=== PATIENT | female | born 1935 | race Caucasian/White ===

== ENCOUNTER 2018-12-09 14:19 | Inpatient (IN) ==
[2018-12-09] MEDS ORDERED: ONDANSETRON INJ 2 MG/ML 2 ML VIAL IV STA (14:33)
[2018-12-09] MEDS ORDERED: SODIUM CHLORIDE 0.9% 1000ML 1,000 ML IV ONE ×2 (14:33→15:59)
[2018-12-09] MEDS ORDERED: MoRPHine SULFATE 4 MG/ML 1 ML CARP\\VIAL IV STA (14:33)
[2018-12-09] MEDS ORDERED: MoRPHine SULFATE 2 MG/ML CARP ONE (14:48)
--- NOTE | 2018-12-09 14:49 | Emergency Department Note ---
Entered by Gogo Sosa acting as a scribe for Aniket Cruz MD History of Present Illness General Chief complaint: Illness Stated complaint: illness Time Seen by Provider: 12/09/18 14:21 Source: family (daughter; granddaughter) History of Present Illness Onset (ago): week(s) 1 Location: abdomen (left lower) Pain Consistency: + intermittent Quality: + sharp Relieved By: + medication (Tylenol) Exacerbated By: + eating and + other (going to the bathroom) Associated symptoms: + nausea/vomiting (positive nausea; negative vomiting ) and + other (positive bloody bowel movements; positive losing weight) Treatments prior to arrival: NSAID (ibuprofen ) The patient is a 83 year old white female w/ PMHx of ulcerative colitis who presents to the ED w/ CC of intermittent left lower abdominal pain beginning about one week prior to arrival, per the patient's granddaughter who is acting as the patient's outside rigger. The patient's daughter describes the patient's pain as sharp and states that this pain is exacerbated with eating and going to the bathroom. Per the patient's granddaughter, the patient states that this is not similar to her prior flare ups of ulcerative colitis. The patient's granddaughter states that the patient has been nauseous during this time, but denies vomiting. Per the patient's granddaughter, the patient has had blood bowel movements during this time. The patient's granddaughter states that the patient has been unable to eat or drink during this time, and states that the patient is losing weight. The patient's family denies any recent antibiotic use, recent travel, and recent surgeries. The patient's family states that the patient typically manages her ulcerative colitis through diet, and state that the patient tried to do a cleanse before her symptoms began. The patient's fami ly states that the patient has been taking Ibuprofen which has been relieving her pain. 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 and A total of 10 systems reviewed and were otherwise negative Physical Exam Vital Signs Vital Signs - 24 hr 12/09/18 14:34 12/09/18 15:33 12/09/18 17:45 Temperature 36.6 C Temperature Source Oral Sepsis Recent Fever Within 48 Hours No Sepsis Action Taken by Nursing No Action Required Pulse Rate 78 Pulse Rate [Apical] 172 H 73 Respiratory Rate 20 18 18 Respiratory Effort / Characteristics Non-Labored Respiratory Depth Normal Blood Pressure 142/81 H Blood Pressure [Right Arm] 110/85 137/73 Blood Pressure Mean 101 Blood Pressure Mean [Right Arm] 93 94 Pulse Oximetry 98 98 95 Oxygen Delivery Method Room Air Room Air 12/09/18 20:00 Temperature Temperature Source Sepsis Recent Fever Within 48 Hours Sepsis Action Taken by Nursing Pulse Rate Pulse Rate [Apical] 80 Respiratory Rate 24 Respiratory Effort / Characteristics Non-Labored Spontaneous Labored Respiratory Depth Normal Blood Pressure Blood Pressure [Right Arm] 120/80 Blood Pressure Mean Blood Pressure Mean [Right Arm] 93 Pulse Oximetry 96 Oxygen Delivery Method Room Air GENERAL: Short, thin, and cachectic in appearance. Non-toxic. EYE EXAM: Normal conjunctiva. PERRL, no anisocoria and EOM's grossly intact w/o pain. OROPHARYNX: Dry mucus membranes. Grossly normal dentition. NECK: Supple, no nuchal rigidity, no adenopathy, non-tender. no signs of meningismus. LUNGS: Clear to auscultation. Normal chest wall mechanics. HEART: NSR, no MRG. ABDOMEN: Mild diffuse abdominal discomfort. Not peritonitic. Abdomen soft, normo-active bowel sounds, no masses, no rebound or guarding. BACK: No CVA TTP. SKIN: No rashes and no bruising. UPPER EXTREMITIES: Upper extremities are grossly normal. LOWER EXTREMITIES: No pitting edema. No calf pain. NEURO EXAM: A&O x3, cranial nerves II-XII grossly intact, normal speech, moves all 4 extremities on command w/o issue. Course 1423: Past medical records reviewed. The patient was evaluated in room C11B. A complete history and physical exam was performed. 1517: The patient has heme positive stool with bright red blood. 1628: Upon viewing the color television console monitor, the patient now appears to be in sinus rhythm with her rate in the 60s. 1738: I updated the patient and her family. 1840: I discussed the case with Bambi SANDS who accepts the patient for further evaluation under Dr. Esposito Hospitalist service. Consultations Consultation #1: I discussed the case with Bambi SANDS who accepts the patient for further evaluation under Dr. Esposito Hospitalist service. Time: 18:40 Administered Medications Sodium Chloride (Nss) 500 mls @ 80 mls/hr IV .Q6H15M CHARI Stop: 01/08/19 18:44 Last Infusion: 12/09/18 22:52 Dose: 80 mls/hr Documented by: [id number] Infusion: 12/09/18 21:56 Dose: 0 mls/hr Documented by: [id number] Admin: 12/09/18 19:01 Dose: 80 mls/hr Documented by: [id number] Lorazepam (Ativan) 0.5 mg PO HS PRN PRN Reason: Insomnia Stop: 01/08/19 21:59 Last Admin: 12/09/18 22:56 Dose: 0.5 mg Documented by: [id number] Morphine Sulfate (Morphine Sulfate) 2 mg IV Q2H PRN PRN Reason: Severe Pain Stop: 12/23/18 21:57 Last Admin: 12/09/18 22:56 Dose: 2 mg Documented by: [id number] Discontinued Medications Calcium Carbonate (Tums) 1,500 mg PO NOW STA Stop: 12/09/18 16:00 Last Admin: 12/09/18 16:23 Dose: 1,500 mg Documented by: [id number] Sodium Chloride (Nss 1000ml) 1,000 mls @ 999 mls/hr IV .Q1H1M ONE Stop: 12/09/18 15:33 Last Infusion: 12/09/18 15:45 Dose: 0 mls/hr Documented by: [id number] Admin: 12/09/18 15:28 Dose: 999 mls/hr Documented by: [id number] Sodium Chloride (Nss 1000ml) 1,000 mls @ 999 mls/hr IV .Q1H1M ONE Stop: 12/09/18 16:59 Last Infusion: 12/09/18 18:59 Dose: 0 mls/hr Documented by: [id number] Admin: 12/09/18 16:17 Dose: 999 mls/hr Documented by: [id number] Piperacillin Sod/Tazobactam Sod (Zosyn) 4.5 gm in 120 mls @ 240 mls/hr IV NOW ONE Stop: 12/09/18 18:40 Last Infusion: 12/09/18 19:31 Dose: 0 mls/hr Documented by: [id number] Admin: 12/09/18 18:59 Dose: 240 mls/hr Documented by: [id number] Ioversol (Optiray 320 100ml) 62 ml IV ONCE PRN PRN Reason: Interaction Checking Stop: 12/13/18 17:11 Last Admin: 12/09/18 17:13 Dose: 62 ml Documented by: [id number] Morphine Sulfate (Morphine Sulfate) 2 mg IV NOW STA Stop: 12/09/18 14:34 Last Admin: 12/09/18 15:29 Dose: Not Given Documented by: [id number] Morphine Sulfate (Morphine Sulfate) Confirm Administered Dose 2 mg .ROUTE .STK- MED ONE Stop: 12/09/18 14:49 Last Admin: 12/09/18 15:29 Dose: 2 mg Documented by: [id number] Morphine Sulfate (Morphine Sulfate) 2 mg IV NOW STA Stop: 12/09/18 19:12 Last Admin: 12/09/18 19:27 Dose: 2 mg Documented by: [id number] Ondansetron HCl (Zofran) 4 mg IV NOW STA Stop: 12/09/18 14:34 Last Admin: 12/09/18 15:28 Dose: 4 mg Documented by: [id number] Potassium Chloride (Joyce Ciel Elix) 40 meq PO NOW STA Stop: 12/09/18 16:00 Last Admin: 12/09/18 19:16 Dose: Not Given Documented by: [id number] Potassium Chloride (Klor-Con M20) 40 meq PO NOW STA Stop: 12/09/18 16:10 Last Admin: 12/09/18 16:23 Dose: 40 meq Documented by: [id number] Medical Decision Making Medical Records Attestation: I reviewed the patient's medical records. Home Medications Current Medication List: was personally reviewed by me Laboratory Data Attestation: I reviewed the patient's lab results. Result diagrams: 12/09/18 15:26 12/09/18 15:26 Lab Results 12/09/18 12/09/18 12/09/18 Range/Units 14:51 14:51 15:26 WBC 18.90 H (4.8-10.8) K/uL RBC 5.13 (4.2-5.4) M/uL Hgb 15.8 (12.0-16.0) g/dL Hct 45.1 (37-47) % MCV 87.9 (80-100) fL MCH 30.8 (25-34) pg MCHC 35.0 (32-36) g/dL RDW Std Deviation 48.4 H (36.4-46.3) fL RDW Coeff of Yasmany 15.1 H (11.5-14.5) % Plt Count 451 H (130-400) K/uL MPV 10.4 (7.4-10.4) fL Immature Gran % (Auto) 0.5 % Neut % (Auto) 87.0 % Lymph % (Auto) 8.4 % Haakon % (Auto) 3.8 % Eos % (Auto) 0.1 % Baso % (Auto) 0.2 % Immature Gran # (Auto) 0.09 H (0.00-0.02) K/uL Neut # (Auto) 16.45 H (1.4-6.5) K/uL Lymph # (Auto) 1.59 (1.2-3.4) K/uL Haakon # (Auto) 0.71 H (0.11-0.59) K/uL Eos # (Auto) 0.02 (0-0.5) K/uL Baso # (Auto) 0.04 (0-0.2) K/uL PT (9.0-12.0) Seconds INR (0.9-1.1) APTT (21.0-31.0) Seconds PTT Ratio Sodium (136-145) mmol/L Potassium (3.5-5.1) mmol/L Chloride (98-107) mmol/L Carbon Dioxide (21-32) mmol/L Anion Gap (3-11) BUN (7-18) mg/dl Creatinine (0.6-1.2) mg/dl Est Cr Clr Drug Dosing ml/min Est GFR ( Amer) Est GFR (Non-Af Amer) BUN/Creatinine Ratio (10-20) Glucose (70-99) mg/dl Calcium (8.5-10.1) mg/dl Magnesium (1.8-2.4) mg/dl Total Bilirubin (0.2-1) mg/dl AST (15-37) U/L ALT (12-78) U/L Alkaline Phosphatase (45-117) U/L Total Protein (6.4-8.2) gm/dl Albumin (3.4-5.0) gm/dl Globulin (2.5-4.0) gm/dl Albumin/Globulin Ratio (0.9-2) Lipase (73-393) U/L Stl C. diff Tox B Gene Negative Cdiff Gene (Neg) Stl C. diff [id number] Cancelled C. difficile Tox B Gene Cancelled 12/09/18 12/09/18 Range/Units 15:26 15:26 WBC (4.8-10.8) K/uL RBC (4.2-5.4) M/uL Hgb (12.0-16.0) g/dL Hct (37-47) % MCV (80-100) fL MCH (25-34) pg MCHC (32-36) g/dL RDW Std Deviation (36.4-46.3) fL RDW Coeff of Yasmany (11.5-14.5) % Plt Count (130-400) K/uL MPV (7.4-10.4) fL Immature Gran % (Auto) % Neut % (Auto) % Lymph % (Auto) % Haakon % (Auto) % Eos % (Auto) % Baso % (Auto) % Immature Gran # (Auto) (0.00-0.02) K/uL Neut # (Auto) (1.4-6.5) K/uL Lymph # (Auto) (1.2-3.4) K/uL Haakon # (Auto) (0.11-0.59) K/uL Eos # (Auto) (0-0.5) K/uL Baso # (Auto) (0-0.2) K/uL PT 11.5 (9.0-12.0) Seconds INR 1.1 (0.9-1.1) APTT 25.3 (21.0-31.0) Seconds PTT Ratio 0.9 Sodium 143 (136-145) mmol/L Potassium 2.6 L (3.5-5.1) mmol/L Chloride 102 (98-107) mmol/L Carbon Dioxide 27 (21-32) mmol/L Anion Gap 13.0 H (3-11) BUN 51 H (7-18) mg/dl Creatinine 1.34 H (0.6-1.2) mg/dl Est Cr Clr Drug Dosing 17.6 ml/min Est GFR ( Amer) 42.4 Est GFR (Non-Af Amer) 36.5 BUN/Creatinine Ratio 38.0 H (10-20) Glucose 89 (70-99) mg/dl Calcium 8.3 L (8.5-10.1) mg/dl Magnesium 2.4 (1.8-2.4) mg/dl Total Bilirubin 0.4 (0.2-1) mg/dl AST 35 (15-37) U/L ALT 30 (12-78) U/L Alkaline Phosphatase 190 H (45-117) U/L Total Protein 5.9 L (6.4-8.2) gm/dl Albumin 1.8 L (3.4-5.0) gm/dl Globulin 4.1 H (2.5-4.0) gm/dl Albumin/Globulin Ratio 0.4 L (0.9-2) Lipase 155 (73-393) U/L Stl C. diff Tox B Gene (Neg) Stl C. diff [id number] C. difficile Tox B Gene Imaging Data Radiologist's Impression: Radiology results as stated below per my review and the radiologist's interpretation: CT OF THE ABDOMEN AND PELVIS WITH CONTRAST CLINICAL HISTORY: Diffuse abdominal pain. COMPARISON STUDY: None. TECHNIQUE: Following IV administration of 62 mL of Optiray-320, axial images of the abdomen and pelvis were obtained from the lung bases to the proximal femurs. Images were reviewed in the axial, sagittal, and coronal planes. IV contrast was administered without complication. Automated exposure control was utilized for the study. A dose lowering technique was utilized adhering to the principles of ALARA. CT DOSE: 215.65 mGy.cm FINDINGS: Lung bases are unremarkable. The liver, spleen, adrenal glands and pancreas are unremarkable. There is no pancreatic ductal dilatation. There is mild dilatation of the common bile duct. There are tiny densities within the distal common bile duct which favor tiny stones. There are gallstones within the gallbladder. The gallbladder is not distended. Note is made of a 2.2 cm focus of fat within the right upper quadrant, adjacent to the gallbladder fundus. This is intraperitoneal location. Moderate wall thickening of the colon and rectum is noted. There is no free air or abscess. No pneumatosis or portal venous gas is present. Sensitivity for detection mucosal lesions is diminished given CT technique. The appendix is not visualized. A few uterine fibroids are noted, one of which is partially calcified. Note is made of an 11 x 8.7 cm fat-containing right adnexal mass which contains a fat/fluid level and a 4.3 cm central density suggestive of a Rokitansky nodule. There is no lymphadenopathy. Mild diffuse mesenteric infiltration is noted. There is no abscess. No suspicious osseous le jesi is present. IMPRESSION: 1. 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 2.2 cm focus of fat within the right upper quadrant suggests minimal spontaneous rupture of the dermoid. Mild diffuse mesenteric infiltration is nonspecific and a chemical peritonitis cannot be excluded. Gynecologic consultation is recommended. Findings discussed with Dr. Cruz at time of dictation. 2. Moderate wall thickening of the colon and rectum which represents a nonspecific pancolitis. No abscess or free air. 3. Cholelithiasis. 4. Suspected small common bile duct calculi with mild dilatation of the common bile duct. Electronically signed by: Grant Berry M.D. 12/09/2018 5:34 PM ECG Data Attestation: I personally reviewed and interpreted this ECG as follows: Indication: abdominal pain Rate (beats per minute): 137 Rhythm: other (sinus tachycardia vs SVT vs atrial flutter) Findings: + other (monomorphic with narrow QRS; prolonged QTC) Blood Pressure Blood Pressure Findings: Normal blood pressure MDM Narrative The patient is a 83 year old white female w/ PMHx of ulcerative colitis who pre sents to the ED w/ CC of intermittent left lower abdominal pain beginning about one week prior to arrival, per the patient's granddaughter who is acting as the patient's outside rigger. Differential diagnosis: Etiologies such as appendicitis, diverticulitis, PUD, biliary pathology, UTI, pancreatitis, obstruction, mesenteric ischemia, aortic pathology, infections, inflammatory bowel disease, renal colic, as well as others were entertained. Patient was seen and evaluated the bedside. The patient was brought in by her family as the patient has had approximate 1 week of symptoms. The patient been having some worsening abdominal discomfort and associated bleeding with bowel movements as well as more frequent bowel movements. Patient is a prior history of ulcerative colitis but is only been treated with diet for the last 40 years and does not take any medications. Patient does not take any anticoagulant or antiplatelet medications. The patient has been taking ibuprofen 800 mg once daily which does help improve her discomfort. Patient is fairly thin and cachectic. The patient did a blood work completed along with CT of the pelvis and was given medications for symptom improvement and IV fluids given that she appears dry. The patient's blood work does show a white count of 18. Given the patient's abdominal discomfort and associated rectal bleeding was given Zosyn. 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 After discussion with the patient's family the patient had been told that she had had a benign tumor within the abdomen for some time. It does not show that there is any evidence of obstruction and no abscess. The patient does have an element of c olitis. There is no evidence of abscess or free air. The white count may simply be reactive from her history of ulcerative colitis but given the after mentioned treated empirically with antibiotics. The patient is afebrile. The patient did have runs of tachycardia that may been related to possible SVT versus AVNRT versus atrial but the patient was significant in the hypokalemic and associated hypercalcemia with dehydration from her diarrhea that she was treated symptomatically by repeating her electrolytes as well as IV fluids. This seem to resolve her tachycardia. I did review the patient's continuous ekg monitor tech after this been completed and the patient appeared to be in normal sinus rate and rhythm with a rate in the 60s. I did discuss the findings with the patient's family at the bedside. They are comfortable with staying at this hospital at this time. I did speak with the o n-call hospitalist agreed to further evaluate treat the patient. Patient was admitted to the medicine service. Of note the patient did have some associated cholelithiasis as well as may be mildly elevated CBD. The patient's T bili is normal. Patient does not localize to the right upper quadrant. Impression & Plan Ulcerative colitis, Abdominal pain, Dehydration, Hypokalemia, Hypocalcemia, Dermoid tumor Discharge Plan Visit Data *Final* Discharge Date/Time: 12/09/18 20:55 Chief Complaint: Illness Stated Complaint: illness ED Provider: Aniket Cruz Discharge Problem: Ulcerative colitis, Abdominal pain, Dehydration, Hypokalemia, Hypocalcemia, Dermoid tumor Patient Disposition: Admitted As Inpatient Discharge Instructions Interventions: ED Discharge Assessment Last Done: 12/09/18 20:55 Discharge Problem: Ulcerative colitis Qualifiers: Ulcerative colitis location: unspecified ulcerative colitis location Digestive disease complication type: with rectal bleeding Qualified Code(s): K51.911 - Ulcerative colitis, unspecified with rectal bleeding Abdominal pain Qualifiers: Abdominal location: lower abdomen, unspecified Qualified Code(s): R10.30 - Lower abdominal pain, unspecified The scribe's documentation has been prepared under my direction and personally reviewed by me in its entirety. I confirm that the note above accurately reflects all work, treatment, procedures, and medical decision making performed by me.
[2018-12-09 15:43] LABS: Basophils # (auto) 0.04 K/uL (0-0.2); Basophils % (auto) 0.2 %; Eosinophils # (auto) 0.02 K/uL (0-0.5); Eosinophils % (auto) 0.1 %; Hematocrit (blood only) 45.1 % (37-47); Hemoglobin 15.8 g/dL (12.0-16.0); Immature Granulocytes # (auto) 0.09 K/uL (0.00-0.02); Immature Granulocytes % (auto) 0.5 %; Lymphocytes # (auto) 1.59 K/uL (1.2-3.4); Lymphocytes % (auto) 8.4 %; Mean Corpuscular Volume 87.9 fL (80-100); Mean Platelet Volume 10.4 fL (7.4-10.4); Monocytes # (auto) 0.71 K/uL (0.11-0.59); Monocytes % (auto) 3.8 %; Neutrophils # (auto) 16.45 K/uL (1.4-6.5); Platelet Count 451 K/uL (130-400); RDW Coefficient of Variation 15.1 % (11.5-14.5); RDW Standard Deviation 48.4 fL (36.4-46.3); Red Blood Count 5.13 M/uL (4.2-5.4)
[2018-12-09 15:47] LABS: INR 1.1 (0.9-1.1); Partial Thromboplastin Ratio 0.9; Partial Thromboplastin Time 25.3 Seconds (21.0-31.0); Prothrombin Time 11.5 Seconds (9.0-12.0)
[2018-12-09 15:55] LABS: Albumin Level 1.8 gm/dl (3.4-5.0); Calcium 8.3 mg/dl (8.5-10.1); Creatinine Clr Calc Pharmacy 17.6 ml/min; Est GFR (African American) 42.4; Est GFR (Non-African American) 36.5; Magnesium 2.4 mg/dl (1.8-2.4); Potassium 2.6 mmol/L (3.5-5.1)
[2018-12-09 15:58] LABS: Albumin Globulin Ratio 0.4 (0.9-2); Bilirubin,Total 0.4 mg/dl (0.2-1); Globulin 4.1 gm/dl (2.5-4.0); Total Protein 5.9 gm/dl (6.4-8.2)
[2018-12-09] MEDS ORDERED: POTASSIUM CHLORIDE 20 MEQ/15 ML UDC PO STA (15:59)
[2018-12-09] MEDS ORDERED: CALCIUM CARBONATE 500 MG CHEWABLE TAB PO STA (15:59)
[2018-12-09] MEDS ORDERED: POTASSIUM CHLORIDE 20 MEQ TABCR PO STA (16:09)
[2018-12-09] MEDS ORDERED: IOVERSOL 100ml IV PRN (17:12)
--- NOTE | 2018-12-09 17:35 | CT Scan Report ---
CT OF THE ABDOMEN AND PELVIS WITH CONTRAST CLINICAL HISTORY: Diffuse abdominal pain. COMPARISON STUDY: None. TECHNIQUE: Following IV administration of 62 mL of Optiray-320, axial images of the abdomen and pelvi s were obtained from the lung bases to the proximal femurs. Images were reviewed in the axial, sagitt al, and coronal planes. IV contrast was administered without complication. Automated exposure contro l was utilized for the study. A dose lowering technique was utilized adhering to the principles of A RUPALI. CT DOSE: 215.65 mGy.cm FINDINGS: Lung bases are unremarkable. The liver, spleen, adrenal glands and pancreas are unremarkabl e. There is no pancreatic ductal dilatation. There is mild dilatation of the common bile duct. There are tiny densities within the distal common bile duct which favor tiny stones. There are gallstones w ithin the gallbladder. The gallbladder is not distended. Note is made of a 2.2 cm focus of fat within the right upper quadrant, adjacent to the gallbladder fundus. This is intraperitoneal location. Mode rate wall thickening of the colon and rectum is noted. There is no free air or abscess. No pneumatosi s or portal venous gas is present. Sensitivity for detection mucosal lesions is diminished given CT t echnique. The appendix is not visualized. A few uterine fibroids are noted, one of which is partially calcified. Note is made of an 11 x 8.7 cm fat-containing right adnexal mass which contains a fat/flu id level and a 4.3 cm central density suggestive of a Rokitansky nodule. There is no lymphadenopathy. Mild diffuse mesenteric infiltration is noted. There is no abscess. No suspicious osseous lesion is present. IMPRESSION: 1. 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 2.2 cm focus of fat w ithin the right upper quadrant suggests minimal spontaneous rupture of the dermoid. Mild diffuse mese nteric infiltration is nonspecific and a chemical peritonitis cannot be excluded. Gynecologic consult ation is recommended. Findings discussed with Dr. Cruz at time of dictation. 2. Moderate wall thickening of the colon and rectum which represents a nonspecific pancolitis. No abs cess or free air. 3. Cholelithiasis. 4. Suspected small common bile duct calculi with mild dilatation of the common bile duct. Electronically signed by: Grant Berry M.D. 12/09/2018 5:34 PM
[2018-12-09] MEDS ORDERED: PIPERACILLIN/TAZOBACTAM 4.5 GM/120 ML BAG IV ONE (18:11)
[2018-12-09] MEDS ORDERED: PIPERACILL/TAZOBAC CONSULT ACTIVE PRN (18:11)
[2018-12-09] MEDS: SODIUM CHLORIDE 0.9% 500 ML IV SCH (19:01)
[2018-12-09] MEDS ORDERED: MoRPHine SULFATE 2 MG/ML CARP IV STA (19:11)
--- NOTE | 2018-12-09 20:05 | History & Physical Report ---
Date of Service December 09, 2018 Assessment & Plan (1) Pancolitis: (2) Rectal bleeding: Patient with reported history of ulcerative colitis diagnosed in 1960s in [place] and reports was initially treated with medications has not been on any medication treatment for approximately 20 years and has not received any further follow-up. Reported intermittent episodes of bloody stools several times of year with reported symptoms controlled with diet modifications. Presented with complaint of lower abdominal pain for 5 days with associated bloody loose stools and nausea. Patient has not been eating or drinking the past several days. Denies known fever In ER patient afebrile, initial pulse 78 with episode of tachycardia into the 170s and then down to 70s, RR: 20, BP 142/81, 98% on room air. WBC: 18, H/H 15.8/45, PLT: 451 CT ABD/PELVIS: Moderate wall thickening of the colon and rectum which represents a nonspecific pancolitis. No abscess or free air. -In ER patient was given 2 L NSS, Zosyn, Zofran, morphine -Negative C. difficile -Pending stool cultures -Rule out sepsis. Blood cultures and lactic acid was not initially drawn in ER and patient had refused repeat lab draw -Continue Zosyn -IVF (3) Hypokalemia: Patient with poor oral intake past several days K: 2.6 -In ER patient was given 40 mEq oral potassium Calcium: 8.3, calcium corrected at 10.1 for albumin of 1.8 (4) Tachycardia: Pt with reported episode tachycardia in ER with rates up to 170's Current sinus rhythm (5) Adnexal mass: Reported that patient had known ovarian cysts diagnosed in the which she thought was told was benign and shows to have no further intervention Reported approximately 30 pound weight loss over the past [address] abdomen and pelvis: 11 x 8.7 cm right adnexal mass consistent with a right ovarian dermoid cyst. 2.2 cm focus of fat within the right upper quadrant suggests minimal spontaneous rupture of the dermoid. Mild diffuse mesenteric infiltration is nonspecific and a chemical peritonitis cannot be excluded. Gynecologic consultation is recommended. Findings discussed with Dr. Cruz at time of dictation. (6) Common bile duct dilatation: CT ABD/PELVIS: Cholelithiasis. Suspected small common bile duct calculi with mild dilatation of the common bile duct. Total bili: 0.4, AST: 35, ALT: 30, alk phos: 190 Pt was seen and care coordinated with Dr Briseno. See addendum for PE and further assessment and plan. History of Present Illness Chief Complaint: Abdominal pain Primary Care Provider: NO PCP Pt is 83 y/o F with PMH reported ulcerative colitis presented to ER with c/o abdominal pain x 5 days. Pt is Cymro speaking and reported that she is currently refusing manager sports. Granddaughter is currently acting as embedded firmware developer. History obtained from pt's granddaughter and pt's daughter gives history over the phone. Reports pt was diagnosed with ulcerative colitis in 1967 in [place]. States 5 days ago started with lower abdominal pain with associated loose red bloody stools and mucous in stools and "black flecks". Also c/o nausea. Reports past several days pt has not been eating or drinking and has had increased weakness. Denies known vomiting. Reports highest recorded temp was 37.2C. Tried Ibuprofen 400mg a couple of times without abdominal pain. Abdominal pain has continued to worsen prompting ER visit today. Denies CP, SOB, dizziness, urinary symptoms. States pt initially diagnosed with ulcerative colitis by colonoscopy and was treated with medications initially for colitis however hasn't been on treatment for approx 20 years and reports that symptoms are diet controlled. Reports that pt has "flares seasonally" which symptoms are bloody stools for days to weeks and denies abdominal pain with these. States that pt usually manages symptoms with diet and has not needed antibiotics or hospitalization for 15 years. Reports pt been living in [facility] for approx 15 years and does not follow with PCP. States over past 6 months pt with approx 30 pound weight loss. Unknown if any night sweats. Reports known ovarian mass which was dx in and was reported suspected benign and pt denied any further treatment. Further ROS unable to be obtained. Unable to obtain FH. Pt uncooperative and refuses further history. Pt is denying exam from this provider. See further exam from Dr Briseno. Allergies Allergy/AdvReac Type Severity Reaction Status Date / Time No Known Allergies Allergy Unverified 12/09/18 15:04 Home Medications Home Medications Medication Instructions Recorded Confirmed Type ibuprofen 800 mg PO TID PRN 12/09/18 12/09/18 History Past Med/Surg History Medical History Colitis (Chronic) Ulcerative colitis (Chronic) Surgical History H/O colonoscopy (Chronic) Reported in in [place] Social History Preferred Language: Cymro Communication Ability: Effective Director Enterprise Systems Required: No Beliefs That Will Affect Care: None Current Living Situation: Family Current Living Situation Comment: Lives with her daughter and her daughters - Madeline Other Information That Helps Us Care for You: No Feels Safe at Home: Yes Safety Concerns: Feels Safe At This Time Smoking Status: Never smoker Hx Alcohol Use: No Hx Substance Use: No Review of Systems Constitutional: no fever and no weight loss Eyes: no diplopia and no worsening vision Ear, Nose, Mouth, Throat: + ear pain (left); no nasal congestion, no sinus pain/pressure and no sore throat Respiratory: no cough and no dyspnea Cardiovascular: no chest pain, no palpitations and no edema Gastrointestinal: as per Subjective / HPI Genitourinary: no dysuria and no hematuria Musculoskeletal: no joint pain and no myalgia Integumentary: no rash and no new lesions Neurologic: no headache(s) Endocrine: no polydipsia and no polyuria Hematologic / Lymphatic: no easy bleeding, no easy bruising and no lymphadenopathy Results & Data Vital Signs (Past 12 Hours) Vital Signs Temp Pulse Pulse Resp BP BP Pulse Ox 12/09/18 17:45 73 18 137/73 95 12/09/18 15:33 172 H 18 110/85 98 12/09/18 14:34 36.6 C 78 20 142/81 H 98 Laboratory Results Short CBC 12/09/18 Range/Units 15:26 WBC 18.90 H (4.8-10.8) K/uL Hgb 15.8 (12.0-16.0) g/dL Hct 45.1 (37-47) % Plt Count 451 H (130-400) K/uL BMP 12/09/18 15:26 Sodium 143 Potassium 2.6 L Chloride 102 Carbon Dioxide 27 BUN 51 H Creatinine 1.34 H Glucose 89 Calcium 8.3 L Liver Function 12/09/18 Range/Units 15:26 Total Bilirubin 0.4 (0.2-1) mg/dl AST 35 (15-37) U/L ALT 30 (12-78) U/L Alkaline Phosphatase 190 H (45-117) U/L Albumin 1.8 L (3.4-5.0) gm/dl Diagnostic Findings CT ABD/PELVIS: IMPRESSION: 1. 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 2.2 cm focus of fat within the right upper quadrant suggests minimal spontaneous rupture of the dermoid. Mild diffuse mesenteric infiltration is nonspecific and a chemical peritonitis cannot be excluded. Gynecologic consultation is recommended. Findings discussed with Dr. Cruz at time of dictation. 2. Moderate wall thickening of the colon and rectum which represents a nonspecific pancolitis. No abscess or free air. 3. Cholelithiasis. 4. Suspected small common bile duct calculi with mild dilatation of the common bile duct. Supervising Physician Co-Signing Physician Notes HISTORY: Record reviewed. Patient interviewed and examined. Care coordinated with Nimo Garza PA-C. Please refer to her documentation for patient's history. Briefly, 83-year-old female with long history of ulcerative colitis with mild to moderate intermittent symptoms over recent years. She has not received regular treatment. Recently experiencing more severe symptoms with left lower quadrant abdominal pain, loose stools, elva blood, and weight loss. Came to the ED for further evaluation. Received morphine in the ED with improvement of her abdominal pain. Patient speaks Cymro and prefer not to use a professional manager sports. Her granddaughter assisted with translation at the patient's request. EXAM: General-cachectic, no acute distress Eyes- PERRLA, EOMI, anicteric Ears- hearing grossly intact, some cerumen, TMs clear Oropharynx- dentition poor Neck- supple; trachea midline; no masses; no thyromegaly Lungs- clear to auscultation and percussion; no respiratory distress Cardiovascular- RRR; no murmur; no gallop; no JVD; no pretibial edema Abdomen- + bowel sounds, soft, moderate LLQ tenderness without rebound or guarding (after receiving analgesics) Extremities- no cyanosis; no clubbing; no calf tenderness Neuro- alert, oriented Lymphatics- no cervical adenopathy Skin- warm & dry DATA: Hemoglobin 15.8, white count 18,900, platelet count 451,000. Potassium 2.6, BUN 51, creatinine 1.34. Serum calcium 8.3 with an albumin of 1.8. Total bilirubin 0.4, AST 35, ALT 30, alkaline phosphatase 190. Other lab studies as noted. CT abdomen and pelvis per Radiology interpretation demonstrated moderate wall thickening of the colon and rectum consistent with pancolitis, cholelithiasis with suspected small common duct calculi with mild dilatation of the common bile duct, 11 x 9 cm right adnexal mass consistent with right ovarian dermoid with concern about possible "minimal spontaneous rupture of the dermoid". EKG performed at 1549 reviewed and demonstrated atrial tachycardia at 140/minute. ASSESSMENT AND PLAN: History of ulcerative colitis, now with apparent flare with abdominal pain, diarrhea, rectal bleeding, and weight loss. Was also consider other etiologies of symptoms including malignancy, infection, etc. CT demonstrates pancolitis; also demonstrates pelvic mass, suspected dermoid. CT also demonstrated cholelithiasis with dilatation of common bile duct. However, patient's symptoms do not appear to be biliary in nature and LFTs are normal except for slightly elevated alkaline phosphatase. White count is elevated. Did not meet criteria for SIRS at time of p resentation. Subsequent atrial tachycardia probably secondary to hypokalemia. Does not appear to be septic. Blood cultures and lactic acid were recommended for completeness of diagnostic evaluation, but patient declined. Initial management will consist of NPO status, IV fluids, IV antibiotic therapy with piperacillin/tazobactam. Consult GI and gynecology. Severe hypokalemia probably secondary to GI losses. Replace, follow. Monitor for arrhythmias. BUN/creatinine elevated. Probable dehydration/acute kidney injury secondary to GI fluid losses. IV fluids. Follow. SCDs for DVT prophylaxis. Please refer to NESSA Garner's documentation for discussion of other issues.
[2018-12-09] MEDS ORDERED: LORazepam 0.5 MG TAB PO PRN (22:00)
[2018-12-09] MEDS: MoRPHine SULFATE 2 MG/ML CARP IV PRN (22:56)
[2018-12-10] MEDS: SODIUM CHLORIDE 0.9% 500 ML IV SCH (02:04)
[2018-12-10] MEDS ORDERED: PIPERACILLIN/TAZOBACTAM 3.375 GM in DEXTROSE 5% 100 ML IV SCH ×2 (04:00→12:00)
[2018-12-10] MEDS: D5W AND 1/2NSS + 40MEQ KCL 40 MEQ/1,000 ML BAG IV SCH ×2 (04:14→11:54)
[2018-12-10 07:01] LABS: Appearance Urine Clear (Clear); Bacteria Urine Automated Negative (Negative); Bilirubin Urine Negative (Negative); Blood Urine Negative (Negative); Color Urine Orange; Epithelial Cell Urine Auto >30 /lpf (0-5); Glucose Urine UA Negative (Negative); Ketones Urine 1+ (Negative); Leukocyte Esterase Urine Negative (Negative); Nitrite Urine Negative (Negative); Protein Urine Trace (Negative); Specific Gravity Urine 1.036 (1.000-1.030); Urobilinogen Urine Negative (Negative)
[2018-12-10 07:58] LABS: Hematocrit (blood only) 40.4 % (37-47); Hemoglobin 13.6 g/dL (12.0-16.0); Mean Corpuscular Hgb Conc 33.7 g/dL (32-36); Mean Corpuscular Volume 87.8 fL (80-100); Mean Platelet Volume 10.1 fL (7.4-10.4); Platelet Count 338 K/uL (130-400); RDW Coefficient of Variation 15.3 % (11.5-14.5); RDW Standard Deviation 48.7 fL (36.4-46.3); White Blood Count 17.99 K/uL (4.8-10.8)
[2018-12-10 08:29] LABS: Basophils # (auto) 0.02 K/uL (0-0.2); Basophils % (auto) 0.1 %; Echinocytes 1+; Eosinophils # (auto) 0.01 K/uL (0-0.5); Eosinophils % (auto) 0.1 %; Immature Granulocytes # (auto) 0.15 K/uL (0.00-0.02); Immature Granulocytes % (auto) 0.8 %; Lymphocytes # (auto) 1.12 K/uL (1.2-3.4); Lymphocytes % (auto) 6.2 %; Monocytes # (auto) 0.51 K/uL (0.11-0.59); Monocytes % (auto) 2.8 %; Neutrophils # (auto) 16.18 K/uL (1.4-6.5)
[2018-12-10 08:35] LABS: Alanine Aminotransferase 27 U/L (12-78); Albumin Globulin Ratio 0.4 (0.9-2); Albumin Level 1.5 gm/dl (3.4-5.0); Alkaline Phosphatase 144 U/L (45-117); Aspartate Aminotransferase 29 U/L (15-37); BUN Creatinine Ratio 39.3 (10-20); Bilirubin Direct < 0.1 mg/dl (0-0.2); Bilirubin,Total 0.3 mg/dl (0.2-1); Blood Urea Nitrogen 42 mg/dl (7-18); Calcium 8.1 mg/dl (8.5-10.1); Carbon Dioxide 28 mmol/L (21-32); Chloride 111 mmol/L (98-107); Creatinine Clr Calc Pharmacy 22.5 ml/min; Est GFR (African American) 55.6; Globulin 3.4 gm/dl (2.5-4.0); Glucose 144 mg/dl (70-99); Potassium 3.1 mmol/L (3.5-5.1); Sodium 146 mmol/L (136-145); Total Protein 4.9 gm/dl (6.4-8.2)
[2018-12-10] MEDS: POTASSIUM CHLORIDE 20 MEQ TABCR PO SCH ×2 (09:51→15:40)
[2018-12-10] MEDS: MoRPHine SULFATE 2 MG/ML CARP IV PRN ×2 (09:51→14:00)
--- NOTE | 2018-12-10 10:14 | Gastrointestinal Consultation ---
Date of Consultation December 10, 2018 Assessment & Plan (1) Pancolitis: 83 year old marshallese speaking female refusing translation services with history of UC diagnosed years ago, not on daily therapy who presented though the ED with abdominal pain, rectal bleeding and about a [address] suggestive of pancolitis, c.diff negative but culture pending. 11 x 8.7 cm right adnexal mass, gallstones w/ concern for biliary stone as well. She is afebrile but evidence of leukocytosis, H&H stable. Leukocytosis - Continue broad spectrum ABX - Blood cultures Gallstones/CBD stone - I did discuss this with family and pt - Family tells me "this is not her problem right now" - I would recommend LFT trending - MRCP for better evaluation Pancolitis, history of UC - C.diff negative - Await stool culture - Check CRP/ESR - Can consider steroid therapy pending evaluation of leukocytosis, results of stools - Antiemetic PRN - Analgesia PRN - Bowel rest Thank you for allowing us to participate in the care of this patient. Please call with any acute changes, questions or concerns. Please see addendum below with additional recommendation from my supervising physician. Present on Admission?: Yes (2) Rectal bleeding: (3) Ulcerative colitis: Present on Admission?: Yes (4) Common bile duct dilatation: Present on Admission?: Yes Supervising Physician Co-Signing Physician Notes I have personally seen and examined the patient with WICHO Baumann. Her note reflects my exam and findings. I agree with her impression and plan. Awaiting stool studies. DRAPERY COUNSELOR to comment on abnormal CT findings. Patient has refused colonoscopy but may need to readdress as more clinical data is resulted. Discussed with family at bedside as well. Unclear prior GI history. Agree with checking inflammatory markers. Maitas Avalos M.D. History of Present Illness Reason for Consultation: colitis, hisotry of UC Requesting Physician: Tj Attending Physician: Bina Spencer, DO History of Present Illness 83 year old female with history of ulcerative colitis who does not regularly follow with physicians in the [place] who presented through the ED w/ abdominal pain and diarrhea - GI was asked to evaluate for pancolitis. Pt was seen and evaluated, chart reviewed. Family at bedside. Refusing translation services. Translation provided through daughter as pt only speaks Senegalese. Notes she diagnosed w/ ulcerative colitis nearly 60 years ago. Has never been on therapy for this. Would often have flairs requiring admission about 1-2 times a year until she was able to modify her diet. Notes overall she has had fairly good control of her GI symptoms. Family notes about a 50 lb unintentional weight loss over the past 5/6 months. About one week ago started having lower abd pain, diarrhea w/ dark red blood. They are unable to verify how often or how frequent the stools are. Denies any UGI symptoms specifically no vomiting. No melena. No fever, chills, CP, SOB. c.diff negative culture pending CT: 11 x 8.7 cm right adnexal mass consistent with a right ovarian dermoid cyst. 2.2 cm focus of fat within the right upper quadrant suggests minimal spontaneous rupture of the dermoid. Mild diffuse mesenteric infiltration is nonspecific and a chemical peritonitis cannot be excluded. Gynecologic consultation is recommended. Findings discussed with Dr. Cruz at time of dictation.Moderate wall thickening of the colon and rectum which represents a nonspecific p ancolitis. No abscess or free air. Cholelithiasis.Suspected small common bile duct calculi with mild dilatation of the common bile duct. Allergies Allergy/AdvReac Type Severity Reaction Status Date / Time No Known Allergies Allergy Unverified 12/09/18 15:04 Home Medications Home Medications Medication Instructions Recorded Confirmed Type ibuprofen 800 mg PO TID PRN 12/09/18 12/09/18 History Patient History Medical History Colitis (Chronic) Ulcerative colitis (Chronic) Surgical History H/O colonoscopy (Chronic) Reported in s in [place] Social History Preferred Language: Senegalese Communication Ability: Speaks Petey Slot Machine Mechanic Required: No Beliefs That Will Affect Care: None Current Living Situation: Family Current Living Situation Comment: Lives with her daughter and her daughters - Madeline Other Information That Helps Us Care for You: No Feels Safe at Home: Yes Safety Concerns: Feels Safe At This Time Smoking Status: Never smoker Hx Alcohol Use: No Hx Substance Use: No Review of Systems Constitutional: no fever, no chills and no fatigue Respiratory: no cough, no dyspnea and no wheezing Cardiovascular: no chest pain, no radiating jaw, neck or arm pain, no dyspnea on exertion and no claudication Gastrointestinal: + change in stools; no abdominal pain, no cramping, no blood in stools and no melena Physical Exam Constitutional: + ill appearing (chronic) and + thin; no acute distress Neck: trachea midline Respiratory: normal respiratory effort, lungs clear to auscultation Cardiovascular: Rate/Rhythm: regular rate and regular rhythm Gastrointestinal (Abdomen): Percussion/Palpation: abdomen soft; abdomen nontender, no guarding, abdomen not rigid, no abdominal mass and no ascites Skin: no rashes, warm and dry Results & Data Vital Signs (Past 12 Hours) Vital Signs Temp Pulse Pulse Resp BP Pulse Ox 12/10/18 07:24 36.3 C L 16 145/80 H 99 12/10/18 03:08 36.4 C L 73 14 106/64 95 12/10/18 02:03 66 90/50 L 12/09/18 23:36 71 12/09/18 23:35 72 Laboratory Results 12/10/18 12/10/18 12/10/18 Range/Units 07:32 07:32 06:45 WBC 17.99 H (4.8-10.8) K/uL RBC 4.60 (4.2-5.4) M/uL Hgb 13.6 (12.0-16.0) g/dL Hct 40.4 (37-47) % MCV 87.8 (80-100) fL MCH 29.6 (25-34) pg MCHC 33.7 (32-36) g/dL RDW Std Deviation 48.7 H (36.4-46.3) fL RDW Coeff of Yasmany 15.3 H (11.5-14.5) % Plt Count 338 (130-400) K/uL MPV 10.1 (7.4-10.4) fL Immature Gran % (Auto) 0.8 % Neut % (Auto) 90.0 % Lymph % (Auto) 6.2 % Marshall % (Auto) 2.8 % Eos % (Auto) 0.1 % Baso % (Auto) 0.1 % Immature Gran # (Auto) 0.15 H (0.00-0.02) K/uL Neut # (Auto) 16.18 H (1.4-6.5) K/uL Lymph # (Auto) 1.12 L (1.2-3.4) K/uL Marshall # (Auto) 0.51 (0.11-0.59) K/uL Eos # (Auto) 0.01 (0-0.5) K/uL Baso # (Auto) 0.02 (0-0.2) K/uL Echinocytes 1+ PT (9.0-12.0) Seconds INR (0.9-1.1) APTT (21.0-31.0) Seconds PTT Ratio Sodium 146 H (136-145) mmol/L Potassium 3.1 L D (3.5-5.1) mmol/L Chloride 111 H (98-107) mmol/L Carbon Dioxide 28 (21-32) mmol/L Anion Gap 7.0 (3-11) BUN 42 H (7-18) mg/dl Creatinine 1.07 (0.6-1.2) mg/dl Est Cr Clr Drug Dosing 22.5 ml/min Est GFR ( Amer) 55.6 Est GFR (Non-Af Amer) 48.0 BUN/Creatinine Ratio 39.3 H (10-20) Glucose 144 H (70-99) mg/dl Calcium 8.1 L (8.5-10.1) mg/dl Magnesium (1.8-2.4) mg/dl Total Bilirubin 0.3 (0.2-1) mg/dl Direct Bilirubin < 0.1 (0-0.2) mg/dl AST 29 (15-37) U/L ALT 27 (12-78) U/L Alkaline Phosphatase 144 H (45-117) U/L Total Protein 4.9 L D (6.4-8.2) gm/dl Albumin 1.5 L (3.4-5.0) gm/dl Globulin 3.4 (2.5-4.0) gm/dl Albumin/Globulin Ratio 0.4 L (0.9-2) Lipase (73-393) U/L Urine Color [place] Urine Appearance Clear (Clear) Urine pH 5.0 (4.5-7.5) Ur Specific [place] 1.036 H (1.000-1.030) Urine Protein Trace H (Negative) Urine Glucose (UA) Negative (Negative) Urine Ketones 1+ H (Negative) Urine Blood Negative (Negative) Urine Nitrite Negative (Negative) Urine Bilirubin Negative (Negative) Urine Urobilinogen Negative (Negative) Ur Leukocyte Esterase Negative (Negative) Urine WBC (Auto) 10-30 H (0-5) /hpf Urine RBC (Auto) 5-10 H (0-4) /hpf U Hyaline Cast (Auto) 5-10 H (0-5) /lpf U Epithel Cells (Auto) >30 H (0-5) /lpf Urine Bacteria (Auto) Negative (Negative) Ur Renal Epithelial Cell Not Reportable Other Casts Mixed Cell Cast A (0) /lpf Stl C. diff Tox B Gene (Neg) Stl C. diff [id number]-NAP1-[id number] Stool Ova & Parasites Stool O & P Source Parasite Trichrome Stool Comments C. difficile Tox B Gene 12/09/18 12/09/18 12/09/18 Range/Units 15:26 15:26 15:26 WBC 18.90 H (4.8-10.8) K/uL RBC 5.13 (4.2-5.4) M/uL Hgb 15.8 (12.0-16.0) g/dL Hct 45.1 (37-47) % MCV 87.9 (80-100) fL MCH 30.8 (25-34) pg MCHC 35.0 (32-36) g/dL RDW Std Deviation 48.4 H (36.4-46.3) fL RDW Coeff of Yasmany 15.1 H (11.5-14.5) % Plt Count 451 H (130-400) K/uL MPV 10.4 (7.4-10.4) fL Immature Gran % (Auto) 0.5 % Neut % (Auto) 87.0 % Lymph % (Auto) 8.4 % Marshall % (Auto) 3.8 % Eos % (Auto) 0.1 % Baso % (Auto) 0.2 % Immature Gran # (Auto) 0.09 H (0.00-0.02) K/uL Neut # (Auto) 16.45 H (1.4-6.5) K/uL Lymph # (Auto) 1.59 (1.2-3.4) K/uL Marshall # (Auto) 0.71 H (0.11-0.59) K/uL Eos # (Auto) 0.02 (0-0.5) K/uL Baso # (Auto) 0.04 (0-0.2) K/uL Echinocytes PT 11.5 (9.0-12.0) Seconds INR 1.1 (0.9-1.1) APTT 25.3 (21.0-31.0) Seconds PTT Ratio 0.9 Sodium 143 (136-145) mmol/L Potassium 2.6 L (3.5-5.1) mmol/L Chloride 102 (98-107) mmol/L Carbon Dioxide 27 (21-32) mmol/L Anion Gap 13.0 H (3-11) BUN 51 H (7-18) mg/dl Creatinine 1.34 H (0.6-1.2) mg/dl Est Cr Clr Drug Dosing 17.6 ml/min Est GFR ( Amer) 42.4 Est GFR (Non-Af Amer) 36.5 BUN/Creatinine Ratio 38.0 H (10-20) Glucose 89 (70-99) mg/dl Calcium 8.3 L (8.5-10.1) mg/dl Magnesium 2.4 (1.8-2.4) mg/dl Total Bilirubin 0.4 (0.2-1) mg/dl Direct Bilirubin (0-0.2) mg/dl AST 35 (15-37) U/L ALT 30 (12-78) U/L Alkaline Phosphatase 190 H (45-117) U/L Total Protein 5.9 L (6.4-8.2) gm/dl Albumin 1.8 L (3.4-5.0) gm/dl Globulin 4.1 H (2.5-4.0) gm/dl Albumin/Globulin Ratio 0.4 L (0.9-2) Lipase 155 (73-393) U/L Urine Color Urine Appearance (Clear) Urine pH (4.5-7.5) Ur Specific [place] (1.000-1.030) Urine Protein (Negative) Urine Glucose (UA) (Negative) Urine Ketones (Negative) Urine Blood (Negative) Urine Nitrite (Negative) Urine Bilirubin (Negative) Urine Urobilinogen (Negative) Ur Leukocyte Esterase (Negative) Urine WBC (Auto) (0-5) /hpf Urine RBC (Auto) (0-4) /hpf U Hyaline Cast (Auto) (0-5) /lpf U Epithel Cells (Auto) (0-5) /lpf Urine Bacteria (Auto) (Negative) Ur Renal Epithelial Cell Other Casts (0) /lpf Stl C. diff Tox B Gene (Neg) Stl C. diff [id number]-[id number] Stool Ova & Parasites Stool O & P Source Parasite Trichrome Stool Comments C. difficile Tox B Gene 12/09/18 12/09/18 12/09/18 Range/Units 14:51 14:51 14:51 WBC (4.8-10.8) K/uL RBC (4.2-5.4) M/uL Hgb (12.0-16.0) g/dL Hct (37-47) % MCV (80-100) fL MCH (25-34) pg MCHC (32-36) g/dL RDW Std Deviation (36.4-46.3) fL RDW Coeff of Yasmany (11.5-14.5) % Plt Count (130-400) K/uL MPV (7.4-10.4) fL Immature Gran % (Auto) % Neut % (Auto) % Lymph % (Auto) % Marshall % (Auto) % Eos % (Auto) % Baso % (Auto) % Immature Gran # (Auto) (0.00-0.02) K/uL Neut # (Auto) (1.4-6.5) K/uL Lymph # (Auto) (1.2-3.4) K/uL Marshall # (Auto) (0.11-0.59) K/uL Eos # (Auto) (0-0.5) K/uL Baso # (Auto) (0-0.2) K/uL Echinocytes PT (9.0-12.0) Seconds INR (0.9-1.1) APTT (21.0-31.0) Seconds PTT Ratio Sodium (136-145) mmol/L Potassium (3.5-5.1) mmol/L Chloride (98-107) mmol/L Carbon Dioxide (21-32) mmol/L Anion Gap (3-11) BUN (7-18) mg/dl Creatinine (0.6-1.2) mg/dl Est Cr Clr Drug Dosing ml/min Est GFR ( Amer) Est GFR (Non-Af Amer) BUN/Creatinine Ratio (10-20) Glucose (70-99) mg/dl Calcium (8.5-10.1) mg/dl Magnesium (1.8-2.4) mg/dl Total Bilirubin (0.2-1) mg/dl Direct Bilirubin (0-0.2) mg/dl AST (15-37) U/L ALT (12-78) U/L Alkaline Phosphatase (45-117) U/L Total Protein (6.4-8.2) gm/dl Albumin (3.4-5.0) gm/dl Globulin (2.5-4.0) gm/dl Albumin/Globulin Ratio (0.9-2) Lipase (73-393) U/L Urine Color Urine Appearance (Clear) Urine pH (4.5-7.5) Ur Specific [place] (1.000-1.030) Urine Protein (Negative) Urine Glucose (UA) (Negative) Urine Ketones (Negative) Urine Blood (Negative) Urine Nitrite (Negative) Urine Bilirubin (Negative) Urine Urobilinogen (Negative) Ur Leukocyte Esterase (Negative) Urine WBC (Auto) (0-5) /hpf Urine RBC (Auto) (0-4) /hpf U Hyaline Cast (Auto) (0-5) /lpf U Epithel Cells (Auto) (0-5) /lpf Urine Bacteria (Auto) (Negative) Ur Renal Epithelial Cell Other Casts (0) /lpf Stl C. diff Tox B Gene Negative Cdiff Gene (Neg) Stl C. diff [id number] Cancelled Stool Ova & Parasites Pending Stool O & P Source Pending Parasite Trichrome Pending Stool Comments Pending C. difficile Tox B Gene Cancelled (1) Ulcerative colitis Digestive disease complication type: with rectal bleeding Ulcerative colitis location: unspecified ulcerative colitis location Qualified Code(s): K51.911 - Ulcerative colitis, unspecified with rectal bleeding
--- NOTE | 2018-12-10 14:41 | Consultation Report ---
DATE OF CONSULTATION: 12/10/2018 CHIEF COMPLAINT: Dehydration and acute weight loss. HISTORY OF PRESENT ILLNESS: The patient is an 83-year-old 3, para 1, general health is complicated by skilled nursing colitis which was usually manifested by frequent loose bowel movements associated with blood in her stool. She also has a history of having been diagnosed in the the right ovarian cyst. She elected not to have it removed. Her present admission stemmed for an ER visit which diagnosed severe dehydration. The patient speaks no Solomon Islander. All of the history was obtained from her daughter and granddaughter. ALLERGIES: No known drug allergies. PAST SURGICAL HISTORY: No previous surgery. PAST MEDICAL HISTORY: No history of rheumatic fever, heart disease. One child in good health. FAMILY HISTORY: Mom at age 73, congestive heart failure. Father at age 74, chronic obstructive pulmonary disease. She had 1 sister who at age 85 of old age. SOCIAL HISTORY: No smoking. No alcohol intake. 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 REVIEW OF SYSTEMS: No symptoms of frequent or severe headaches, ear infections, nosebleed, sore throats. PHYSICAL EXAMINATION: GENERAL: An 83-year-old female. Orientation is difficult to ascertain because of the language barrier. The patient appears somewhat dehydrated. HEART: Had regular rhythm. LUNGS: Clear to auscultation and percussion. ABDOMEN: Soft and nontender. No palpable masses. Bowel sounds were hypoactive. MUSCULOSKELETAL: Revealed no calf tenderness. DIAGNOSTIC DATA: I reviewed the CAT scan, which she obtained on admission that showed few small calcified fibroids and what appeared a dermoid cyst of the right ovary with the fluid fat level in it as large as 11 cm in several directions. IMPRESSIONS OF THIS CASE: Right-sided dermoid, fibroids, colitis, dehydration.
[2018-12-10] MEDS ORDERED: TRAMADOL HCL 50 MG TABLET PO PRN (15:45)
--- NOTE | 2018-12-10 15:45 | Hospitalist Progress Note ---
Date of Service December 10, 2018 Assessment & Plan (1) Pancolitis: History of ulcerative colitis, managed with homeopathic medications at home. Patient has a history of repeated flares and this is consistent with 1 of those. Significant diarrhea at home and worsening pain uncontrolled with ov [id number] ibuprofen. She is been improved with morphine, however is very lethargic. I explained to the family who are her main caretakers that dependence on this for pain control will lead to constipation and lethargy which will obscure the clinical improvement. We also discussed the high risk of delirium given the morphine use and her age. We discussed the fact that she should be awake as much as possible during the day and asleep at night to reduce the risk of delirium. We discussed we will transition to scheduled IV Tylenol with tramadol for pain and use morphine for severe pain if this is unsuccessful. Inflammatory markers are pending. Ideally we would like a diagnosis, however, at this time she is declining a colonoscopy. We will give a trial of clear liquids. Stool studies are ordered including a stool culture and ova and parasites. Stool white blood cells ordered. Will stop antibiotics as this appears more inflammatory. Blood cultures are pending. Appreciate GIs input. (2) Rectal bleeding: Hematochezia has not led to significant drop in H&H, and this appears to have resolved. Continue to monitor. (3) Hypokalemia: Secondary to profuse diarrhea in recent weeks. She is improving with supplemental replacement. Diarrhea appears to have resolved, especially in setting of morphine use. We will continue to check this daily. (4) Adnexal mass: She has lost approximately half her body weight over the last 6 months. She was seen to have a dermoid cyst that is 11 cm in diameter on CT imaging in the ER yesterday. Per gynecology we will not pursue any surgical intervention at this time given her age and comorbidities. This was explained to the family were understanding of this. (5) Choledocholithiasis: She has evidence of choledocholithiasis on CT imaging, however, she is exhibiting no Jiménez sign or other evidence of acute cholecystitis. Cont watchful waiting for now. LFTs are normal, will recheck if clincal picture changes or leukocytosis doesn't improve. (6) Tachycardia: Pt with reported episode tachycardia in ER with rates up to 170's Current sinus rhythm, monitored on telemetry and overnight review reveals sinus rhythm in the 50s and 60s. (7) DVT prophylaxis: SCDs/ambulation in setting of hematochezia. Full Code Dispo-cont hopsitalization, for now cont telemetry. Will likely move to med/surg in am. Bina Spencer DO [facility] Hospitalist Subjective 83-year-old female with a reported history of ulcerative colitis who spent majority of her life and [place] and has recently come to [facility] in the last 10 to 15 years. She reportedly gets UC flares which is she manages with homeopathic and natural medications. However, in recent weeks her diarrhea has become profuse and her pain to severe to manage with ibuprofen at home. She also reports hematochezia. Translation is occurring through granddaughter and her daughter who are at bedside. Review of systems is also positive for significant weight loss in the last 6 months of approximately 60 pounds. She has a known dermoid lesion that is tender 11 cm in diameter seen on CT imaging last night. She was evaluated by ENVIRONMENTAL MAINTENANCE WORKER today with recommendations for conservative management only. It is unlikely that a chemical peritonitis is present as she has a soft nontender abdomen today. I discussed current data with the family and the plan. For now she has used morphine as her pain crutch, and side effects were reviewed with her family. We agreed on scheduled Tylenol punctuated with tramadl as needed for pain. She is currently less responsive although is able to follow commands. She has been able to ambulate to the bathroom with assistance from family, but was straight cathed earlier today and hasn't urinated since that time (approx 8 hours). I discussed with the family the dangers of urinary retention and how we find it and treat it. I encouraged them to help her wean off the morphine to allow her to become more awake and in tune with her body. They agreed to try to take her to the bathroom again within the hour. They also understand the importance of tracking her urinary and stool outputs and all this information was relayed to the nurse. They are in agreement with the inflammatory markers to be drawn, which was ordered. After discussion with GI, will start her on a trial of clear liquids. To date, she is declining a colonoscopy but we will take this one day at a time. Will cont antibiotics for now, although history doesn't support infection with the length of time this has been going on. I was not able to ascertain travel history at this time. Ova & Parasites are pending. Diarrhea has stopped today. No other concerns from a patient or family standpoint at this time after everything was thoroughly reviewed with them. Review of Systems Review of Systems: Other Through translation with her daughter (refuses ophthalmic medical assistant) she has no pain and no other issues at this time. Physical Exam Physical Exam: CONSTITUTIONAL: frail, cachectic, vitals as above, generally well-appearing EYES: eyes closed RESPIRATORY: clear to auscultation bilaterally with minor crackles at the right base. CARDIOVASCULAR: regular rate and rhythm, S1 and 2 heard without murmurs, gallops or rubs, no JVD, no peripheral edema GASTROINTESTINAL: normal bowel sounds, soft, nontender, nondistended, no guarding MUSCULOSKELETAL: generalized weakness, can move her arms and legs equally, requires assistance to sit up in bed. SKIN: warm and dry NEUROLOGIC: difficult to assess as she is lethargic and fatigued PSYCHIATRIC: easily follows instruction as given, not speaking much only some mumbles. Appears to be responding appropriately and granting permission for exam. Results & Data Vital Signs (Past 12 Hours) Vital Signs Temp Pulse Resp BP Pulse Ox 12/10/18 11:17 36.3 C L 62 18 148/68 H 99 12/10/18 07:24 36.3 C L 16 145/80 H 99 Laboratory Results Short CBC 12/10/18 Range/Units 07:32 WBC 17.99 H (4.8-10.8) K/uL Hgb 13.6 (12.0-16.0) g/dL Hct 40.4 (37-47) % Plt Count 338 (130-400) K/uL BMP 12/09/18 12/10/18 15:26 07:32 Sodium 143 146 H Potassium 2.6 L 3.1 L D Chloride 102 111 H Carbon Dioxide 27 28 BUN 51 H 42 H Creatinine 1.34 H 1.07 Glucose 89 144 H Calcium 8.3 L 8.1 L Liver Function 12/09/18 12/10/18 Range/Units 15:26 07:32 Total Bilirubin 0.4 0.3 (0.2-1) mg/dl Direct Bilirubin < 0.1 (0-0.2) mg/dl AST 35 29 (15-37) U/L ALT 30 27 (12-78) U/L Alkaline Phosphatase 190 H 144 H (45-117) U/L Albumin 1.8 L 1.5 L (3.4-5.0) gm/dl Urine 12/10/18 Range/Units 06:45 Urine Color [place] Urine Appearance Clear (Clear) Urine pH 5.0 (4.5-7.5) Ur Specific [place] 1.036 H (1.000-1.030) Urine Protein Trace H (Negative) Urine Glucose (UA) Negative (Negative) Medications Administered Current Inpatient Medications Potassium Chloride/Dextrose/Sod Cl (D5w And 1/2nss + 40meq Kcl) 40 meq in 1,000 mls @ 125 mls/hr IV .Q8H CHARI Stop: 01/09/19 03:29 Last Admin: 12/10/18 11:54 Dose: 125 mls/hr Documented by: Piperacillin Sod/Tazobactam (Sod 3.375 gm/ Dextrose) 115 mls @ 28.75 mls/hr IV Q8H CHARI; Protocol Stop: 12/20/18 03:59 Last Admin: 12/10/18 13:14 Dose: 28.8 mls/hr Documented by: Lorazepam (Ativan) 0.5 mg PO HS PRN PRN Reason: Insomnia Stop: 01/08/19 21:59 Last Admin: 12/09/18 22:56 Dose: 0.5 mg Documented by: Miscellaneous Information (Consult) 1 ea N/A UD PRN PRN Reason: Consult Stop: 01/08/19 18:10 Morphine Sulfate (Morphine Sulfate) 2 mg IV Q2H PRN PRN Reason: Severe Pain Stop: 12/23/18 21:57 Last Admin: 12/10/18 14:00 Dose: 2 mg Documented by: Potassium Chloride (Klor-Con M20) 40 meq PO Q6H CHARI Stop: 12/10/18 15:46 Last Admin: 12/10/18 15:40 Dose: 40 meq Documented by:
[2018-12-10] MEDS ORDERED: MoRPHine SULFATE 2 MG/ML CARP IV PRN (15:46)
[2018-12-10] MEDS: ACETAMINOPHEN 1,000 MG/100 ML VIAL IV SCH ×2 (16:15→23:04)
[2018-12-11 06:21] LABS: Hematocrit (blood only) 41.1 % (37-47); Mean Corpuscular Hgb Conc 34.1 g/dL (32-36); Mean Corpuscular Volume 87.3 fL (80-100); Platelet Count 332 K/uL (130-400); RDW Coefficient of Variation 15.3 % (11.5-14.5); RDW Standard Deviation 49.2 fL (36.4-46.3); Red Blood Count 4.71 M/uL (4.2-5.4); White Blood Count 24.16 K/uL (4.8-10.8)
[2018-12-11 07:01] LABS: BUN Creatinine Ratio 35.3 (10-20); C Reactive Protein 10.5 mg/dl (0-0.29); Calcium 8.5 mg/dl (8.5-10.1); Creatinine Clr Calc Pharmacy 17.8 ml/min; Est GFR (Non-African American) 36.2; Magnesium 2.2 mg/dl (1.8-2.4); Phosphorus 2.1 mg/dl (2.5-4.9); Potassium 4.6 mmol/L (3.5-5.1)
[2018-12-11] MEDS: ACETAMINOPHEN 1,000 MG/100 ML VIAL IV SCH ×3 (08:11→23:30)
--- NOTE | 2018-12-11 08:37 | Gastroenterology Progress Note ---
Date of Service December 11, 2018 Assessment & Plan (1) Pancolitis: 83 year old american speaking female refusing translation services with history of UC diagnosed years ago, not on daily therapy who presented though the ED with abdominal pain, rectal bleeding and about a [address] torres ggestive of pancolitis, c.diff negative but culture pending. 11 x 8.7 cm right adnexal mass, gallstones w/ concern for biliary stone as well. She is afebrile but evidence of leukocytosis, H&H stable. Leukocytosis - Worsening - Would recommend to start Cipro/Flagyl - Blood cultures Gallstones/CBD stone - I did discuss this with family and pt - Family tells me "this is not her problem right now" - I would recommend LFT trending - MRCP for better evaluation Pancolitis, history of UC - C.diff negative - Await stool culture - Inflammatory markers elevated - Can consider steroid therapy, flex-sig pending evaluation of leukocytosis, results of stools - Antiemetic PRN - Analgesia PRN - Clear liquids Present on Admission?: Yes Subjective Pt was seen and evaluated, chart reviewed No family at bedside Refusing translation Was asleep but awoke easily to name There is documentation of a brown, loose stool this AM No fever, chills, CP, SOB Review of Systems Review of Systems: Unable to obtain as no family at [facility], refusing translation service Physical Exam Constitutional: + ill appearing and + thin; no acute distress Neck: trachea midline Respiratory: normal respiratory effort, lungs clear to auscultation Cardiovascular: Rate/Rhythm: regular rate and regular rhythm Gastrointestinal (Abdomen): Percussion/Palpation: + abdomen tender and abdomen soft; no guarding, abdomen not rigid and no abdominal mass Skin: no rashes, warm and dry Results & Data Vital Signs (Past 12 Hours) Vital Signs Temp Pulse Resp BP BP Pulse Ox 12/11/18 06:52 36.6 C 83 16 125/72 96 12/11/18 03:34 36.6 C 102 H 24 137/86 94 Laboratory Results 12/11/18 12/11/18 12/11/18 Range/Units 05:41 05:41 05:41 WBC 24.16 H (4.8-10.8) K/uL RBC 4.71 (4.2-5.4) M/uL Hgb 14.0 (12.0-16.0) g/dL Hct 41.1 (37-47) % MCV 87.3 (80-100) fL MCH 29.7 (25-34) pg MCHC 34.1 (32-36) g/dL RDW Std Deviation 49.2 H (36.4-46.3) fL RDW Coeff of Yasmany 15.3 H (11.5-14.5) % Plt Count 332 (130-400) K/uL MPV 10.0 (7.4-10.4) fL ESR 5 (0-21) mm/hr Sodium 147 H (136-145) mmol/L Potassium 4.6 D (3.5-5.1) mmol/L Chloride 117 H (98-107) mmol/L Carbon Dioxide 27 (21-32) mmol/L Anion Gap 3.0 (3-11) BUN 48 H (7-18) mg/dl Creatinine 1.35 H (0.6-1.2) mg/dl Est Cr Clr Drug Dosing 17.8 ml/min Est GFR ( Amer) 42.0 Est GFR (Non-Af Amer) 36.2 BUN/Creatinine Ratio 35.3 H (10-20) Glucose 100 H (70-99) mg/dl Calcium 8.5 (8.5-10.1) mg/dl Phosphorus 2.1 L (2.5-4.9) mg/dl Magnesium 2.2 (1.8-2.4) mg/dl C-Reactive Protein 10.50 H (0-0.29) mg/dl 12/10/18 12/10/18 Range/Units 07:32 07:32 WBC (4.8-10.8) K/uL RBC (4.2-5.4) M/uL Hgb (12.0-16.0) g/dL Hct (37-47) % MCV (80-100) fL MCH (25-34) pg MCHC (32-36) g/dL RDW Std Deviation (36.4-46.3) fL RDW Coeff of Yasmany (11.5-14.5) % Plt Count (130-400) K/uL MPV (7.4-10.4) fL ESR 4 (0-21) mm/hr Sodium (136-145) mmol/L Potassium (3.5-5.1) mmol/L Chloride (98-107) mmol/L Carbon Dioxide (21-32) mmol/L Anion Gap (3-11) BUN (7-18) mg/dl Creatinine (0.6-1.2) mg/dl Est Cr Clr Drug Dosing ml/min Est GFR ( Amer) Est GFR (Non-Af Amer) BUN/Creatinine Ratio (10-20) Glucose (70-99) mg/dl Calcium (8.5-10.1) mg/dl Phosphorus (2.5-4.9) mg/dl Magnesium (1.8-2.4) mg/dl C-Reactive Protein 7.17 H (0-0.29) mg/dl
[2018-12-11] MEDS: D5W AND 1/2NSS 1,000 ML IV SCH ×2 (09:49→19:48)
[2018-12-11] MEDS ORDERED: CIPROFLOXACIN CONSULT ACTIVE SCH (09:58)
[2018-12-11 10:32] LABS: Albumin Level 1.5 gm/dl (3.4-5.0); Bilirubin Direct 0.1 mg/dl (0-0.2); Bilirubin,Total 0.3 mg/dl (0.2-1)
[2018-12-11] MEDS: CIPROFLOXACIN 400 MG/200 ML BAG IV SCH (11:23)
[2018-12-11] MEDS: metroNIDAZOLE 500 MG/100 ML BAG IV SCH ×2 (11:23→18:05)
--- NOTE | 2018-12-11 12:39 | Nephrology Consultation ---
Date of Consultation December 11, 2018 Assessment & Plan (1) Renal insufficiency: unclear baseline > started at 1.3, then to 1.1 w/ ivf, today up to 1.4 likely d/t IV contrast exposure, dehydration. ua w/ mixed cell casts, ketones, very dry. unremarkable kidneys on imaging. some nsaid use prior to admission -cont d51/2 NS at 125 ml/hr -strict I/0 -recheck bmp in am Present on Admission?: Yes (2) Hypokalemia: improved w/ therapy -recheck in am Present on Admission?: Yes (3) Hypernatremia: getting D5 1/2 NS at 125 mL/hr > more hyperchloremia today and sNa a bit higher as well; some of this may be volume contraction after IV contrast exposure -current IVF are appropriate, give less Cl than normosol; continue same at current rate Present on Admission?: Yes History of Present Illness Reason for Consultation: poor renal function and UOP w/ unknown baseline Requesting Physician: Dr Spencer Attending Physician: Bina Spencer, DO History of Present Illness 83 y/o Niuean speaking F whom I'm asked to see for poor UOP and renal function after she was admitted here on 12/09 w/ rectal bleeding and pancolitis after she presented w/ 50 lb wt loss, rectal bleeding and abdominal pain. PMH includes reported ulcerative colitis w/ no medications or f/u x 20 years, adnexal mass. Found to have pancolitis on CT w/ R 11 cm adnexal mass, CBD stone. GI following; awaiting stool and inflammatory studies; MRCP, colonoscopy also recommended, though pt has repeatedly refused the latter in the past. her creatinine was 1.3 on presentation, dropped to 1.1 yesterday, back to 1.4 today. She had IV contrast on 12/09. her albumin is 1.5. some low K and higher Na. CRP is 11; WBC is 24 K. UA very concentrated w/ mixed cell casts, 1+ ketones, trace protein, mixed cell cast. Her daughter reports they had been using ibuprofen 1-2 pills daily for a week prior to admission to help manage pain. Daughter also reports pt told her she had green (sic) urine intermittently in the 2 mos before admission. Allergies Allergy/AdvReac Type Severity Reaction Status Date / Time No Known Allergies Allergy Unverified 12/09/18 15:04 Home Medications Home Medications Medication Instructions Recorded Confirmed Type ibuprofen 800 mg PO TID PRN 12/09/18 12/09/18 History Patient History Medical History Colitis (Chronic) Ulcerative colitis (Chronic) Surgical History H/O colonoscopy (Chronic) Reported in in [place] Social History Preferred Language: Niuean Communication Ability: Speaks Petey Line Director Required: No Beliefs That Will Affect Care: None Current Living Situation: Family Current Living Situation Comment: Lives with her daughter and her daughters - Madeline Other Information That Helps Us Care for You: No Feels Safe at Home: Yes Safety Concerns: Feels Safe At This Time Smoking Status: Never smoker Hx Alcohol Use: No Hx Substance Use: No Review of Systems Review of Systems: Unobtainable due to cognitive status Physical Exam Constitutional: well developed and + cachectic on RA Eyes: EOM intact bilaterally ENMT: Ears: no external ear abnormality Nose: no external nose abnormality Mouth: + dry oral mucous membranes Neck: no nuchal rigidity Respiratory: normal respiratory effort Auscultation: + diminished lung sounds Cardiovascular: Rate/Rhythm: regular rate and regular rhythm Extremities: no edema Gastrointestinal (Abdomen): Inspection/Auscultation: normal bowel sounds Percussion/Palpation: abdomen soft; abdomen nontender Musculoskeletal: Extremities: strength 5/5 throughout Skin: no rashes, warm and dry Neurologic: mi, almost no speech, no tremor Psychiatric: rests eyes closed w/o much interaction Results & Data Vital Signs (Past 12 Hours) Vital Signs Temp Pulse Resp BP BP Pulse Ox 12/11/18 10:59 36.1 C L 90 18 162/93 H 97 12/11/18 06:52 36.6 C 83 16 125/72 96 12/11/18 03:34 36.6 C 102 H 24 137/86 94 Laboratory Results Abnormal lab results 12/10/18 12/11/18 12/11/18 Range/Units 07:32 05:41 05:41 WBC 24.16 H (4.8-10.8) K/uL RDW Std Deviation 49.2 H (36.4-46.3) fL RDW Coeff of Yasmany 15.3 H (11.5-14.5) % Sodium 147 H (136-145) mmol/L Chloride 117 H (98-107) mmol/L BUN 48 H (7-18) mg/dl Creatinine 1.35 H (0.6-1.2) mg/dl BUN/Creatinine Ratio 35.3 H (10-20) Glucose 100 H (70-99) mg/dl Phosphorus 2.1 L (2.5-4.9) mg/dl Alkaline Phosphatase (45-117) U/L C-Reactive Protein 7.17 H 10.50 H (0-0.29) mg/dl Total Protein (6.4-8.2) gm/dl Albumin (3.4-5.0) gm/dl 12/11/18 Range/Units 05:41 WBC (4.8-10.8) K/uL RDW Std Deviation (36.4-46.3) fL RDW Coeff of Yasmany (11.5-14.5) % Sodium (136-145) mmol/L Chloride (98-107) mmol/L BUN (7-18) mg/dl Creatinine (0.6-1.2) mg/dl BUN/Creatinine Ratio (10-20) Glucose (70-99) mg/dl Phosphorus (2.5-4.9) mg/dl Alkaline Phosphatase 156 H (45-117) U/L C-Reactive Protein (0-0.29) mg/dl Total Protein 5.0 L (6.4-8.2) gm/dl Albumin 1.5 L (3.4-5.0) gm/dl Diagnostic Findings ct abd pelvis w/ conFINDINGS: Lung bases are unremarkable. The liver, spleen, adrenal glands and pancreas are unremarkable. There is no pancreatic ductal dilatation. There is mild dilatation of the common bile duct. There are tiny densities within the distal common bile duct which favor tiny stones. There are gallstones within the gallbladder. The gallbladder is not distended. Note is m jeffry of a 2.2 cm focus of fat within the right upper quadrant, adjacent to the gallbladder fundus. This is intraperitoneal location. Moderate wall thickening of the colon and rectum is noted. There is no free air or abscess. No pneumatosis or portal venous gas is present. Sensitivity for detection mucosal lesions is diminished given CT technique. The appendix is not visualized. A few uterine fibroids are noted, one of which is partially calcified. Note is made of an 11 x 8.7 cm fat-containing right adnexal mass which contains a fat/fluid level and a 4.3 cm central density suggestive of a [place] nodule. There is no lymphadenopathy. Mild diffuse mesenteric infiltration is noted. There is no abscess. No suspicious osseous lesion is present. IMPRESSION: 1. 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 2.2 cm focus of fat within the right upper quadrant suggests minimal spontaneous rupture of the dermoid. Mild diffuse mesenteric infiltration is nonspecific and a chemical peritonitis cannot be excluded. Gynecologic consultation is recommended. Findings discussed with Dr. Cruz at time of dictation. 2. Moderate wall thickening of the colon and rectum which represents a nonspecific pancolitis. No abscess or free air. 3. Cholelithiasis. 4. Suspected small common bile duct calculi with mild dilatation of the common bile duct.
--- NOTE | 2018-12-11 18:06 | Hospitalist Progress Note ---
Date of Service December 11, 2018 Assessment & Plan (1) Pancolitis: Worsened clinically with elevated white blood cell count to 24 from 18 yesterday. C. difficile is negative. Trend inflammatory markers which are increased today. Awaiting stool culture to rule out infection. Restart antibiotics including Cipro and Flagyl. 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 Consulting nephrology for low urine output overnight. Patient is very dry on examination. IV fluids were stopped yesterday secondary to crackles heard on exam of the base of the lungs. IV fluids were restarted with D5 half-normal today. Nephrology agrees with this plan. Continue to monitor with Joshi in place, strict I's and O's. (3) Renal insufficiency: Uncertain baseline as no prior records. Appreciate nephrology input. (4) Hypokalemia: Secondary to profuse diarrhea in recent weeks. Resolved after replacement. (5) Adnexal mass: She has lost approximately half her body weight over the last 6 months. She was seen to have a dermoid cyst that is 11 cm in diameter on CT imaging in the ER yesterday. Per gynecology we will not pursue any surgical intervention at this time given her age and comorbidities. This was explained to the family were understanding of this. (6) Choledocholithiasis: She has evidence of choledocholithiasis on CT imaging, however, she is exhibiting no Jiménez sign or other evidence of acute cholecystitis. Cont watchful waiting for now. LFTs are normal, will recheck if clinical picture changes or leukocytosis doesn't improve. (7) Tachycardia: Pt with reported episode tachycardia in ER with rates up to 170's Current sinus rhythm, monitored on telemetry and overnight review reveals sinus rhythm with a normal rate overnight. No further work-up needed. Continue to monitor on telemetry for now until she is clinically improving. (8) DVT prophylaxis: SCDs/ambulation in setting of hematochezia. Full Code Dispo-cont hospitalization, for now cont telemetry. Bina Spencer DO [facility] Hospitalist Subjective 83-year-old female admitted for increased abdominal pain and rectal bleeding with diarrhea at home. Reported history of ulcerative colitis off medication. She has worsened clinically today, moaning and acting confused. She has been delirious overnight with an episode of owning and has been on morphine overnight for pain. White count is elevated to 24,000 this morning and inflammatory markers are worsening. She had a bowel movement overnight that was described as explosive diarrhea and a stool sample could not be collected. She is currently moaning in pain and holding her abdomen with scant amounts of diarrhea and blood per rectum.\ Spent approximately 20 minutes again describing the clinical plan with daughter outside the room. She verbalized understanding. Review of Systems Review of Systems: Unobtainable due to cognitive status (Unobtainable secondary to confusion, patient speaks Mauritian and refuses medical records manager but is using daughter. Daughter states patient is confused.) Physical Exam Physical Exam: CONSTITUTIONAL: frail, cachectic, vitals as above, generally well-appearing EYES: eyes closed RESPIRATORY: Could not examine as patient was writhing in pain CARDIOVASCULAR: Could not easily examine as patient was in pain GASTROINTESTINAL: Soft, nondistended guarding present. MUSCULOSKELETAL: generalized weakness, can move her arms and legs equally, requires assistance to sit up in bed. SKIN: warm and dry NEUROLOGIC: difficult to assess as she is Confused and in pain PSYCHIATRIC: Confused Results & Data Vital Signs (Past 12 Hours) Vital Signs Temp Pulse Resp BP BP Pulse Ox 12/11/18 14:39 36.5 C 83 16 129/77 12/11/18 10:59 36.1 C L 90 18 162/93 H 97 12/11/18 06:52 36.6 C 83 16 125/72 96 Laboratory Results Short CBC 12/11/18 Range/Units 05:41 WBC 24.16 H (4.8-10.8) K/uL Hgb 14.0 (12.0-16.0) g/dL Hct 41.1 (37-47) % Plt Count 332 (130-400) K/uL BMP 12/11/18 05:41 Sodium 147 H Potassium 4.6 D Chloride 117 H Carbon Dioxide 27 BUN 48 H Creatinine 1.35 H Glucose 100 H Calcium 8.5 Liver Function 12/11/18 Range/Units 05:41 Total Bilirubin 0.3 (0.2-1) mg/dl Direct Bilirubin 0.1 (0-0.2) mg/dl AST 33 (15-37) U/L ALT 33 (12-78) U/L Alkaline Phosphatase 156 H (45-117) U/L Albumin 1.5 L (3.4-5.0) gm/dl Medications Administered Current Inpatient Medications Acetaminophen (Ofirmev) 1,000 mg in 100 mls @ 400 mls/hr IV Q8H CHARI Stop: 01/09/19 15:59 Last Infusion: 12/11/18 17:01 Dose: Infused Documented by: Dextrose/Sodium Chloride (D5w And 1/2nss) 1,000 mls @ 125 mls/hr IV .Q8H CHARI Stop: 12/12/18 01:14 Last Admin: 12/11/18 09:49 Dose: 125 mls/hr Documented by: Ciprofloxacin (Cipro) 400 mg in 200 mls @ 100 mls/hr IV DAILY CHARI; Protocol Stop: 12/21/18 09:59 Last Infusion: 12/11/18 13:29 Dose: Infused Documented by: Metronidazole (Flagyl) 500 mg in 100 mls @ 100 mls/hr IV Q8H CHARI; Protocol Stop: 12/21/18 09:59 Last Infusion: 12/11/18 12:27 Dose: Infused Documented by: Lorazepam (Ativan) 0.5 mg PO HS PRN PRN Reason: Insomnia Stop: 01/08/19 21:59 Last Admin: 12/09/18 22:56 Dose: 0.5 mg Documented by: Miscellaneous Information (Ciprofloxacin Consult Active) 1 ea N/A [facility] [place] Stop: 01/10/19 09:57 Tramadol HCl (Ultram) 50 mg PO Q4H PRN PRN Reason: Pain Stop: 01/09/19 15:44 Last Admin: 12/11/18 17:01 Dose: 50 mg Documented by:
[2018-12-12] MEDS: metroNIDAZOLE 500 MG/100 ML BAG IV SCH ×3 (01:16→18:20)
[2018-12-12] MEDS: ACETAMINOPHEN 1,000 MG/100 ML VIAL IV SCH (08:10)
--- NOTE | 2018-12-12 08:48 | Gastroenterology Progress Note ---
Date of Service December 12, 2018 Assessment & Plan (1) Pancolitis: 83 year old algerian speaking female refusing translation services with history of UC diagnosed years ago, not on daily therapy who presented though the ED with abdominal pain, rectal bleeding and about a [address] torres ggestive of pancolitis, c.diff negative but culture pending. 11 x 8.7 cm right adnexal mass, gallstones w/ concern for biliary stone as well. She is afebrile but evidence of leukocytosis, H&H stable. Will arrange, bedside KUB. Continue Cipro/Flagyl, blood cultures negative to date. Will discuss unprepped flex-sig Leukocytosis - Worsening - Would recommend to start Cipro/Flagyl - Blood cultures Gallstones/CBD stone - I did discuss this with family and pt - Family tells me "this is not her problem right now" - I would recommend LFT trending - MRCP for better evaluation Pancolitis, history of UC - C.diff negative - Await stool culture - Inflammatory markers elevated - Can consider steroid therapy, flex-sig pending evaluation of leukocytosis, results of stools - Antiemetic PRN - Analgesia PRN - Clear liquids Supervising Physician Co-Signing Physician Notes I have personally seen and examined the patient with WICHO Baumann. Her note reflects my exam and findings. I agree with her impression and plan. The family ( daughter) has been very resistant to further testing such as KUB and even endoscopy. Today I was able to discuss the need for Flexi sig to look for colitis and possible malignancy not seen on CT. Continue broad spectrum antibiotics. I still think she needs a KUB. Stool should be sent for repeat C. diff as well. Matias Avalos M.D. Subjective Pt was seen and evaluated, chart reviewed. Family at bedside, refusing translation services No AM labs back She notes she slept well Does have abd pain Lower, intermittent, cramping No BM since admission No nausea,vomiting Not hungry Review of Systems Constitutional: + fatigue and + weight loss; no fever and no chills Respiratory: + cough; no dyspnea and no pain on inspiration Cardiovascular: no chest pain, no radiating jaw, neck or arm pain and no dyspnea on exertion Gastrointestinal: as per Subjective / HPI Physical Exam Constitutional: + ill appearing, + thin and + language barrier; + not appropriately hydrated Neck: trachea midline Respiratory: normal respiratory effort; no respiratory distress Cardiovascular: Rate/Rhythm: regular rate and regular rhythm Gastrointestinal (Abdomen): Percussion/Palpation: + abdomen tender and abdomen soft; no guarding, abdomen not rigid and no abdominal mass Skin: no rashes, warm and dry Results & Data Vital Signs (Past 12 Hours) Vital Signs Temp Pulse Resp BP Pulse Ox 12/12/18 07:32 36.7 C 79 17 128/79 96 12/12/18 04:46 36.7 C 75 95 H 115/72 95 12/11/18 23:44 36.6 C 72 16 116/72 96
[2018-12-12] MEDS ORDERED: D5W AND 1/2NSS 1,000 ML IV SCH (09:00)
[2018-12-12 09:37] LABS: Hemoglobin 15.3 g/dL (12.0-16.0); Mean Corpuscular Hgb Conc 34.8 g/dL (32-36); Mean Corpuscular Volume 87.8 fL (80-100); Platelet Count 265 K/uL (130-400); RDW Coefficient of Variation 15.7 % (11.5-14.5); RDW Standard Deviation 49.9 fL (36.4-46.3); Red Blood Count 5.01 M/uL (4.2-5.4); White Blood Count 20.58 K/uL (4.8-10.8)
[2018-12-12 09:54] LABS: BUN Creatinine Ratio 29.8 (10-20); Est GFR (African American) 33.9; Est GFR (Non-African American) 29.3; Potassium 4.1 mmol/L (3.5-5.1)
[2018-12-12] MEDS: CIPROFLOXACIN 400 MG/200 ML BAG IV SCH (09:57)
[2018-12-12 10:05] LABS: Basophils # (auto) 0.03 K/uL (0-0.2); Basophils % (auto) 0.1 %; Dohle Bodies 1+; Echinocytes 2+; Eosinophils % (auto) 0.5 %; Immature Granulocytes # (auto) 0.19 K/uL (0.00-0.02); Immature Granulocytes % (auto) 0.9 %; Lymphocytes # (auto) 1.29 K/uL (1.2-3.4); Lymphocytes % (auto) 6.3 %; Monocytes # (auto) 0.73 K/uL (0.11-0.59); Monocytes % (auto) 3.5 %; Neutrophils # (auto) 18.24 K/uL (1.4-6.5); Neutrophils % (auto) 88.7 %; Toxic Granulation 2+; Toxic Vacuolation 1+
--- NOTE | 2018-12-12 11:09 | Anesthesiology Consultation ---
Date of Service December 12, 2018 Assessment & Plan (1) Encounter for pre-operative examination: History Surgery Operation Date: 12/12/18 08:30 Proposed Procedures p Flexible Sigmoidoscopy Dr Robbie Avalos Height/Weight Height: 4 ft 9 in Weight: 35.8 kg Allergies Allergy/AdvReac Type Severity Reaction Status Date / Time No Known Allergies Allergy Unverified 12/09/18 15:04 Medications Home Medications Medication Instructions Recorded Confirmed Last Taken ibuprofen 800 mg PO TID PRN 12/09/18 12/09/18 12/09/18 03:00 Active Medications Generic Name Dose Route Start Last Admin Trade Name Freq PRN Reason Stop Dose Admin Ciprofloxacin 400 mg in 200 mls @ 100 mls/hr 12/11/18 10:00 12/12/18 09:57 Cipro IV 12/21/18 09:59 100 mls/hr DAILY CHARI Administration Protocol Metronidazole 500 mg in 100 mls @ 100 mls/hr 12/11/18 10:00 12/12/18 11:06 Flagyl IV 12/21/18 09:59 Infused Q8H CHARI Infusion Protocol Dextrose/Sodium Chloride 1,000 mls @ 80 mls/hr 12/12/18 09:00 12/12/18 09:58 D5w And 1/2nss IV 01/11/19 08:59 80 mls/hr .[id number] CHARI Administration Lorazepam 0.5 mg 12/09/18 22:00 12/09/18 22:56 Ativan PO 01/08/19 21:59 0.5 mg HS PRN Administration Insomnia Tramadol HCl 50 mg 12/10/18 15:45 12/11/18 17:01 Ultram PO 01/09/19 15:44 50 mg Q4H PRN Administration Pain Past Medical History Medical History Colitis (Chronic) Ulcerative colitis (Chronic) Past Surgical History Surgical History H/O colonoscopy (Chronic) Reported in 1959's in [place] Social History Smoking Status: Never smoker Hx Alcohol Use: No Hx Substance Use: No Physical Exam Vital Signs Last Vital Signs Temp 36.7 C 12/12/18 07:32 Pulse 79 12/12/18 07:32 Resp 17 12/12/18 07:32 BP 128/79 12/12/18 07:32 Pulse Ox 96 12/12/18 07:32 Testing Laboratory Results 12/12/18 09:28 12/12/18 09:28 PT 11.5 Seconds (9.0-12.0) 12/09/18 15:26 INR 1.1 (0.9-1.1) 12/09/18 15:26 APTT 25.3 Seconds (21.0-31.0) 12/09/18 15:26 Urine Color [place] 12/10/18 06:45 Urine Appearance Clear (Clear) 12/10/18 06:45 Urine pH 5.0 (4.5-7.5) 12/10/18 06:45 Ur Specific [place] 1.036 (1.000-1.030) H 12/10/18 06:45 Urine Protein Trace (Negative) H 12/10/18 06:45 Urine Glucose (UA) Negative (Negative) 12/10/18 06:45 Urine Ketones 1+ (Negative) H 12/10/18 06:45 Urine Nitrite Negative (Negative) 12/10/18 06:45 Ur Leukocyte Esterase Negative (Negative) 12/10/18 06:45 Urine WBC (Auto) 10-30 /hpf (0-5) H 12/10/18 06:45 Urine RBC (Auto) 5-10 /hpf (0-4) H 12/10/18 06:45 U Hyaline Cast (Auto) 5-10 /lpf (0-5) H 12/10/18 06:45 U Epithel Cells (Auto) >30 /lpf (0-5) H 12/10/18 06:45 Urine Bacteria (Auto) Negative (Negative) 12/10/18 06:45 12/10/18 06:45 Urine Culture - Final Urine,Clean Catch No growth - less than 1,000 colonies/mL. 12/10/18 07:42 Aerobic Blood Culture - Preliminary Blood No growth in Aerobic bottle after 48 hours. Anaerobic Blood Culture - Final 12/10/18 07:32 Aerobic Blood Culture - Preliminary Blood No growth in Aerobic bottle after 48 hours. Anaerobic Blood Culture - Preliminary No growth in Anaerobic bottle after 48 hours. 12/09/18 14:51 WBC Smear - Final Stool
--- NOTE | 2018-12-12 12:41 | History & Physical Report ---
Date of Service December 12, 2018 Assessment & Plan (1) Abnormal CT scan, gastrointestinal tract: stable for flexible sigmoidoscopy History of Present Illness Chief Complaint: Reported hx of colitis and weight loss and abnormal imaging on CT scan Primary Care Provider: NO PCP pt with weight loss/ reported hx of colitis and abnormal CT imaging of colon for flexible sigmoidoscopy Allergies Allergy/AdvReac Type Severity Reaction Status Date / Time No Known Allergies Allergy Unverified 12/09/18 15:04 Home Medications Home Medications Medication Instructions Recorded Confirmed Type ibuprofen 800 mg PO TID PRN 12/09/18 12/09/18 History Past Med/Surg History Medical History Colitis (Chronic) Ulcerative colitis (Chronic) Surgical History H/O colonoscopy (Chronic) Reported in s in [place] Social History Preferred Language: [facility] Communication Ability: Speaks Petey Overhead Irrigator Required: No Beliefs That Will Affect Care: None Current Living Situation: Family Current Living Situation Comment: Lives with her daughter and her daughters - Madeline Other Information That Helps Us Care for You: No Feels Safe at Home: Yes Safety Concerns: Feels Safe At This Time Smoking Status: Never smoker Hx Alcohol Use: No Hx Substance Use: No Physical Exam Constitutional: WD/WN, vitals as above Respiratory: normal respiratory effort, lungs clear to auscultation Cardiovascular: RRR, no murmur, no edema Gastrointestinal (Abdomen): normal bowel sounds, soft, nontender, no hepatosplenomegaly Results & Data Vital Signs (Past 12 Hours) Vital Signs Temp Pulse Resp BP Pulse Ox 12/12/18 12:29 36.4 C L 100 H 18 123/81 98 12/12/18 11:13 36.5 C 91 H 17 117/71 91 12/12/18 07:32 36.7 C 79 17 128/79 96 12/12/18 04:46 36.7 C 75 95 H 115/72 95
--- NOTE | 2018-12-12 13:10 | GI REPORT ---
Patient Name: Edwina Cunningham Procedure Date: 12/12/2018 12:42 PM Date of : 1935 Admit Type: Inpatient Age: 83 Gender: Female Attending MD: Matias Avalos MD Procedure: Flexible Sigmoidoscopy Providers: Matias Avalos MD Referring MD: Bina Spencer Do Indications: Abnormal CT of the GI tract and reported hx of colitis Medicines: None Complications: No immediate complications. Estimated Blood Loss: Estimated blood loss was minimal. Procedure: Pre-Anesthesia Assessment: - Prior to the procedure, a History and Physical was performed, and patient medications, allergies and sensitivities were reviewed. The patient's tolerance of previous anesthesia was reviewed. - The risks and benefits of the procedure and the sedation options and risks were discussed with the patient and daughter who is POA. All questions were answered and informed consent was obtained from the daughter. - Patient identification and proposed procedure were verified prior to the procedure by the physician and the nurse. The procedure was verified in the pre-procedure area. - Pre-procedure physical examination revealed no contraindications to sedation. - After reviewing the risks and benefits, the patient was deemed in satisfactory condition to undergo the procedure. After obtaining informed consent, the endoscope was passed under direct vision. Throughout the procedure, the patient's blood pressure, pulse, and oxygen saturations were monitored continuously. The Scope was introduced through the anus and advanced to the descending colon. The flexible sigmoidoscopy was accomplished without difficulty. The patient tolerated the procedure well. The quality of the bowel preparation was fair. Findings: The perianal and digital rectal examinations were normal. A continuous area of severely ulcerated mucosa was present in the entire examined colon. Biopsies were taken with a cold forceps for histology. Verification of patient identification for the specimen was done by the physician and nurse using the patient's name and medical record number. Estimated blood loss was minimal. Impression: - Preparation of the colon was fair. - Severe colitis. Biopsied. Recommendation: - Return patient to [facility] for [facility] care. - I had long converstaion with daughter and son-in-law and I recommend a KUB to look for bea colon or possible bowel perforation from the severe colitis. I also recommend a surgical consult given continued high WBC and severe colitis. Though the family has refused these recommendations in the past, they seem to agree with these recommendations now. Recheck C. diff as well. Matias Avalos M.D. Matias Avalos MD 12/12/2018 1:09:59 PM This report has been signed electronically. Note Initiated On: 12/12/2018 12:42 PM Number of Addenda: 0 I attest to the content of the Intraoperative Record and orders documented therein, exceptions below {[id number]}
--- NOTE | 2018-12-12 13:32 | XRay Report ---
XR KUB/Abdomen 1 view CLINICAL HISTORY: 83 years-old Female presenting with pain, colitis, leukocytosis. TECHNIQUE: Single supine view of the abdomen was obtained. COMPARISON: CT from 12/09/2018. FINDINGS: Colonic bowel wall thickening of the transverse colon noted. No bowel obstruction. No gross pneumoper itoneum. Calcification in the left pelvis correlates with a degenerated fibroid. The recently seen left nephro lithiasis is not well demonstrated on the current exam. Degenerative changes of the spine. Lung bases clear. IMPRESSION: 1. Colonic wall thickening is evidence of colitis. Electronically signed by: Andrea Anderson M.D. 12/12/2018 1:30 PM
[2018-12-12] MEDS ORDERED: ACETAMINOPHEN SOLN 500 MG/15.62 ML UDP PO SCH (16:00)
--- NOTE | 2018-12-12 16:14 | Surgery Consultation ---
Date of Consultation December 12, 2018 Assessment & Plan (1) Abnormal CT scan, gastrointestinal tract: Seen with Dr. Pacheco. We are more concerned about the possibility of cholangitis than her colitis. Family seems to be focused on her colitis, will reorder MRCP. No surgical findings, will continue to follow. History of Present Illness Attending Physician: Bina Spencer DO History of Present Illness 83 y/o female admitted 3 days ago for abdominal pain, anorexia, weight loss approx 50 pounds over several months. Has history of ulcerative colitis diagnosed in [place] in 1967 she has managed herself with diet and herbal remedies. We were asked to see for colitis, elevated WBCs. She had flex sig today which showed inflammatory changes, biopsies pending. Also has suspected CBD stones on CT scan. Also has right ovarian dermoid cyst and has been seen by [facility] CLUB MANAGER. History taken from daughter, patient is Egyptian speaking. Allergies Allergy/AdvReac Type Severity Reaction Status Date / Time No Known Allergies Allergy Unverified 12/09/18 15:04 Home Medications Home Medications Medication Instructions Recorded Confirmed Type ibuprofen 800 mg PO TID PRN 12/09/18 12/09/18 History Patient History Medical History CKD (chronic kidney disease) Low urine output Hypernatremia Renal insufficiency DVT prophylaxis Choledocholithiasis Common bile duct dilatation Adnexal mass Tachycardia Rectal bleeding Pancolitis Colitis (Chronic) Ulcerative colitis (Acute) Abdominal pain (Acute) Dehydration (Acute) Hypokalemia (Acute) Hypocalcemia (Acute) Dermoid tumor (Acute) Ulcerative colitis (Chronic) Surgical History H/O colonoscopy (Chronic) Reported in s in [place] Social History Preferred Language: Egyptian Communication Ability: Speaks Petey 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: No Beliefs That Will Affect Care: None Current Living Situation: Family Current Living Situation Comment: Lives with her daughter and her daughters - Madeline Other Information That Helps Us Care for You: No Feels Safe at Home: Yes Safety Concerns: Feels Safe At This Time Smoking Status: Never smoker Hx Alcohol Use: No Hx Substance Use: No Physical Exam Gastrointestinal (Abdomen): Inspection/Auscultation: abdomen not distended Percussion/Palpation: + abdomen tender (mild right side to midline); no guarding Results & Data Vital Signs (Past 12 Hours) Vital Signs Temp Pulse Resp BP Pulse Ox 12/12/18 15:01 36.5 C 100 H 18 98/62 L 96 12/12/18 12:29 36.4 C L 100 H 18 123/81 98 12/12/18 11:13 36.5 C 91 H 17 117/71 91 12/12/18 07:32 36.7 C 79 17 128/79 96 12/12/18 04:46 36.7 C 75 95 H 115/72 95
--- NOTE | 2018-12-12 17:02 | Hospitalist Progress Note ---
Date of Service December 12, 2018 Assessment & Plan (1) HAP (hospital-acquired pneumonia): Changing Cipro/Flagyl to Zosyn. She has not had any fever since original blood cultures were drawn. These have not grown anything in 48 hours. White count has improved this morning after re-addition of antibiotics. No coughing but she is very weak and having difficulty swallowing per daughter. Will ask speech to see her once she is able to eat again, as she is a very high aspiration risk mainly secondary to fatigue. (2) Pancolitis: Worsened clinically, but with some improvement in white blood cell count to 21. C. difficile is negative. She was taken for flexible sigmoidoscopy and biopsies were performed. There was not enough stool to collect for culture. Initially steroids were considered the next step. However, with her visualize common bile duct stone and persistent abdominal pain, an MRCP is recommended to ensure the common bile duct stone is not obstructing the duct and contributing to pain. The patient and family have agreed to an MRCP in the morning. MRI and nursing were updated. After this is performed we will expect that if that is negative we will proceed with steroids for treatment of a UC flare. Biopsy is pending to confirm diagnosis of IBD. Continue supportive care with PRN Tylenol. Scheduled Tylenol was stopped as this was likely sedating her too much. Morphine has been stopped. She can have as needed tramadol or Tylenol as needed for pain. Of note general surgery was consulted after the flexible sigmoidoscopy with biopsy to ensure there was no microperforation. There is no current evidence of this. KUB was performed revealing pancolitis. 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 Consulting nephrology for low urine output and poor renal function. Although hypotonic fluids are ideal in the setting of hypovolemia and hypernatremia, she has an albumin of 1.5 in is not able to hold onto fluid intravascularly. After discussion with nephrology, will stop IV fluids at this time and start albumin 12.5 g 3 times daily and monitor for effect. Joshi is in place. Strict I's and O's. (4) Renal insufficiency: Uncertain baseline as no prior records. Nephrology following, continue to monitor lab work. (5) Hypokalemia: Secondary to profuse diarrhea in recent weeks. Resolved after replacement. (6) Adnexal mass: She has lost approximately half her body weight over the last 6 months. She was seen to have a dermoid cyst that is 11 cm in diameter on CT imaging in the ER yesterday. Per gynecology we will not pursue any surgical intervention at this time given her age and comorbidities. This was explained to the family were understanding of this. (7) Choledocholithiasis: She has evidence of choledocholithiasis on CT imaging. MRCP to confirm stone is not an issue prior to starting high-dose steroids. (8) Tachycardia: Episodes of tachycardia have occurred throughout the hospitalization. Aft er informal discussion with cardiology, there is no evidence of atrial fibrillation on personnel monitor. This is more consistent with a burst of atrial tachycardia in the setting of her illness is appropriate. At this time no need for beta-blockers. (9) Severe malnutrition: PPN ordered for tomorrow. Appreciate nutrition involvement and recommendations. This is a temporary measure to allow bowel rest while steroid treatment can improve things clinically. May have to consider longer term TPN if this persists. (10) DVT prophylaxis: SCDs/ambulation in setting of hematochezia. Full Code Dispo-cont hospitalization, for now cont telemetry. Bina Spencer DO [facility] Hospitalist Results & Data Vital Signs (Past 12 Hours) Vital Signs Temp Pulse Resp BP Pulse Ox 12/12/18 15:01 36.5 C 100 H 18 98/62 L 96 12/12/18 12:29 36.4 C L 100 H 18 123/81 98 12/12/18 11:13 36.5 C 91 H 17 117/71 91 12/12/18 07:32 36.7 C 79 17 128/79 96 Laboratory Results Short CBC 12/12/18 Range/Units 09:28 WBC 20.58 H (4.8-10.8) K/uL Hgb 15.3 (12.0-16.0) g/dL Hct 44.0 (37-47) % Plt Count 265 (130-400) K/uL BMP 12/12/18 09:28 Sodium 144 Potassium 4.1 Chloride 116 H Carbon Dioxide 23 BUN 48 H Creatinine 1.61 H Glucose 77 Calcium 9.0 Diagnostic Findings XR KUB/Abdomen 1 view CLINICAL HISTORY: 83 years-old Female presenting with pain, colitis, leukocytosis. TECHNIQUE: Single supine view of the abdomen was obtained. COMPARISON: CT from 12/09/2018. FINDINGS: Colonic bowel wall thickening of the transverse colon noted. No bowel obstruction. No gross pneumoperitoneum. Calcification in the left pelvis correlates with a degenerated fibroid. The recently seen left nephrolithiasis is not well demonstrated on the current exam. Degenerative changes of the spine. Lung bases clear. IMPRESSION: 1. Colonic wall thickening is evidence of colitis. Medications Administered Current Inpatient Medications Acetaminophen (Tylenol) 500 mg PO Q8H CHARI Stop: 01/11/19 15:59 Last Admin: 12/12/18 16:26 Dose: Not Given Documented by: Ciprofloxacin (Cipro) 400 mg in 200 mls @ 100 mls/hr IV DAILY CHARI; Protocol Stop: 12/21/18 09:59 Last Infusion: 12/12/18 12:30 Dose: Infused Documented by: Metronidazole (Flagyl) 500 mg in 100 mls @ 100 mls/hr IV Q8H CHARI; Protocol Stop: 12/21/18 09:59 Last Infusion: 12/12/18 11:06 Dose: Infused Documented by: Dextrose/Sodium Chloride (D5w And 1/2nss) 1,000 mls @ 80 mls/hr IV .[id number] CHARI Stop: 01/11/19 08:59 Last Admin: 12/12/18 09:58 Dose: 80 mls/hr Documented by: Thiamine HCl 100 mg/ Syringe 10 mls @ 2 mls/min IV QAM [facility] Stop: 01/12/19 08:59 Lorazepam (Ativan) 0.5 mg PO HS PRN PRN Reason: Insomnia Stop: 01/08/19 21:59 Last Admin: 12/09/18 22:56 Dose: 0.5 mg Documented by: Miscellaneous Information (Ciprofloxacin Consult Active) 1 ea N/A UD [facility] Stop: 01/10/19 09:57 Tramadol HCl (Ultram) 50 mg PO Q4H PRN PRN Reason: Pain Stop: 01/09/19 15:44 Last Admin: 12/11/18 17:01 Dose: 50 mg Documented by:
--- NOTE | 2018-12-12 18:35 | XRay Report ---
XR chest 1V portable CLINICAL HISTORY: ensure no fluid overload, +IVF, swelling pain. Edema. COMPARISON STUDY: No previous studies for comparison. FINDINGS: Poorly defined parenchymal infiltrate left base. Lungs otherwise appear clear. Heart is top limits of normal terms of size. Diaphragms are smooth. IMPRESSION: Poorly defined infiltrate left base. The above report was generated using voice recognition software. It may contain grammatical, syntax or spelling errors. Electronically signed by: Remi Ewing M.D. 12/12/2018 6:34 PM
[2018-12-12] MEDS ORDERED: methylPREDNISolone 20 MG in SYRINGE 0 ML IV SCH (19:00)
[2018-12-12] MEDS ORDERED: Nursing to Pharmacy Communication ONE (19:22)
[2018-12-12] MEDS ORDERED: ACETAMINOPHEN IV PRN (19:45)
--- NOTE | 2018-12-12 20:39 | Nephrology Progress Note ---
Date of Service December 12, 2018 Assessment & Plan (1) Renal insufficiency: unclear baseline creatinine > started at 1.3, then to 1.1 w/ ivf, then to 1.4 likely d/t IV contrast exposure, dehydration >> now at 1.6. ua w/ mixed cell casts, ketones, very dry. unremarkable kidneys on imaging. some nsaid use prior to admission 1--2 ibuprofen daily x at least a week. also hx of homeopathic med use prior to admission. oliguric. getting some edema now; albumin1.5 -change ivf to 25% albumin 12.5 gm q8h; cxr to eval pulm status -strict I/0 -recheck bmp in am -if electrolyte issues recur, may need to go back to D51/2 NS (2) Hypokalemia: improved w/ therapy -recheck in am and address as needed (3) Hypernatremia: improved on ivf; monitor off of ivf Subjective seen on rounds this afternoon 1430; care d/w family >10 min and w/ dr wolff. pt doing poorly; had sigmoidoscopy today w/ bx; very weak, tired, lots of abd pain. not getting out of bed. daughter concerned about fecal incontinence today. IVF stopped 0100; then resumed again today w/ slight bump in creatinine Review of Systems Review of Systems: Other (FOR limited by clincal condition > moaning, eyes closed, will not participate in ros though arouseable) Physical Exam Constitutional: well developed and + cachectic lying flat on ra moaning eyes closed Eyes: EOM intact bilaterally ENMT: Ears: no external ear abnormality Nose: no external nose abnormality Mouth: + dry oral mucous membranes Neck: no nuchal rigidity Respiratory: normal respiratory effort Auscultation: + diminished lung sounds Cardiovascular: Rate/Rhythm: regular rate and + tachycardic Extremities: + edema (1+ BL ankles) Gastrointestinal (Abdomen): Inspection/Auscultation: normal bowel sounds Percussion/Palpation: + abdomen tender, + guarding and abdomen soft Musculoskeletal: Extremities: strength 5/5 throughout Skin: no rashes, warm and dry Neurologic: mi Genitourinary: fagan in place w/ scant urine Results & Data Vital Signs (Past 12 Hours) Vital Signs Temp Pulse Resp BP Pulse Ox 12/12/18 15:01 36.5 C 100 H 18 98/62 L 96 12/12/18 12:29 36.4 C L 100 H 18 123/81 98 12/12/18 11:13 36.5 C 91 H 17 117/71 91 Laboratory Results Abnormal lab results 12/12/18 12/12/18 Range/Units 09:28 09:28 WBC 20.58 H (4.8-10.8) K/uL RDW Std Deviation 49.9 H (36.4-46.3) fL RDW Coeff of Yasmany 15.7 H (11.5-14.5) % Immature Gran # (Auto) 0.19 H (0.00-0.02) K/uL Neut # (Auto) 18.24 H (1.4-6.5) K/uL [place] # (Auto) 0.73 H (0.11-0.59) K/uL Chloride 116 H (98-107) mmol/L BUN 48 H (7-18) mg/dl Creatinine 1.61 H (0.6-1.2) mg/dl BUN/Creatinine Ratio 29.8 H (10-20)
[2018-12-12] MEDS ORDERED: TPN/PPN CONSULT PHARMACY PRN (20:42)
[2018-12-12] MEDS: ALBUMIN 25% 50 ML IV SCH (20:52)
[2018-12-13] MEDS ORDERED: PIPERACILL/TAZOBAC CONSULT ACTIVE PRN (00:23)
[2018-12-13] MEDS: PIPERACILLIN/TAZOBACTAM 3.375 GM in DEXTROSE 5% 100 ML IV SCH ×2 (00:58→15:23)
[2018-12-13 07:19] LABS: BUN Creatinine Ratio 27.9 (10-20); Calcium 9.2 mg/dl (8.5-10.1); Creatinine Clr Calc Pharmacy 13.1 ml/min; Est GFR (African American) 26.4; Est GFR (Non-African American) 22.8; Potassium 4.3 mmol/L (3.5-5.1)
[2018-12-13 07:20] LABS: Phosphorus 2.6 mg/dl (2.5-4.9)
[2018-12-13 07:39] LABS: Hematocrit (blood only) 42.1 % (37-47); Hemoglobin 14.4 g/dL (12.0-16.0); Mean Corpuscular Hgb Conc 34.2 g/dL (32-36); Mean Corpuscular Volume 85.9 fL (80-100); Mean Platelet Volume 10.4 fL (7.4-10.4); Platelet Count 304 K/uL (130-400); RDW Coefficient of Variation 15.8 % (11.5-14.5); RDW Standard Deviation 49.2 fL (36.4-46.3); White Blood Count 19.28 K/uL (4.8-10.8)
[2018-12-13 07:40] LABS: Basophils # (auto) 0.04 K/uL (0-0.2); Basophils % (auto) 0.2 %; Echinocytes 2+; Eosinophils # (auto) 0.01 K/uL (0-0.5); Eosinophils % (auto) 0.1 %; Immature Granulocytes # (auto) 0.22 K/uL (0.00-0.02); Immature Granulocytes % (auto) 1.1 %; Lymphocytes # (auto) 0.96 K/uL (1.2-3.4); Monocytes # (auto) 0.49 K/uL (0.11-0.59); Monocytes % (auto) 2.5 %; Neutrophils # (auto) 17.56 K/uL (1.4-6.5); Neutrophils % (auto) 91.1 %; Platelet Estimate Normal (Normal); Toxic Granulation 2+; Toxic Vacuolation 1+
--- NOTE | 2018-12-13 08:53 | Gastroenterology Progress Note ---
Date of Service December 13, 2018 Assessment & Plan (1) Ulcerative colitis: (2) Abdominal pain: Patient with a history of ulcerative colitis underwent sigmoidoscopy with Dr. Avalos yesterday. We are awaiting MRCP results to determine if the patient may be in need of ERCP. This had been suggested by the GI service a number of times during the admission but declined by the patient and her family. Recommendations MRCP pending Repeat liver enzymes ordered for this morning If MRCP is positive we will make arrangements for ERCP If MRCP is negative would suggest resuming steroids for the ulcerative colitis Subjective I saw and evaluated the patient, her daughter was at bedside and provided translation service (normal translation services declined by the patient and her daughter). The patient did have an episode of emesis this morning which appears to be bilious in nature. She notes that her pain is localizing to her left hand side. Review of Systems Eyes: no diplopia Respiratory: no change in sputum and no hemoptysis Cardiovascular: no chest pain with activity and no dyspnea at rest Physical Exam Eyes: No scleral icterus noted Respiratory: normal respiratory effort; no respiratory distress and does not use accessory muscles Cardiovascular: Rate/Rhythm: regular rate; not tachycardic Heart Sounds: no murmur Gastrointestinal (Abdomen): Inspection/Auscultation: abdomen not distended Percussion/Palpation: + abdomen tender Mild tenderness to palpation in the left lower quadrant and left upper quadrant Results & Data Vital Signs (Past 12 Hours) Vital Signs Temp Pulse Pulse Resp BP BP Pulse Ox 12/13/18 07:49 36.8 C 102 H 16 126/62 95 12/13/18 03:24 36.9 C 102 H 20 131/89 94 12/12/18 23:58 96 H 12/12/18 23:55 36.5 C 88 20 128/75 98 Laboratory Results Laboratory Results - last 24 hr 12/12/18 12/12/18 12/13/18 09:28 09:28 05:58 WBC 20.58 H 19.28 H RBC 5.01 4.90 Hgb 15.3 14.4 Hct 44.0 42.1 MCV 87.8 85.9 MCH 30.5 29.4 MCHC 34.8 34.2 RDW Std Deviation 49.9 H 49.2 H RDW Coeff of Yasmany 15.7 H 15.8 H Plt Count 265 304 MPV 10.0 10.4 Immature Gran % (Auto) 0.9 1.1 Neut % (Auto) 88.7 91.1 Lymph % (Auto) 6.3 5.0 [place] % (Auto) 3.5 2.5 Eos % (Auto) 0.5 0.1 Baso % (Auto) 0.1 0.2 Immature Gran # (Auto) 0.19 H 0.22 H Neut # (Auto) 18.24 H 17.56 H Lymph # (Auto) 1.29 0.96 L [place] # (Auto) 0.73 H 0.49 Eos # (Auto) 0.10 0.01 Baso # (Auto) 0.03 0.04 Toxic Granulation 2+ 2+ Toxic Vacuolation 1+ 1+ Dohle Bodies 1+ Platelet Estimate Normal Echinocytes 2+ 2+ Sodium 144 Potassium 4.1 Chloride 116 H Carbon Dioxide 23 Anion Gap 5.0 BUN 48 H Creatinine 1.61 H Est Cr Clr Drug Dosing 15.0 Est GFR ( Amer) 33.9 Est GFR (Non-Af Amer) 29.3 BUN/Creatinine Ratio 29.8 H Glucose 77 Calcium 9.0 Phosphorus Magnesium Total Bilirubin Direct Bilirubin AST ALT Alkaline Phosphatase Total Protein Albumin Triglycerides 12/13/18 12/13/18 05:58 05:58 WBC RBC Hgb Hct MCV MCH MCHC RDW Std Deviation RDW Coeff of Yasmany Plt Count MPV Immature Gran % (Auto) Neut % (Auto) Lymph % (Auto) [place] % (Auto) Eos % (Auto) Baso % (Auto) Immature Gran # (Auto) Neut # (Auto) Lymph # (Auto) [place] # (Auto) Eos # (Auto) Baso # (Auto) Toxic Granulation Toxic Vacuolation Dohle Bodies Platelet Estimate Echinocytes Sodium 142 Potassium 4.3 Chloride 112 H Carbon Dioxide 23 Anion Gap 7.0 BUN 55 H Creatinine 1.98 H D Est Cr Clr Drug Dosing 13.1 Est GFR ( Amer) 26.4 Est GFR (Non-Af Amer) 22.8 BUN/Creatinine Ratio 27.9 H Glucose 70 Calcium 9.2 Phosphorus 2.6 Magnesium 2.0 Total Bilirubin Pending Direct Bilirubin Pending AST Pending ALT Pending Alkaline Phosphatase Pending Total Protein Pending Albumin Pending Triglycerides 46 (1) Ulcerative colitis Digestive disease complication type: with rectal bleeding Ulcerative colitis location: unspecified ulcerative colitis location Qualified Code(s): K51.911 - Ulcerative colitis, unspecified with rectal bleeding (2) Abdominal pain Abdominal location: lower abdomen, unspecified Qualified Code(s): R10.30 - Lower abdominal pain, unspecified
[2018-12-13 09:05] LABS: Albumin Level 1.6 gm/dl (3.4-5.0); Bilirubin Direct 0.6 mg/dl (0-0.2); Total Protein 4.7 gm/dl (6.4-8.2)
[2018-12-13] MEDS ORDERED: DEXTROSE 10% 1,000 ML IV SCH ×2 (09:15→16:00)
[2018-12-13] MEDS: THIAMINE HCL 100 MG in SYRINGE 9 ML IV SCH (09:20)
[2018-12-13] MEDS: ALBUMIN 25% 50 ML IV SCH ×2 (09:20→15:23)
--- NOTE | 2018-12-13 09:41 | Pharmacy Report ---
Pharmacy PN Initial Consult - Date of Service December 13, 2018 - Scope Pharmacy has been consulted to manage parenteral nutrition orders and order appropriate labs. As part of the Nutrition Support Team guidelines, pharmacy will work in conjunction with dietary when determining the patients caloric needs. - Subjective The patient is a 83 year old F admitted on 12/09/18 20:04 for PANCOLITIS. Patient is to receive parenteral nutrition for Pancolitis, NPO > 3 days, 30 lb wt loss in past 6 months. Pertinent PMH: Ulcerative Colitis, pt underwent sigmoidoscopy yesterday, awaiting MRCP results to determine if pt needs ERCP, this has been suggested by GI service, but declined by pt and family a number of times during this admission. - Objective Height: 4 ft 9 in Weight: 42.5 kg Diet: NPO Intake & Output (Last 24Hrs): Intake & Output 12/11/18 12/12/18 12/13/18 12/14/18 06:59 06:59 06:59 06:59 Intake Total 2124.573 / 2124.573 2950 / 2950 1333 / 1333 Output Total 295 / 295 225 / 225 250 / 250 Balance 1829.573 / 6135.739 5874 / 2725 1083 / 1083 Weight 35.8 kg 42.5 kg Laboratory Data (Last 24 Hrs):: 12/12/18 12/13/18 12/13/18 09:28 05:58 05:58 Sodium 144 142 Potassium 4.1 4.3 Chloride 116 H 112 H Carbon Dioxide 23 23 BUN 48 H 55 H Creatinine 1.61 H 1.98 H D Glucose 77 70 Calcium 9.0 9.2 Phosphorus 2.6 Magnesium 2.0 Total Bilirubin 1.0 AST 1374 H ALT 782 H Alkaline Phosphatase 364 H Albumin 1.6 L Triglycerides 46 Nutrition Assessment:: Please refer to the Notes section of the EMR for the most recent architectural design professor note. - Plan For day 1 of PN administration, the following will be ordered: Macronutrients Amino acids 50 grams/day Dextrose 80 grams/day (goal 110g/day - starting with lower dose on Day 1 to prevent refeeding syndrome, pt at risk) Lipids 35 grams/day Micronutrients Combined electrolytes 20 mL - contains 35 mEq Na, 20 meq K, 4.5 mEq Ca, 5 mEq Mg, 35 mEq Cl, 29.5 mEq acetate per 20 mL Potassium phosphate 21 mMol Multivitamins 10 mL Trace Elements 10 mL Pt receiving Thiamine 100mg IV daily outside of PPN Total volume 1800 mL to be infused over 24 hrs will provide 822 kcal/day Final osmolarity 589 mOsm/L (maximum for PPN is 600 mOsm/L) Labs to be ordered per PN order protocol Pharmacy will follow and adjust parenteral nutrition orders on a daily basis. Thank you.
--- NOTE | 2018-12-13 11:15 | Magnetic Resonance Report ---
MR MRCP CLINICAL HISTORY: Cholelithiasis. Abdominal pain. Possible common bile duct calculus on CT scanning. COMPARISON STUDY: CT scan dated 12/09/2018 FINDINGS: There are small bilateral pleural effusions. There is cholelithiasis. There are 2 common bile duct filling defects largest of which measures 5 mm. The findings are indicat derek of common bile duct calculi. The common bile duct measures 7 mm. There is no pancreatic ductal dilatation. There is mild diffuse colonic wall thickening. IMPRESSION: 1. Cholelithiasis 2. 2 common bile duct calculi are visualized, the largest of which measures 5 mm 3. No evidence of pancreatic ductal dilatation 4. 7 mm common bile duct 5. Mild diffuse colonic wall thickening. Electronically signed by: Carlos Fairbanks M.D. 12/13/2018 11:14 AM
--- NOTE | 2018-12-13 12:44 | Surgery Progress Note ---
Date of Service December 13, 2018 Assessment & Plan (1) Abnormal CT scan, gastrointestinal tract: 12/13/2018 MRCP shows 2 common bile duct calculi- the largest of which measures 5 mm. GI is currently following patient and will plan for ERCP. General Surgery will continue to follow. 12/12/[address] Pacheco. We are more concerned about the possibility of cholangitis than her colitis. Family seems to be focused on her colitis, will reorder MRCP. No surgical findings, will continue to follow. Subjective Dr. Pacheco spoke with daughter at bedside- discussed MRCP for this AM, explained that our current concern is that patient may have stone(s) in common bile duct. MRCP planned for today. Results & Data Vital Signs (Past 12 Hours) Vital Signs Temp Pulse Resp BP Pulse Ox 12/13/18 12:04 36.7 C 109 H 16 108/71 96 12/13/18 07:49 36.8 C 102 H 16 126/62 95 12/13/18 03:24 36.9 C 102 H 20 131/89 94
[2018-12-13 13:09] LABS: Appearance Urine Turbid (Clear); Blood Urine Trace (Negative); Color Urine Orange; Epithelial Cell Urine Auto >30 /lpf (0-5); Glucose Urine UA Negative (Negative); Ketones Urine Trace (Negative); Leukocyte Esterase Urine 1+ (Negative); Nitrite Urine Positive (Negative); Protein Urine Trace (Negative); Specific Gravity Urine 1.037 (1.000-1.030); Urobilinogen Urine Negative (Negative); WBC Urine Automated >30 /hpf (0-5)
[2018-12-13 13:19] LABS: Bilirubin Urine Negative (Negative); Ictotest Urine Negative (Negative)
[2018-12-13 13:26] LABS: Bacteria Urine Automated 1+ (Negative)
[2018-12-13 13:27] LABS: Cast Urine Automated 0 /lpf (0-5)
--- NOTE | 2018-12-13 14:49 | Hospitalist Progress Note ---
Date of Service December 13, 2018 Assessment & Plan (1) Choledocholithiasis: She has evidence of choledocholithiasis on CT imaging. MRCP confirmed presence of stones. ERCP today. (2) Transaminitis: New, acute change in LFTs, worsening abdominal pain and now with bilious vomiting. ERCP today. (3) Pancolitis: MRCP this morning reveals stones in the CBD, therefore ERCP is being set up. S/p flex sig yesterday with biopsies pending. Stool culture pending. ++fecal WBCs consistent with inflammatory process. After this is performed we will expect that if that is negative we will proceed with steroids for treatment of a UC flare. Tylenol held in setting of elevated LFTs. Morphine has been stopped. She can have as needed tramadol. Cont Zosyn (4) HAP (hospital-acquired pneumonia): Cont Zosyn, continues to oxygenate well on room air. WBC slightly improved but patient is very ill-appearing. Will ask speech to see her once she is able to eat again, as she is a very high aspiration risk mainly secondary to fatigue. (5) Low urine output: Stopping albumin with multiple ongoing processes, and patient will be s tarting peripheral nutrition. today. Appreciate Neprho input. Approx 250 out q24 hrs into Joshi x 3 days. (6) Renal insufficiency: Uncertain baseline as no prior records. Nephrology following, continue to monitor lab work. (7) Tachycardia: Episodes of tachycardia have occurred throughout the hospitalization. After informal discussion with cardiology, there is no evidence of atrial fibrillation on traffic monitor specialist. This is more consistent with a burst of atrial tachycardia in the setting of her illness is appropriate. At this time no need for beta-blockers. (8) Severe malnutrition: PPN ordered for today, and iwll be a temporary fix. Appreciate nutrition involvement and recommendations. This is a temporary measure to allow bowel rest while steroid treatment can improve things clinically. May have to consider longer term TPN if this persists. (9) Adnexal mass: She has lost approximately half her body weight over the last 6 months. She was seen to have a dermoid cyst that is 11 cm in diameter on CT imaging in the ER yesterday. Per gynecology we will not pursue any surgical intervention at this time given her age and comorbidities. This was explained to the family were understanding of this. (10) DVT prophylaxis: Heparin started as H/H has been stable despite intermittent hematochezia, and risk for DVT is high. Will have pharmacy dose as she is so light in weight. Full Code Dispo-cont hospitalization, for now cont telemetry. Bina Spencer DO [facility] Hospitalist Subjective 83 yo F with pancolitis, thought 2/2 IBD flare. ++WBC in stool. She continues to decline. She speaks only Mal[place]ian and daughter is translating. She is not confused per daughter. She is now having bouts of nausea with a bilious colored vomitus that is new. She vomited approximately 5 times this morning per family. Discussed with GI that MRCP was positive and the change in her status. ERCP planned for today. Review of Systems Review of Systems: Other (unobtainable as patient doesn't speak Wolof and wants translation through daughter. ) diarrhea still present, +abd pain, no fevers Physical Exam Physical Exam: CONSTITUTIONAL: frail, cachectic, vitals as above, generally ill-appearing. Holding her abdomen, moaning and appears to be in pain EYES: eyes closed RESPIRATORY: clear to auscultation bilaterally. CARDIOVASCULAR: regular rate and rhythm, S1 and 2 heard without murmurs, gallops or rubs, no JVD, no peripheral edema GASTROINTESTINAL: normal bowel sounds, soft, nontender, nondistended, no guarding MUSCULOSKELETAL: generalized weakness, can move her arms and legs equally, requires assistance to sit up in bed. SKIN: warm and dry NEUROLOGIC: difficult to assess as she is lethargic and fatigued, daughter translating and states that she is not confused. PSYCHIATRIC: easily follows instruction as given. Results & Data Vital Signs (Past 12 Hours) Vital Signs Temp Pulse Resp BP Pulse Ox 12/13/18 12:04 36.7 C 109 H 16 108/71 96 12/13/18 07:49 36.8 C 102 H 16 126/62 95 12/13/18 03:24 36.9 C 102 H 20 131/89 94 Laboratory Results Short CBC 12/13/18 Range/Units 05:58 WBC 19.28 H (4.8-10.8) K/uL Hgb 14.4 (12.0-16.0) g/dL Hct 42.1 (37-47) % Plt Count 304 (130-400) K/uL [facility] 12/13/18 05:58 Sodium 142 Potassium 4.3 Chloride 112 H Carbon Dioxide 23 BUN 55 H Creatinine 1.98 H D Glucose 70 Calcium 9.2 Liver Function 12/13/18 Range/Units 05:58 Total Bilirubin 1.0 (0.2-1) mg/dl Direct Bilirubin 0.6 H (0-0.2) mg/dl AST 1374 H (15-37) U/L ALT 782 H (12-78) U/L Alkaline Phosphatase 364 H (45-117) U/L Albumin 1.6 L (3.4-5.0) gm/dl Urine 12/13/18 Range/Units 11:30 Urine Color [place] Urine Appearance Turbid A (Clear) Urine pH 5.0 (4.5-7.5) Ur Specific [place] 1.037 H (1.000-1.030) Urine Protein Trace H (Negative) Urine Glucose (UA) Negative (Negative) Medications Administered Current Inpatient Medications Thiamine HCl 100 mg/ Syringe 10 mls @ 2 mls/min IV QAM CHARI Stop: 01/12/19 08:59 Last Admin: 12/13/18 09:20 Dose: 2 mls/min Documented by: Acetaminophen 500 mg/ EMPTY (BAG) 50 mls @ 200 mls/hr IV Q4H PRN PRN Reason: Pain Stop: 01/11/19 19:44 Piperacillin Sod/Tazobactam (Sod 3.375 gm/ Dextrose) 115 mls @ 28.75 mls/hr IV Q12H [facility]; Protocol Stop: 12/20/18 01:59 Last Admin: 12/14/18 02:11 Dose: 28.8 mls/hr Documented by: Dextrose (D10w) 1,000 mls @ 0 mls/hr IV .Q0M CHARI Stop: 01/12/19 15:59 Lorazepam (Ativan) 0.5 mg PO HS PRN PRN Reason: Insomnia Stop: 01/08/19 21:59 Last Admin: 12/09/18 22:56 Dose: 0.5 mg Documented by: Miscellaneous Information (Pharmacy Tpn/Ppn Consult Active) 1 ea N/A UD PRN PRN Reason: Consult Stop: 01/11/19 20:41 Miscellaneous Information (Consult) 1 ea N/A UD PRN PRN Reason: Consult Stop: 01/12/19 00:22 Nutrition (Parenteral) (Custom Peripheral Pn) 1 bag IV TODAY@1600 [facility]; Protocol Stop: 12/14/18 15:59 Last Admin: 12/13/18 19:30 Dose: 1 bag Documented by: Pantoprazole Sodium (Protonix) 40 mg PO BID [facility] Stop: 01/12/19 20:59 Last Admin: 12/13/18 21:36 Dose: Not Given Documented by: Sucralfate (Carafate) 1 gm PO ACHS [facility] Stop: 01/12/19 20:59 Last Admin: 12/13/18 21:35 Dose: Not Given Documented by: Tramadol HCl (Ultram) 50 mg PO Q4H PRN PRN Reason: Pain Stop: 01/09/19 15:44 Last Admin: 12/11/18 17:01 Dose: 50 mg Documented by:
--- NOTE | 2018-12-13 15:47 | Nephrology Progress Note ---
Date of Service December 13, 2018 Assessment & Plan (1) Renal insufficiency: unclear baseline creatinine > started at 1.3, then to 1.1 w/ ivf, then to 1.9 today. Etiology of RYLEE likely ATN in setting of sepsis. She also got IV contrast exposure. some nsaid use prior to admission 1--2 ibuprofen daily x at least a week. also hx of homeopathic med use prior to admission. oliguric. getting some edema now; albumin1.6 -Will five 1 litre of LR -strict I/0 -recheck bmp in am (2) Hypokalemia: improved w/ therapy. K 4.3 today -recheck in am and address as needed (3) Hypernatremia: improved on ivf; monitor off of ivf Subjective Patient seen in follow up with daughter translating to Somali. Seen during morning rounds. She feels sick and weak. No SOB. Complain of abdominal pain. Does not want to eat. She is oliguric. Review of Systems Review of Systems: All systems reviewed & are unremarkable except as noted in HPI & below Physical Exam Physical Exam: General exam: Ill appearing, no acute distress HEENT: Pupils are equal and reactive to light Neck: No JVD, neck is supple trachea is midline Respiratory system: Clear breath sounds bilaterally. Gastrointestinal: Abdomen is soft, non distended, non tender, bowel sounds are present CVS: Regular rate and rhythm. No murmurs, rubs or gallops Musculoskeletal: No joint or muscle tenderness Extremities: Non tender, 1+ edema, peripheral pulses are present Neuro: Oriented, no tremors, no focal neurological deficits Skin: No rashes Results & Data Vital Signs (Past 12 Hours) Vital Signs Temp Pulse Resp BP Pulse Ox 12/13/18 12:04 36.7 C 109 H 16 108/71 96 12/13/18 07:49 36.8 C 102 H 16 126/62 95 Laboratory Results Laboratory Results - last 24 hr 12/13/18 12/13/18 12/13/18 05:58 05:58 05:58 WBC 19.28 H RBC 4.90 Hgb 14.4 Hct 42.1 MCV 85.9 MCH 29.4 MCHC 34.2 RDW Std Deviation 49.2 H RDW Coeff of Yasmany 15.8 H Plt Count 304 MPV 10.4 Immature Gran % (Auto) 1.1 Neut % (Auto) 91.1 Lymph % (Auto) 5.0 [place] % (Auto) 2.5 Eos % (Auto) 0.1 Baso % (Auto) 0.2 Immature Gran # (Auto) 0.22 H Neut # (Auto) 17.56 H Lymph # (Auto) 0.96 L [place] # (Auto) 0.49 Eos # (Auto) 0.01 Baso # (Auto) 0.04 Toxic Granulation 2+ Toxic Vacuolation 1+ Platelet Estimate Normal Echinocytes 2+ Sodium 142 Potassium 4.3 Chloride 112 H Carbon Dioxide 23 Anion Gap 7.0 BUN 55 H Creatinine 1.98 H D Est Cr Clr Drug Dosing 13.1 Est GFR ( Amer) 26.4 Est GFR (Non-Af Amer) 22.8 BUN/Creatinine Ratio 27.9 H Glucose 70 Calcium 9.2 Phosphorus 2.6 Magnesium 2.0 Total Bilirubin 1.0 Direct Bilirubin 0.6 H AST 1374 H ALT 782 H Alkaline Phosphatase 364 H Total Protein 4.7 L Albumin 1.6 L Triglycerides 46 Urine Color Urine Appearance Urine pH Ur Specific [place] Urine Protein Urine Glucose (UA) Urine Ketones Urine Blood Urine Nitrite Urine Bilirubin Urine Urobilinogen Ur Leukocyte Esterase Urine WBC (Auto) Urine RBC (Auto) U Hyaline Cast (Auto) U Epithel Cells (Auto) Urine Bacteria (Auto) Ur Renal Epithelial Cell Urine Yeast Stl C. diff Tox B Gene 12/13/18 12/13/18 09:05 11:30 WBC RBC Hgb Hct MCV MCH MCHC RDW Std Deviation RDW Coeff of Yasmany Plt Count MPV Immature Gran % (Auto) Neut % (Auto) Lymph % (Auto) [place] % (Auto) Eos % (Auto) Baso % (Auto) Immature Gran # (Auto) Neut # (Auto) Lymph # (Auto) [place] # (Auto) Eos # (Auto) Baso # (Auto) Toxic Granulation Toxic Vacuolation Platelet Estimate Echinocytes Sodium Potassium Chloride Carbon Dioxide Anion Gap BUN Creatinine Est Cr Clr Drug Dosing Est GFR ( Amer) Est GFR (Non-Af Amer) BUN/Creatinine Ratio Glucose Calcium Phosphorus Magnesium Total Bilirubin Direct Bilirubin AST ALT Alkaline Phosphatase Total Protein Albumin Triglycerides Urine Color [place] Urine Appearance Turbid A Urine pH 5.0 Ur Specific [place] 1.037 H Urine Protein Trace H Urine Glucose (UA) Negative Urine Ketones Trace H Urine Blood Trace H Urine Nitrite Positive A Urine Bilirubin Negative Urine Urobilinogen Negative Ur Leukocyte Esterase 1+ H Urine WBC (Auto) >30 H Urine RBC (Auto) 5-10 H U Hyaline Cast (Auto) 0 U Epithel Cells (Auto) >30 H Urine Bacteria (Auto) 1+ H Ur Renal Epithelial Cell Not Reportable Urine Yeast Not Reportable Stl C. diff Tox B Gene Negative Cdiff Gene
[2018-12-13] MEDS ORDERED: LACTATED RINGER'S 1,000 ML IV SCH (16:00)
[2018-12-13] MEDS ORDERED: CUSTOM PERIPHERAL PN IV SCH (16:00)
--- NOTE | 2018-12-13 16:28 | Anesthesiology Consultation ---
Date of Service December 13, 2018 Assessment & Plan Chart Review Chart Review: Acceptable Risk for Surgery Consults Requested none History Surgery Operation Date: 12/12/18 08:30 Proposed Procedures p Flexible Sigmoidoscopy Dr Robbie Avalos Operation Date: 12/13/18 15:55 Proposed Procedures p Endoscopic Retrograde Cholangiopancreato Graciela Barney Operation Date: 12/14/18 09:00 Proposed Procedures p Endoscopic Retrograde Cholangiopancreato Graciela Barney Height/Weight Height: 4 ft 9 in Weight: 42.5 kg Allergies Allergy/AdvReac Type Severity Reaction Status Date / Time No Known Allergies Allergy Unverified 12/09/18 15:04 Medications Home Medications Medication Instructions Recorded Confirmed Last Taken ibuprofen 800 mg PO TID PRN 12/09/18 12/09/18 12/09/18 03:00 Active Medications Generic Name Dose Route Start Last Admin Trade Name Freq PRN Reason Stop Dose Admin Thiamine HCl 100 mg/ Syringe 10 mls @ 2 mls/min 12/13/18 09:00 12/13/18 09:20 IV 01/12/19 08:59 2 mls/min QAM CHARI Administration Piperacillin Sod/Tazobactam 115 mls @ 28.75 mls/hr 12/13/18 02:00 12/13/18 15:23 Sod 3.375 gm/ Dextrose IV 12/20/18 01:59 28.8 mls/hr Q12H CHARI Administration Protocol Lorazepam 0.5 mg 12/09/18 22:00 12/09/18 22:56 Ativan PO 01/08/19 21:59 0.5 mg HS PRN Administration Insomnia Tramadol HCl 50 mg 12/10/18 15:45 12/11/18 17:01 Ultram PO 01/09/19 15:44 50 mg Q4H PRN Administration Pain NPO Date Last Intake of Fluids: 12/10/18 Time Last Intake of Fluids: 20:00 Date Last Intake of Solids: 12/05/18 Time Last Intake of Solids: 18:00 Past Medical History Medical History CKD (chronic kidney disease) Low urine output Hypernatremia Renal insufficiency DVT prophylaxis Choledocholithiasis Common bile duct dilatation Adnexal mass Tachycardia Rectal bleeding Pancolitis Colitis (Chronic) Ulcerative colitis (Acute) Abdominal pain (Acute) Dehydration (Acute) Hypokalemia (Acute) Hypocalcemia (Acute) Dermoid tumor (Acute) Ulcerative colitis (Chronic) Past Surgical History Surgical History H/O colonoscopy (Chronic) Reported in s in [place] Social History Smoking Status: Never smoker Hx Alcohol Use: No Hx Substance Use: No Physical Exam Vital Signs Last Vital Signs Temp 36.6 C 12/13/18 15:52 Pulse 87 12/13/18 15:52 Resp 18 12/13/18 15:52 BP 136/92 12/13/18 15:52 Pulse Ox 97 12/13/18 15:52 Testing Laboratory Results 12/13/18 05:58 12/13/18 05:58 PT 11.5 Seconds (9.0-12.0) 12/09/18 15:26 INR 1.1 (0.9-1.1) 12/09/18 15:26 APTT 25.3 Seconds (21.0-31.0) 12/09/18 15:26 Urine Color [place] 12/13/18 11:30 Urine Appearance Turbid (Clear) A 12/13/18 11:30 Urine pH 5.0 (4.5-7.5) 12/13/18 11:30 Ur Specific [place] 1.037 (1.000-1.030) H 12/13/18 11:30 Urine Protein Trace (Negative) H 12/13/18 11:30 Urine Glucose (UA) Negative (Negative) 12/13/18 11:30 Urine Ketones Trace (Negative) H 12/13/18 11:30 Urine Nitrite Positive (Negative) A 12/13/18 11:30 Ur Leukocyte Esterase 1+ (Negative) H 12/13/18 11:30 Urine WBC (Auto) >30 /hpf (0-5) H 12/13/18 11:30 Urine RBC (Auto) 5-10 /hpf (0-4) H 12/13/18 11:30 U Hyaline Cast (Auto) 0 /lpf (0-5) 12/13/18 11:30 U Epithel Cells (Auto) >30 /lpf (0-5) H 12/13/18 11:30 Urine Bacteria (Auto) 1+ (Negative) H 12/13/18 11:30 12/13/18 09:05 WBC Smear - Final Stool 12/10/18 06:45 Urine Culture - Final Urine,Clean Catch No growth - less than 1,000 colonies/mL. 12/10/18 07:42 Aerobic Blood Culture - Preliminary Blood No growth in Aerobic bottle after 48 hours. Anaerobic Blood Culture - Final 12/10/18 07:32 Aerobic Blood Culture - Preliminary Blood No growth in Aerobic bottle after 48 hours. Anaerobic Blood Culture - Preliminary No growth in Anaerobic bottle after 48 hours. 12/09/18 14:51 WBC Smear - Final Stool
[2018-12-13] MEDS ORDERED: PROMETHAZINE HCL 12.5 MG in SODIUM CHLORIDE 0.9% 50 ML IV PRN (16:30)
[2018-12-13] MEDS ORDERED: DEXAMETHASONE SOD INJ 4 MG/ML VIAL IV PRN (16:30)
[2018-12-13] MEDS ORDERED: HYDROmorphone INJ 1 MG/ML SYRINGE IV PRN (16:30)
[2018-12-13] MEDS ORDERED: fentaNYL citrate 100 MCG/2 ML VIAL IV PRN (16:30)
[2018-12-13] MEDS ORDERED: ONDANSETRON INJ 2 MG/ML 2 ML VIAL IV PRN (16:30)
[2018-12-13] MEDS ORDERED: ATROPINE SULFATE 0.1 MG/ML 10ML SYR IV PRN (16:30)
[2018-12-13] MEDS ORDERED: ePHEDrine sulfate 50 MG/ML AMP IV PRN (16:30)
[2018-12-13] MEDS ORDERED: METOCLOPRAMIDE HCL INJ 5 MG/ML 2 ML VIAL IV PRN (16:30)
--- NOTE | 2018-12-13 16:32 | History & Physical Bridge Note ---
Date of Service December 13, 2018 History & Physical Bridge Note I have examined the patient, reviewed the History & Physical and in the interval since the performance of the History & Physical I have noted the following changes of clinical significance: Given the MRCP results and elevation of her liver associated enzymes we are concerned about underlying cholangitis and a proceeding with urgent ERCP today. I have also taken the liberty of consenting the patient for upper endoscopy if needed. Given that the patient appears to have had smoldering cholangitis over the previous few days I did discuss with the family about the potential increased risk the procedure and periprocedural complications. We discussed the risks of ERCP to include bleeding, infection, perforation, pancreatitis and failed biliary cannulation.
[2018-12-13] MEDS ORDERED: fentaNYL citrate 100 MCG/2 ML VIAL ONE (16:47)
[2018-12-13] MEDS ORDERED: INDOMETHACIN 50 MG SUPP PR STA (16:50)
[2018-12-13] MEDS ORDERED: SUCCINYLCHOLINE CHLORIDE 20 MG/ML 10 ML VIAL ONE (17:08)
[2018-12-13] MEDS ORDERED: PROPOFOL IV EMULSION 10 MG/ML 20 ML VIAL IV ONE (17:08)
[2018-12-13] MEDS ORDERED: ONDANSETRON INJ 2 MG/ML 2 ML VIAL ONE (17:10)
--- NOTE | 2018-12-13 17:30 | GI REPORT ---
Patient Name: Edwina Cunningham Procedure Date: 12/13/2018 5:19 PM Date of : 1935 Admit Type: Inpatient Age: 83 Gender: Female Attending MD: Stefani Barney DO Procedure: Upper GI endoscopy Providers: Stefani Barney DO Referring MD: Bina Spencer Do Indications: Epigastric abdominal pain Medicines: General Anesthesia Complications: No immediate complications. Estimated blood loss: Minimal. Estimated Blood Loss: Estimated blood loss was minimal. Procedure: Pre-Anesthesia Assessment: - Prior to the procedure, a History and Physical was performed, and patient medications, allergies and sensitivities were reviewed. The patient's tolerance of previous anesthesia was reviewed. - The alternatives, risks and benefits of the procedure were discussed at length with the patient's daughter. The patient's proxy verbalized understanding of the risks as well as the alternatives and wished to proceed with the procedure. - Pre-procedure physical examination revealed no contraindications to sedation. - ASA Grade Assessment: III - A patient with severe systemic disease. - After reviewing the risks and benefits, the patient was deemed in satisfactory condition to undergo the procedure. - The anesthesia plan was to use general anesthesia. - Immediately prior to administration of medications, the patient was re-assessed for adequacy to receive sedatives. - The heart rate, respiratory rate, oxygen saturations, blood pressure, adequacy of pulmonary ventilation, and response to care were monitored throughout the procedure. - The physical status of the patient was re-assessed after the procedure. After obtaining informed consent, the endoscope was passed under direct vision. Throughout the procedure, the patient's blood pressure, pulse, and oxygen saturations were monitored continuously. The Endoscope was introduced through the mouth, and advanced to the third part of duodenum. The upper GI endoscopy was accomplished without difficulty. The patient tolerated the procedure well. Findings: Moderately severe esophagitis with no bleeding was found in the lower third of the esophagus. A single 15 mm pedunculated polyp with no bleeding and no stigmata of recent bleeding was found in the cardia. Diffuse severe inflammation characterized by adherent blood, congestion (edema), friability and shallow ulcerations was found in the entire examined stomach. Many non-obstructing non-bleeding superficial duodenal ulcers with no stigmata of bleeding were found in the entire duodenum. The largest lesion was 5 mm in largest dimension. Impression: - Moderately severe reflux and erosive esophagitis. - A single gastric polyp. - Gastritis. - Multiple non-obstructing non-bleeding duodenal ulcers with no stigmata of bleeding. - No specimens collected. Recommendation: - [facility] for [facility] care. - Use Protonix (pantoprazole) 40 mg PO BID. - Use sucralfate suspension 1 gram PO QID for 1 week. Stefani Barney D.O. Stefani Barney, 12/13/2018 5:29:48 PM This report has been signed electronically. Note Initiated On: 12/13/2018 5:19 PM Number of Addenda: 0 I attest to the content of the Intraoperative Record and orders documented therein, exceptions below {[id number]}
--- NOTE | 2018-12-13 17:34 | GI REPORT ---
Patient Name: Edwina Cunningham Procedure Date: 12/13/2018 4:40 PM Date of : 1935 Admit Type: Inpatient Age: 83 Gender: Female Attending MD: Stefani Barney DO Procedure: ERCP Providers: Stefani Barney DO Referring MD: Bina Spencer Do Indications: Abdominal pain of suspected biliary origin, Suspected ascending cholangitis Medicines: General Anesthesia Complications: No immediate complications. Estimated blood loss: Minimal. Estimated Blood Loss: Estimated blood loss was minimal. Procedure: Pre-Anesthesia Assessment: - Prior to the procedure, a History and Physical was performed, and patient medications, allergies and sensitivities were reviewed. The patient's tolerance of previous anesthesia was reviewed. - The risks and benefits of the procedure and the sedation options and risks were discussed with the patient. All questions were answered and informed consent was obtained. - Patient identification and proposed procedure were verified prior to the procedure by the physician, the nurse and the mailroom assistant. The procedure was verified in the procedure room. - Pre-procedure physical examination revealed no contraindications to sedation. - ASA Grade Assessment: III - A patient with severe systemic disease. - After reviewing the risks and benefits, the patient was deemed in satisfactory condition to undergo the procedure. - The anesthesia plan was to use general anesthesia. - Immediately prior to administration of medications, the patient was re-assessed for adequacy to receive sedatives. - Sedation was administered by an anesthesia professional. General anesthesia was attained. - The heart rate, respiratory rate, oxygen saturations, blood pressure, adequacy of pulmonary ventilation, and response to care were monitored throughout the procedure. - The physical status of the patient was re-assessed after the procedure. After obtaining informed consent, the scope was passed under direct vision. Throughout the procedure, the patient's blood pressure, pulse, and oxygen saturations were monitored continuously. The Scope was introduced through the mouth, and advanced to the duodenum and used to inject contrast into the bile duct. The ERCP was accomplished without difficulty. The patient tolerated the procedure well. Findings: The wooden tank erector film was normal. The esophagus was successfully intubated under direct vision without detailed examination of the pharynx, larynx, and associated structures, and upper GI tract. The upper GI tract was grossly normal. The major papilla was congested. The bile duct was deeply cannulated with the short-nosed traction sphincterotome and guidewire. Contrast was injected. I personally interpreted the bile duct images. Contrast extended to the entire biliary tree. The entire biliary tree was moderately dilated. The largest diameter was 10 mm. The biliary orifice was stenotic. This appeared benign. The lower third of the main bile duct contained multiple stones. Biliary sphincterotomy was made with a monofilament Fusion OMNI sphincterotome using ERBE electrocautery. There was no post-sphincterotomy bleeding. To discover objects, the biliary tree was swept with a 15 mm balloon starting at the bifurcation. Three stones were removed. No stones remained. Pus was swept from the duct. One 10 Fr by 8 cm biliary stent with a single external flap and a single internal flap was placed 8 cm into the common bile duct. Bile and pus flowed through the stent. The stent was in good position. The endoscope was withdrawn from the patient. Indomethacin 100 mg was given via suppository to decrease the risk of post-ERCP pancreatitis (PEP). Impression: - The major papilla appeared congested. - Biliary papillary stenosis, benign. - The entire biliary tree was moderately dilated. - Choledocholithiasis was found. Complete removal was accomplished by biliary sphincterotomy and balloon extraction. - A biliary sphincterotomy was performed. - The biliary tree was swept and pus was found. - One biliary stent was placed into the common bile duct. - Indomethacin given to decrease risk of post-ERCP pancreatitis. Recommendation: - Avoid aspirin and nonsteroidal anti-inflammatory medicines for 5 days. - Use broad spectrum antibiotics for 2 weeks. - Repeat ERCP in 6 weeks to remove stent. - Cholecystectomy per general surgery Marilyn Jaurez DO 12/13/2018 5:33:29 PM This report has been signed electronically. Note Initiated On: 12/13/2018 4:40 PM Number of Addenda: 0 I attest to the content of the Intraoperative Record and orders documented therein, exceptions below {[id number]}
--- NOTE | 2018-12-13 17:35 | Post Operative Brief Note ---
Immediate Post Op Note v1 Date of Surgery December 13, 2018 Pre & Post Diagnosis Indication: cholangitis Post-op: cholangitis, gallstones, gastritis, esophagitis and duodenal ulcers Procedure Operation Date: 12/13/18 15:55 Actual Procedures p Endoscopic Retrograde Cholangiopancreato with Stent Insertion, EGD, Sphincterotomy(Not Applicable) z ;upper endosopy- Stefani Barney Operation Date: 12/14/18 09:00 <No data on this case meets the specified criteria> Surgeon Stefani Barney Track Service Person none Estimated Blood Loss 0 Findings Consistent with Post-Op Diagnosis
--- NOTE | 2018-12-13 17:36 | Fluoroscopy Report ---
[place] ERCP biliary ductal CLINICAL HISTORY: Choledocholithiasis COMPARISON STUDY: MRCP dated 12/13/2018 FLUOROSCOPY TIME: 32 seconds. NUMBER OF FLUOROSCOPIC IMAGES: 7 FINDINGS: Intraoperative fluoroscopic spot images from the [employer] are provided for interpretation. The c ommon bile duct was cannulated and contrast was instilled. There were distal common bile duct filling defects consistent with calculi. A sphincterotomy appears to have been performed. A balloon catheter was swept through the duct. A biliary enteric stent was placed. There are multiple gallbladder filli ng defects consistent with gallbladder calculi IMPRESSION: 1. Cholelithiasis 2. Choledocholithiasis 3. The common bile duct was swept with a balloon catheter. A biliary enteric stent was placed Electronically signed by: Carlos Fairbanks M.D. 12/13/2018 5:34 PM
--- NOTE | 2018-12-13 19:07 | Anesthesiology Progress Note ---
Date of Service December 13, 2018 Anesthesia Post Procedure Vital Signs Vital Signs: Temp Pulse Pulse Pulse Resp BP BP 12/13/18 18:46 36.4 C L 77 16 12/13/18 18:26 80 18 12/13/18 18:25 83 15 137/76 12/13/18 18:22 36.4 C L 12/13/18 18:21 81 13 12/13/18 18:20 82 11 L 139/76 12/13/18 18:16 85 16 127/99 12/13/18 18:15 82 19 12/13/18 18:11 84 18 12/13/18 18:10 85 16 133/82 12/13/18 18:06 86 17 12/13/18 18:05 88 21 135/76 12/13/18 18:01 87 17 12/13/18 18:00 88 14 133/80 12/13/18 17:56 91 H 17 12/13/18 17:55 92 H 13 137/80 12/13/18 17:51 94 H 13 12/13/18 17:50 95 H 21 127/81 12/13/18 17:46 98 H 18 12/13/18 17:45 100 H 20 120/77 12/13/18 17:41 102 H 24 12/13/18 17:40 36.1 C L 102 H 103 H 19 127/78 127/78 12/13/18 15:52 36.6 C 87 18 12/13/18 12:04 36.7 C 109 H 16 108/71 12/13/18 07:49 36.8 C 102 H 16 126/62 12/13/18 03:24 36.9 C 102 H 20 131/89 12/12/18 23:58 96 H 12/12/18 23:55 36.5 C 88 20 BP Pulse Ox 12/13/18 18:46 132/73 96 12/13/18 18:26 95 12/13/18 18:25 97 12/13/18 18:22 99 12/13/18 18:21 97 12/13/18 18:20 98 12/13/18 18:16 98 12/13/18 18:15 99 12/13/18 18:11 97 12/13/18 18:10 98 12/13/18 18:06 97 12/13/18 18:05 99 12/13/18 18:01 100 12/13/18 18:00 100 12/13/18 17:56 100 12/13/18 17:55 100 12/13/18 17:51 100 12/13/18 17:50 100 12/13/18 17:46 100 12/13/18 17:45 100 12/13/18 17:41 12/13/18 17:40 99 12/13/18 15:52 136/92 97 12/13/18 12:04 96 12/13/18 07:49 95 12/13/18 03:24 94 12/12/18 23:58 12/12/18 23:55 128/75 98 Pain Intensity Left Abdomen: Pain Intensity: 3 Transfer of Care Handoff Completed per policy Notes Mental Status: alert / awake / arousable and participated in evaluation Patient Amnestic to Procedure: Yes Nausea / Vomiting: adequately controlled Pain: adequately controlled Airway Patency, RR, SpO2: stable & adequate BP & HR: stable & adequate Hydration State: stable & adequate Anesthetic Complications: no major complications apparent
[2018-12-13] MEDS: SUCRALFATE 1 GM/10 ML UDC PO SCH (21:35)
[2018-12-13] MEDS: PANTOprazole 40 MG TAB PO SCH (21:36)
[2018-12-14] MEDS: PIPERACILLIN/TAZOBACTAM 3.375 GM in DEXTROSE 5% 100 ML IV SCH ×2 (02:11→14:27)
[2018-12-14] MEDS ORDERED: ONDANSETRON INJ 2 MG/ML 2 ML VIAL IV PRN (04:59)
[2018-12-14] MEDS: PANTOprazole 40 MG in SYRINGE 0 ML IV SCH ×2 (06:29→21:09)
[2018-12-14] MEDS: SUCRALFATE 1 GM/10 ML UDC PO SCH ×4 (07:31→21:09)
[2018-12-14 07:32] LABS: Hematocrit (blood only) 37.3 % (37-47); Hemoglobin 12.8 g/dL (12.0-16.0); Mean Corpuscular Hgb Conc 34.3 g/dL (32-36); Mean Corpuscular Volume 86.7 fL (80-100); Mean Platelet Volume 10.1 fL (7.4-10.4); Platelet Count 244 K/uL (130-400); RDW Coefficient of Variation 15.6 % (11.5-14.5); White Blood Count 14.83 K/uL (4.8-10.8)
[2018-12-14 08:05] LABS: Albumin Level 1.6 gm/dl (3.4-5.0); BUN Creatinine Ratio 28.1 (10-20); Bilirubin Direct 0.4 mg/dl (0-0.2); Calcium 8.1 mg/dl (8.5-10.1); Creatinine Clr Calc Pharmacy 11.2 ml/min; Est GFR (African American) 21.9; Est GFR (Non-African American) 18.9; Potassium 4.3 mmol/L (3.5-5.1)
[2018-12-14 08:06] LABS: Basophils # (auto) 0.02 K/uL (0-0.2); Basophils % (auto) 0.1 %; Dohle Bodies 2+; Echinocytes 2+; Eosinophils # (auto) 0.08 K/uL (0-0.5); Eosinophils % (auto) 0.5 %; Immature Granulocytes # (auto) 0.08 K/uL (0.00-0.02); Immature Granulocytes % (auto) 0.5 %; Lymphocytes % (auto) 8.8 %; Monocytes # (auto) 0.56 K/uL (0.11-0.59); Monocytes % (auto) 3.8 %; Neutrophils # (auto) 12.79 K/uL (1.4-6.5); Neutrophils % (auto) 86.3 %; Toxic Granulation 2+
[2018-12-14 08:17] LABS: Bilirubin,Total 0.7 mg/dl (0.2-1); Total Protein 4.2 gm/dl (6.4-8.2)
[2018-12-14] MEDS: THIAMINE HCL 100 MG in SYRINGE 9 ML IV SCH (08:29)
--- NOTE | 2018-12-14 08:39 | Surgery Progress Note ---
Date of Service December 14, 2018 Assessment & Plan (1) Choledocholithiasis: POD1 ERCP, stone removal/stenting WBC improved, afebrile seen with Dr. Pacheco plan for cholecystectomy in a few weeks once her overall condition improves she may be reluctant to have surgery, but recommend cholecystectomy before stent is removed Subjective getting back to baseline per daughter Results & Data Vital Signs (Past 12 Hours) Vital Signs Temp Pulse Pulse Resp BP BP Pulse Ox 12/14/18 07:48 36.5 C 86 18 120/67 98 12/14/18 03:59 36.4 C L 75 18 135/77 97 12/13/18 23:42 37 C 84 18 149/58 H 97 12/13/18 23:34 77 12/13/18 22:32 36.6 C 86 16 145/79 H 98 12/13/18 21:00 36.6 C 87 16 133/76 97
--- NOTE | 2018-12-14 09:16 | Gastroenterology Progress Note ---
Date of Service December 14, 2018 Assessment & Plan (1) Choledocholithiasis: (2) Cholangitis: The patient was treated for suspected cholangitis yesterday with ERCP and biliary decompression. The labs appear to be improved this morning. I would suggest that we continue the patient on broad-spectrum antibiotic coverage and await surgical input with regard to timing of cholecystectomy. She will ultimately need a repeat ERCP in 6 to 8 weeks. During the exam we did note severe gastritis and I have started the patient on Protonix twice daily in addition to a Carafate slurry 4 times daily. (3) Ulcerative colitis: The patient continues to have problems from her ulcerative colitis and has numerous liquid bowel movements per day. As we have now decompressed her biliary tree and are treating the cholangitis more appropriately I think it would be time to add a steroid to help with the ulcerative colitis flare. Plan Methylprednisolone every 8 hours Subjective The patient underwent urgent ERCP yesterday evening for suspected cholangitis. The procedure was successful as we removed several stones and placed a biliary stent. This morning she does appear improved and is able to converse more with her mother who is acting as healthcare interpreter today. She notes that she is still having a large amount of liquid stool numerous times per day. Review of Systems Constitutional: no sweats Eyes: no diplopia Respiratory: no change in sputum and no hemoptysis Cardiovascular: no chest pain with activity Gastrointestinal: + abdominal pain Results & Data Vital Signs (Past 12 Hours) Vital Signs Temp Pulse Pulse Resp BP BP Pulse Ox 12/14/18 07:48 36.5 C 86 18 120/67 98 12/14/18 03:59 36.4 C L 75 18 135/77 97 12/13/18 23:42 37 C 84 18 149/58 H 97 12/13/18 23:34 77 12/13/18 22:32 36.6 C 86 16 145/79 H 98 Laboratory Results Laboratory Results - last 24 hr 12/13/18 12/13/18 12/13/18 09:05 11:30 19:47 WBC RBC Hgb Hct MCV MCH MCHC RDW Std Deviation RDW Coeff of Yasmany Plt Count MPV Immature Gran % (Auto) Neut % (Auto) Lymph % (Auto) [place] % (Auto) Eos % (Auto) Baso % (Auto) Immature Gran # (Auto) Neut # (Auto) Lymph # (Auto) [place] # (Auto) Eos # (Auto) Baso # (Auto) Toxic Granulation Dohle Bodies Echinocytes Sodium Potassium Chloride Carbon Dioxide Anion Gap BUN Creatinine Est Cr Clr Drug Dosing Est GFR ( Amer) Est GFR (Non-Af Amer) BUN/Creatinine Ratio Glucose POC Glucose 76 Calcium Phosphorus Total Bilirubin Direct Bilirubin AST ALT Alkaline Phosphatase Total Protein Albumin Lipase Urine Color [place] Urine Appearance Turbid A Urine pH 5.0 Ur Specific [place] 1.037 H Urine Protein Trace H Urine Glucose (UA) Negative Urine Ketones Trace H Urine Blood Trace H Urine Nitrite Positive A Urine Bilirubin Negative Urine Urobilinogen Negative Ur Leukocyte Esterase 1+ H Urine WBC (Auto) >30 H Urine RBC (Auto) 5-10 H U Hyaline Cast (Auto) 0 U Epithel Cells (Auto) >30 H Urine Bacteria (Auto) 1+ H Ur Renal Epithelial Cell Not Reportable Urine Yeast Not Reportable Stl C. diff Tox B Gene Negative Cdiff Gene 12/14/18 12/14/18 12/14/18 00:04 06:33 07:08 WBC RBC Hgb Hct MCV MCH MCHC RDW Std Deviation RDW Coeff of Yasmany Plt Count MPV Immature Gran % (Auto) Neut % (Auto) Lymph % (Auto) [place] % (Auto) Eos % (Auto) Baso % (Auto) Immature Gran # (Auto) Neut # (Auto) Lymph # (Auto) [place] # (Auto) Eos # (Auto) Baso # (Auto) Toxic Granulation Dohle Bodies Echinocytes Sodium 139 Potassium 4.3 Chloride 109 H Carbon Dioxide 24 Anion Gap 6.0 BUN 65 H Creatinine 2.31 H D Est Cr Clr Drug Dosing 11.2 Est GFR ( Amer) 21.9 Est GFR (Non-Af Amer) 18.9 BUN/Creatinine Ratio 28.1 H Glucose 130 H POC Glucose 103 H 114 H Calcium 8.1 L Phosphorus 3.0 Total Bilirubin 0.7 Direct Bilirubin 0.4 H AST 1395 H ALT 1303 H Alkaline Phosphatase 541 H Total Protein 4.2 L Albumin 1.6 L Lipase Urine Color Urine Appearance Urine pH Ur Specific [place] Urine Protein Urine Glucose (UA) Urine Ketones Urine Blood Urine Nitrite Urine Bilirubin Urine Urobilinogen Ur Leukocyte Esterase Urine WBC (Auto) Urine RBC (Auto) U Hyaline Cast (Auto) U Epithel Cells (Auto) Urine Bacteria (Auto) Ur Renal Epithelial Cell Urine Yeast Stl C. diff Tox B Gene 12/14/18 12/14/18 07:08 07:08 WBC 14.83 H RBC 4.30 Hgb 12.8 Hct 37.3 MCV 86.7 MCH 29.8 MCHC 34.3 RDW Std Deviation 49.0 H RDW Coeff of Yasmany 15.6 H Plt Count 244 MPV 10.1 Immature Gran % (Auto) 0.5 Neut % (Auto) 86.3 Lymph % (Auto) 8.8 [place] % (Auto) 3.8 Eos % (Auto) 0.5 Baso % (Auto) 0.1 Immature Gran # (Auto) 0.08 H Neut # (Auto) 12.79 H Lymph # (Auto) 1.30 [place] # (Auto) 0.56 Eos # (Auto) 0.08 Baso # (Auto) 0.02 Toxic Granulation 2+ Dohle Bodies 2+ Echinocytes 2+ Sodium Cancelled Potassium Cancelled Chloride Cancelled Carbon Dioxide Cancelled Anion Gap Cancelled BUN Cancelled Creatinine Cancelled Est Cr Clr Drug Dosing Cancelled Est GFR ( Amer) Cancelled Est GFR (Non-Af Amer) Cancelled BUN/Creatinine Ratio Cancelled Glucose Cancelled POC Glucose Calcium Cancelled Phosphorus Total Bilirubin Cancelled Direct Bilirubin Cancelled AST Cancelled ALT Cancelled Alkaline Phosphatase Cancelled Total Protein Cancelled Albumin Cancelled Lipase 218 Urine Color Urine Appearance Urine pH Ur Specific [place] Urine Protein Urine Glucose (UA) Urine Ketones Urine Blood Urine Nitrite Urine Bilirubin Urine Urobilinogen Ur Leukocyte Esterase Urine WBC (Auto) Urine RBC (Auto) U Hyaline Cast (Auto) U Epithel Cells (Auto) Urine Bacteria (Auto) Ur Renal Epithelial Cell Urine Yeast Stl C. diff Tox B Gene (1) Ulcerative colitis Digestive disease complication type: with rectal bleeding Ulcerative colitis location: unspecified ulcerative colitis location Qualified Code(s): K51.911 - Ulcerative colitis, unspecified with rectal bleeding
--- NOTE | 2018-12-14 10:26 | Hospitalist Progress Note ---
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 She is improved after stent placement and removal of stones yesterday and is on Zosyn. Clinically she is more awake and having less pain today. Stent exchange in 6 weeks. General surgery to advise on removal of gallbladder for visualized cholelithiasis. (4) Choledocholithiasis: Plan as above (5) Transaminitis: Likely secondary to acute cholangitis. Still elevated. Continue to trend. Overall clinically improved. Continue Zosyn. (6) Pancolitis: Pancolitis thought secondary to IBD flare with presumed ulcerative colitis. Recent flexible sigmoidoscopy status post biopsy with pathology still pending. Started on Solu-Medrol this morning. Continue to monitor over the next 48 hours for response. (7) HAP (hospital-acquired pneumonia): Cont Zosyn, continues to oxygenate well on room air. She has had 1 week of significant fatigue posing an aspiration risk. She is more awake and alert today but not having much of an appetite. Will ask speech pathology to see her to rule out aspiration as she is still significantly weak generally. (8) Low urine output: UOP still low overnight but recently started PPN 12 hours ago, and she is clinically improved. 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 May need to add additional IVF. Will see where she stands on lab work in the morning. (9) Renal insufficiency: Uncertain baseline as no prior records. Nephrology following, continue to monitor lab work. (10) Tachycardia: Episodes of tachycardia have occurred throughout the hospitalization. After informal discussion with cardiology, there is no evidence of atrial fibrillation on equipment monitor phototypesetting. This is more consistent with a burst of atrial tachycardia in the setting of her illness is appropriate. At this time no need for beta-blockers. (11) Severe malnutrition: PPN started yesterday as a temporizing measure until she is able to tolerate PO again. Appreciate nutrition involvement and recommendations. (12) Adnexal mass: She has lost approximately half her body weight over the last 6 months. She was seen to have a dermoid cyst that is 11 cm in diameter on CT imaging in the ER yesterday. Per gynecology we will not pursue any surgical intervention at this time given her age and comorbidities. This was explained to the family were understanding of this. (13) DVT prophylaxis: Heparin Full Code Dispo-cont hospitalization, for now cont telemetry. [facility] Results & Data Vital Signs (Past 12 Hours) Vital Signs Temp Pulse Pulse Resp BP BP Pulse Ox 12/14/18 07:48 36.5 C 86 18 120/67 98 12/14/18 03:59 36.4 C L 75 18 135/77 97 12/13/18 23:42 37 C 84 18 149/58 H 97 12/13/18 23:34 77 12/13/18 22:32 36.6 C 86 16 145/79 H 98 Laboratory Results Short CBC 12/14/18 Range/Units 07:08 WBC 14.83 H (4.8-10.8) K/uL Hgb 12.8 (12.0-16.0) g/dL Hct 37.3 (37-47) % Plt Count 244 (130-400) K/uL BMP 12/14/18 12/14/18 07:08 07:08 Sodium 139 Cancelled Potassium 4.3 Cancelled Chloride 109 H Cancelled Carbon Dioxide 24 Cancelled BUN 65 H Cancelled Creatinine 2.31 H D Cancelled Glucose 130 H Cancelled Calcium 8.1 L Cancelled Liver Function 12/14/18 12/14/18 Range/Units 07:08 07:08 Total Bilirubin 0.7 Cancelled (0.2-1) mg/dl Direct Bilirubin 0.4 H Cancelled (0-0.2) mg/dl AST 1395 H Cancelled (15-37) U/L ALT 1303 H Cancelled (12-78) U/L Alkaline Phosphatase 541 H Cancelled (45-117) U/L Albumin 1.6 L Cancelled (3.4-5.0) gm/dl Urine 12/13/18 Range/Units 11:30 Urine Color [place] Urine Appearance Turbid A (Clear) Urine pH 5.0 (4.5-7.5) Ur Specific [place] 1.037 H (1.000-1.030) Urine Protein Trace H (Negative) Urine Glucose (UA) Negative (Negative) Medications Administered Current Inpatient Medications Heparin Sodium (Porcine) (Heparin Sodium (Porcine)) 5,000 units SQ Q12 CHARI Stop: 01/13/19 08:59 Thiamine HCl 100 mg/ Syringe 10 mls @ 2 mls/min IV QAM CHARI Stop: 01/12/19 08:59 Last Admin: 12/14/18 08:29 Dose: 2 mls/min Documented by: Acetaminophen 500 mg/ EMPTY (BAG) 50 mls @ 200 mls/hr IV Q4H PRN PRN Reason: Pain Stop: 01/11/19 19:44 Piperacillin Sod/Tazobactam (Sod 3.375 gm/ Dextrose) 115 mls @ 28.75 mls/hr IV Q12H [facility]; Protocol Stop: 12/20/18 01:59 Last Infusion: 12/14/18 06:11 Dose: Infused Documented by: Dextrose (D10w) 1,000 mls @ 0 mls/hr IV .Q0M [facility] Stop: 01/12/19 15:59 Pantoprazole Sodium 40 mg/ (Syringe) 10 mls @ 5 mls/min IV BID@0900,2100 [facility] Stop: 01/13/19 04:59 Last Admin: 12/14/18 06:29 Dose: 5 mls/min Documented by: Methylprednisolone 10 mg/ (Syringe) 0.25 mls @ 1.5 mls/min IV TID [facility] Stop: 01/13/19 13:59 Lorazepam (Ativan) 0.5 mg PO HS PRN PRN Reason: Insomnia Stop: 01/08/19 21:59 Last Admin: 12/09/18 22:56 Dose: 0.5 mg Documented by: Miscellaneous Information (Pharmacy Tpn/Ppn Consult Active) 1 ea N/A UD PRN PRN Reason: Consult Stop: 01/11/19 20:41 Miscellaneous Information (Consult) 1 ea N/A UD PRN PRN Reason: Consult Stop: 01/12/19 00:22 Nutrition (Parenteral) (Custom Peripheral Pn) 1 bag IV TODAY@1600 [facility]; Protocol Stop: 12/14/18 15:59 Last Admin: 12/13/18 19:30 Dose: 1 bag Documented by: Ondansetron HCl (Zofran) 4 mg IV Q8H PRN PRN Reason: n/v Stop: 01/13/19 04:59 Pantoprazole Sodium (Protonix) 40 mg PO BID [facility] Stop: 01/12/19 20:59 Last Admin: 12/13/18 21:36 Dose: Not Given Documented by: Sucralfate (Carafate) 1 gm PO ACHS CHARI Stop: 01/12/19 20:59 Last Admin: 12/14/18 07:31 Dose: Not Given Documented by: Tramadol HCl (Ultram) 50 mg PO Q4H PRN PRN Reason: Pain Stop: 01/09/19 15:44 Last Admin: 12/11/18 17:01 Dose: 50 mg Documented by:
[2018-12-14] MEDS: HEPARIN SOD 5,000 UNIT/0.5 ML VIAL SQ SCH ×3 (10:31→21:10)
--- NOTE | 2018-12-14 14:05 | Anesthesiology Progress Note ---
Date of Service December 14, 2018 Anesthesia Post Procedure Vital Signs Vital Signs: Temp Pulse Pulse Pulse Resp BP BP 12/14/18 11:58 36.5 C 75 16 12/14/18 07:48 36.5 C 86 18 12/14/18 03:59 36.4 C L 75 18 135/77 12/13/18 23:42 37 C 84 18 149/58 H 12/13/18 23:34 77 12/13/18 22:32 36.6 C 86 16 145/79 H 12/13/18 21:00 36.6 C 87 16 133/76 12/13/18 19:48 36.4 C L 79 16 151/87 H 12/13/18 19:17 36.2 C L 78 16 130/76 12/13/18 18:46 36.4 C L 77 16 12/13/18 18:26 80 18 12/13/18 18:25 83 15 137/76 12/13/18 18:22 36.4 C L 12/13/18 18:21 81 13 12/13/18 18:20 82 11 L 139/76 12/13/18 18:16 85 16 127/99 12/13/18 18:15 82 19 12/13/18 18:11 84 18 12/13/18 18:10 85 16 133/82 12/13/18 18:06 86 17 12/13/18 18:05 88 21 135/76 12/13/18 18:01 87 17 12/13/18 18:00 88 14 133/80 12/13/18 17:56 91 H 17 12/13/18 17:55 92 H 13 137/80 12/13/18 17:51 94 H 13 12/13/18 17:50 95 H 21 127/81 12/13/18 17:46 98 H 18 12/13/18 17:45 100 H 20 120/77 12/13/18 17:41 102 H 24 12/13/18 17:40 36.1 C L 102 H 103 H 19 127/78 127/78 12/13/18 15:52 36.6 C 87 18 BP Pulse Ox 12/14/18 11:58 131/76 97 12/14/18 07:48 120/67 98 12/14/18 03:59 97 12/13/18 23:42 97 12/13/18 23:34 12/13/18 22:32 98 12/13/18 21:00 97 12/13/18 19:48 95 12/13/18 19:17 96 12/13/18 18:46 132/73 96 12/13/18 18:26 95 12/13/18 18:25 97 12/13/18 18:22 99 12/13/18 18:21 97 12/13/18 18:20 98 12/13/18 18:16 98 12/13/18 18:15 99 12/13/18 18:11 97 12/13/18 18:10 98 12/13/18 18:06 97 12/13/18 18:05 99 12/13/18 18:01 100 12/13/18 18:00 100 12/13/18 17:56 100 12/13/18 17:55 100 12/13/18 17:51 100 12/13/18 17:50 100 12/13/18 17:46 100 12/13/18 17:45 100 12/13/18 17:41 12/13/18 17:40 99 12/13/18 15:52 136/92 97 Pain Intensity Left Abdomen: Pain Intensity: 3 Transfer of Care Handoff Completed per policy Notes Mental Status: alert / awake / arousable and participated in evaluation Patient Amnestic to Procedure: Yes Nausea / Vomiting: adequately controlled Pain: adequately controlled Airway Patency, RR, SpO2: stable & adequate BP & HR: stable & adequate Hydration State: stable & adequate Anesthetic Complications: no major complications apparent
[2018-12-14] MEDS: methylPREDNISolone 10 MG in SYRINGE 0 ML IV SCH ×2 (14:27→21:09)
[2018-12-14] MEDS ORDERED: CUSTOM PERIPHERAL PN IV SCH (16:00)
[2018-12-14] MEDS ORDERED: SODIUM CHLORIDE 0.9% 1000ML 1,000 ML IV SCH (17:30)
[2018-12-15] MEDS: PIPERACILLIN/TAZOBACTAM 3.375 GM in DEXTROSE 5% 100 ML IV SCH ×2 (01:46→15:11)
[2018-12-15] MEDS: SUCRALFATE 1 GM/10 ML UDC PO SCH ×4 (09:05→20:56)
[2018-12-15] MEDS: HEPARIN SOD 5,000 UNIT/0.5 ML VIAL SQ SCH ×2 (09:06→20:57)
[2018-12-15] MEDS: PANTOprazole 40 MG in SYRINGE 0 ML IV SCH ×2 (09:06→20:56)
[2018-12-15] MEDS: methylPREDNISolone 10 MG in SYRINGE 0 ML IV SCH ×3 (09:06→20:56)
[2018-12-15] MEDS: THIAMINE HCL 100 MG in SYRINGE 9 ML IV SCH (09:09)
[2018-12-15 09:16] LABS: Hematocrit (blood only) 36.1 % (37-47); Hemoglobin 12.5 g/dL (12.0-16.0); Mean Corpuscular Hgb Conc 34.6 g/dL (32-36); Mean Platelet Volume 10.4 fL (7.4-10.4); Platelet Count 212 K/uL (130-400); RDW Coefficient of Variation 15.5 % (11.5-14.5); RDW Standard Deviation 47.1 fL (36.4-46.3); White Blood Count 8.44 K/uL (4.8-10.8)
[2018-12-15 09:34] LABS: BUN Creatinine Ratio 40.5 (10-20); Calcium 8.1 mg/dl (8.5-10.1); Creatinine Clr Calc Pharmacy 17.2 ml/min; Est GFR (African American) 31.8; Est GFR (Non-African American) 27.4; Phosphorus 2.9 mg/dl (2.5-4.9); Potassium 4.6 mmol/L (3.5-5.1)
[2018-12-15 09:37] LABS: Albumin Level 1.5 gm/dl (3.4-5.0); BUN Creatinine Ratio 40.4 (10-20); C Reactive Protein 3.06 mg/dl (0-0.29); Calcium 8.1 mg/dl (8.5-10.1); Creatinine Clr Calc Pharmacy 17.6 ml/min; Est GFR (African American) 32.7; Est GFR (Non-African American) 28.2; Potassium 4.5 mmol/L (3.5-5.1)
[2018-12-15 09:47] LABS: Albumin Globulin Ratio 0.5 (0.9-2); Bilirubin Direct 0.4 mg/dl (0-0.2); Bilirubin,Total 0.8 mg/dl (0.2-1); Globulin 2.9 gm/dl (2.5-4.0); Total Protein 4.4 gm/dl (6.4-8.2)
--- NOTE | 2018-12-15 11:48 | Gastroenterology Progress Note ---
Date of Service December 15, 2018 Assessment & Plan (1) Cholangitis: Continue Zosyn. Advance to full liquids po. Present on Admission?: Yes (2) Pancolitis: Encouraged family to consider a TNF. Explained the indication (severe colitis), the risks (increased risks of infection as it causes immune suppression). Explained that this would be prescribed as an OP after discharge, after insurance prior-authorization. Continue methylprednisolone 10mg TID. Present on Admission?: Yes Supervising Physician Co-Signing Physician Notes I saw and evaluated the patient. Her labs continue to slowly improve and her white blood cell count is now within normal limits. I would suggest continuing the IV steroids for the present time. We will likely transition this to oral steroids in a few days. Please advance her diet as tolerated. Subjective Mr. Cunningham is an 83 yr old female with previously untreated UC, now on steroids (methylprednisone 10mg IV TID) for UC who had CT and MRCP with CBD stone, underwent ERCP on 12/13 with sphincterotomy and sweeping of the bile duct for removal of stones. Today: 5 loose brown (no blood BMs today). No leukocytosis or fevers. Very restful. During exam denied abdominal pain. Daughter and Granddaughter at the bedside. Review of Systems Constitutional: + fatigue, + weakness and + weight loss Respiratory: no cough, no dyspnea and no wheezing Cardiovascular: no chest pain, no syncope and no edema Gastrointestinal: + diarrhea/loose stools; no abdominal pain, no nausea and no vomiting Neurologic: + confusion; no tremor(s) and no dizziness Hematologic / Lymphatic: + unexplained weight loss Allergy / Immunological: no lip swelling, no throat swelling, no cough and no dyspnea Physical Exam Constitutional: WD/WN, vitals as above + thin and + language barrier (Translation by family members) Eyes: PERRL, conjunctivae normal, anicteric sclerae ENMT: external ear and nose normal, oropharynx normal Neck: trachea midline, no thyromegaly Respiratory: normal respiratory effort, lungs clear to auscultation Cardiovascular: RRR, no murmur, no edema Gastrointestinal (Abdomen): Inspection/Auscultation: + hypoactive bowel sounds; abdomen not distended Percussion/Palpation: abdomen soft; abdomen nontender Skin: no rashes, warm and dry Neurologic: PERRL, EOMI, accommodation nl, no face palsy, no dysarthria Psychiatric: Orientation: alert (wakens easily, then alert) Speech: normal rate/rhythm/volume of speech Results & Data Vital Signs (Past 12 Hours) Vital Signs Temp Pulse Pulse Resp BP BP Pulse Ox 12/15/18 10:56 36.4 C L 62 18 130/77 97 12/15/18 08:00 75 12/15/18 07:35 36.4 C L 60 17 154/79 H 95 12/15/18 04:13 36.4 C L 73 19 144/80 H [address] 12/09: 1. 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 2.2 cm focus of fat within the right upper quadrant suggests minimal spontaneous rupture of the dermoid. Mild diffuse mesenteric infiltration is nonspecific and a chemical peritonitis cannot be excluded. Gynecologic consultation is recommended. Findings discussed with Dr. Cruz at time of dictation. 2. Moderate wall thickening of the colon and rectum which represents a nonspecific pancolitis. No abscess or free air. 3. Cholelithiasis. 4. Suspected small common bile duct calculi with mild dilatation of the common bile duct. MRCP 12/13/18: 1. Cholelithiasis 2. 2 common bile duct calculi are visualized, the largest of which measures 5 mm 3. No evidence of pancreatic ductal dilatation Flex Sig to 20cm by Dr. Avalos 12/12: severe, continuous colitis 4. 7 mm common bile duct 5. Mild diffuse colonic wall thickening. ERCP 12/13/18: 1. Cholelithiasis 2. Choledocholithiasis 3. The common bile duct was swept with a balloon catheter. A biliary enteric stent was placed Flex Sig
--- NOTE | 2018-12-15 14:12 | Progress Note ---
Date of Service December 14, 2018 Supervising Physician Co-Signing Physician Notes I saw and evaluated the patient. I had a long discussion with the patient's family who was at her bedside. She does appear to be better today but did have some confusion with the high-dose steroids this morning. Her bowel habits seem to be solidifying a little today. She is no longer passing hematochezia and her white blood cell count is much improved. Recommendations Continue with IV hydration and steroids Continue with antibiotics given history of cholangitis for 2 weeks Advance diet to full liquid diet today Pending bowel habits will likely transition to oral steroids in the next few days per Results & Data Vital Signs (Past 12 Hours) Vital Signs Temp Pulse Pulse Resp BP BP Pulse Ox 12/14/18 07:48 36.5 C 86 18 120/67 98 12/14/18 03:59 36.4 C L 75 18 135/77 97 12/13/18 23:42 37 C 84 18 149/58 H 97 12/13/18 23:34 77 12/13/18 22:32 36.6 C 86 16 145/79 H 98
[2018-12-15] MEDS ORDERED: CUSTOM PERIPHERAL PN IV SCH (16:00)
--- NOTE | 2018-12-15 16:23 | Hospitalist Progress Note ---
Date of Service December 15, 2018 Assessment & Plan (1) Ulcerative colitis: Cont steroids for flare. IV methylprednisolone changed to PO prednisone tomorrow. Appreciate continued GI recommendations. (2) Cholangitis: Choledocholithiasis on ERCP with pus behind it. She is improved after stent placement and removal of stones and is on Zosyn. LFTs are improved. Stent exchange in 6 weeks. General surgery to advise on removal of gallbladder for visualized cholelithiasis. 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 Occurring in the setting of UC flare. Cont steroids. (4) Esophagitis: (5) Duodenal ulcer disease: Carafate and PPI BID per GI (6) Choledocholithiasis: Plan as above (7) Transaminitis: Likely secondary to acute cholangitis. Still elevated. Continue to trend. Overall clinically improved. Continue Zosyn. (8) Pancolitis: Pancolitis thought secondary to IBD flare with presumed ulcerative colitis. Recent flexible sigmoidoscopy status post biopsy with pathology revealing UC and CMV. Cont IV steroids, discuss CMV finding with GI in the morning. Continue to monitor over the next 48 hours for response. (9) HAP (hospital-acquired pneumonia): Cont Zosyyuan, continues to oxygenate well on room air. She has had one week of significant fatigue posing an aspiration risk. Speech path has continued to try and see her but steroids have caused drowsiness. Uncertain recommendations at this time. Cont aspiration precautions. (10) Low urine output: improved (11) Renal insufficiency: resolved to normal (12) Tachycardia: Episodes of tachycardia have occurred throughout the hospitalization. After informal discussion with cardiology, there is no evidence of atrial fibrillation on book publisher. This is more consistent with a burst of atrial tachycardia in the setting of her illness is appropriate. At this time no need for beta-blockers. (13) Severe malnutrition: PPN running, continue to advance diet as tolerated. Appreciate Nutrition involvement in the case. (14) Adnexal mass: She has lost approximately half her body weight over the last 6 months. She was seen to have a dermoid cyst that is 11 cm in diameter on CT imaging in the ER yesterday. Per gynecology we will not pursue any surgical intervention at this time given her age and comorbidities. This was explained to the family were understanding of this. (15) DVT prophylaxis: Heparin Full Code Dispo-cont hospitalization, for now cont telemetry. [facility] Subjective Feeling well today-improvement in abdominal pain. Daughter is asking about the IV solumedrol which seems to make her very drowsy, and als requesting a baked potato instead of the liquid diet. Still having diarrhea but without blood now. Review of Systems Review of Systems: All systems reviewed & are unremarkable except as noted in HPI & below Physical Exam Physical Exam: CONSTITUTIONAL: elderly frail, vitals stable, somnolent RESPIRATORY: clear to auscultation bilaterally, no crackles, rales or wheezes, normal respiratory effort CARDIOVASCULAR: regular rate and rhythm, S1 and 2 heard without murmurs, gallops or rubs, no JVD, no peripheral edema GASTROINTESTINAL: soft, nontender, nondistended SKIN: warm and dry NEUROLOGIC: CN 2-12 grossly intact, somnolent but able to wake up and is oriented per daughter who is translating. Results & Data Vital Signs (Past 12 Hours) Vital Signs Temp Pulse Pulse Resp BP Pulse Ox 12/15/18 16:00 36.6 C 65 18 144/80 H 97 12/15/18 15:55 66 12/15/18 10:56 36.4 C L 62 18 130/77 97 12/15/18 08:00 75 12/15/18 07:35 36.4 C L 60 17 154/79 H 95 Laboratory Results Short CBC 12/15/18 Range/Units 08:45 WBC 8.44 (4.8-10.8) K/uL Hgb 12.5 (12.0-16.0) g/dL Hct 36.1 L (37-47) % Plt Count 212 (130-400) K/uL BMP 12/15/18 12/15/18 08:45 08:45 Sodium 139 139 Potassium 4.6 4.5 Chloride 108 H 109 H Carbon Dioxide 23 24 BUN 69 H 67 H Creatinine 1.70 H D 1.66 H Glucose 160 H 158 H Calcium 8.1 L 8.1 L Liver Function 12/15/18 Range/Units 08:45 Total Bilirubin 0.8 (0.2-1) mg/dl Direct Bilirubin 0.4 H (0-0.2) mg/dl AST 341 H (15-37) U/L ALT 896 H (12-78) U/L Alkaline Phosphatase 499 H (45-117) U/L Albumin 1.5 L (3.4-5.0) gm/dl Medications Administered Current Inpatient Medications Heparin Sodium (Porcine) (Heparin Sodium (Porcine)) 5,000 units SQ Q12 CHARI Stop: 01/13/19 08:59 Last Admin: 12/15/18 09:06 Dose: 5,000 units Documented by: Thiamine HCl 100 mg/ Syringe 10 mls @ 2 mls/min IV QAM CHARI Stop: 01/12/19 08:59 Last Admin: 12/15/18 09:09 Dose: 2 mls/min Documented by: Acetaminophen 500 mg/ EMPTY (BAG) 50 mls @ 200 mls/hr IV Q4H PRN PRN Reason: Pain Stop: 01/11/19 19:44 Piperacillin Sod/Tazobactam (Sod 3.375 gm/ Dextrose) 115 mls @ 28.75 mls/hr IV Q12H CHARI; Protocol Stop: 12/20/18 01:59 Last Admin: 12/15/18 15:11 Dose: 28.8 mls/hr Documented by: Dextrose (D10w) 1,000 mls @ 0 mls/hr IV .Q0M CHARI Stop: 01/12/19 15:59 Pantoprazole Sodium 40 mg/ (Syringe) 10 mls @ 5 mls/min IV BID@0900,2100 [facility] Stop: 01/13/19 04:59 Last Admin: 12/15/18 09:06 Dose: 5 mls/min Documented by: Methylprednisolone 10 mg/ (Syringe) 0.25 mls @ 1.5 mls/min IV TID CHARI Stop: 01/13/19 13:59 Last Admin: 12/15/18 15:07 Dose: 1.5 mls/min Documented by: Lorazepam (Ativan) 0.5 mg PO HS PRN PRN Reason: Insomnia Stop: 01/08/19 21:59 Last Admin: 12/09/18 22:56 Dose: 0.5 mg Documented by: Miscellaneous Information (Pharmacy Tpn/Ppn Consult Active) 1 ea N/A UD PRN PRN Reason: Consult Stop: 01/11/19 20:41 Miscellaneous Information (Consult) 1 ea N/A UD PRN PRN Reason: Consult Stop: 01/12/19 00:22 Nutrition (Parenteral) (Custom Peripheral Pn) 1 bag IV TODAY@1600 [facility]; Protocol Stop: 12/16/18 15:59 Last Admin: 12/15/18 16:10 Dose: 1 bag Documented by: Ondansetron HCl (Zofran) 4 mg IV Q8H PRN PRN Reason: n/v Stop: 01/13/19 04:59 Pantoprazole Sodium (Protonix) 40 mg PO BID [facility] Stop: 01/12/19 20:59 Last Admin: 12/13/18 21:36 Dose: Not Given Documented by: Sucralfate (Carafate) 1 gm PO ACHS [facility] Stop: 01/12/19 20:59 Last Admin: 12/15/18 12:35 Dose: Not Given Documented by: Tramadol HCl (Ultram) 50 mg PO Q4H PRN PRN Reason: Pain Stop: 01/09/19 15:44 Last Admin: 12/11/18 17:01 Dose: 50 mg Documented by:
--- NOTE | 2018-12-15 21:38 | Nephrology Progress Note ---
Date of Service December 15, 2018 Assessment & Plan (1) Renal insufficiency: unclear baseline creatinine > started at 1.3, then to 1.1 w/ ivf, then to 1.66 today. Etiology of RYLEE likely ATN in setting of sepsis. She also got IV contrast exposure. some nsaid use prior to admission 1--2 ibuprofen daily x at least a week. also hx of homeopathic med use prior to admission. oliguric. albumin1.6. Anticipate improvement with treatment of sepsis -Avoid nephrotoxins. -strict I/0 -recheck bmp daily (2) Hypokalemia: improved w/ therapy. -recheck in am and address as needed (3) Hypernatremia: improved on ivf; monitor off of ivf Subjective Patient seen in the morning during rounds. She feels better. Seen with granddaughter at bedside translating. No SOB. BP is better Review of Systems Review of Systems: All systems reviewed & are unremarkable except as noted in HPI & below Physical Exam Physical Exam: General exam: Appears comfortable, no acute distress HEENT: Pupils are equal and reactive to light Neck: No JVD, neck is supple trachea is midline Respiratory system: Clear breath sounds bilaterally. Gastrointestinal: Abdomen is soft, non distended, non tender, bowel sounds are present CVS: Regular rate and rhythm. No murmurs, rubs or gallops Musculoskeletal: No joint or muscle tenderness Extremities: Non tender, no edema, peripheral pulses are present Neuro: Oriented, no tremors, no focal neurological deficits Skin: No rashes Results & Data Vital Signs (Past 12 Hours) Vital Signs Temp Pulse Pulse Resp BP BP Pulse Ox 12/15/18 19:01 36.5 C 76 18 130/71 95 12/15/18 16:00 36.6 C 65 18 144/80 H 97 12/15/18 15:55 66 12/15/18 10:56 36.4 C L 62 18 130/77 97 Laboratory Results Laboratory Results - last 24 hr 12/15/18 12/15/18 12/15/18 08:45 08:45 08:45 WBC 8.44 RBC 4.30 Hgb 12.5 Hct 36.1 L MCV 84.0 MCH 29.1 MCHC 34.6 RDW Std Deviation 47.1 H RDW Coeff of Yasmany 15.5 H Plt Count 212 MPV 10.4 ESR Sodium 139 139 Potassium 4.6 4.5 Chloride 108 H 109 H Carbon Dioxide 23 24 Anion Gap 8.0 6.0 BUN 69 H 67 H Creatinine 1.70 H D 1.66 H Est Cr Clr Drug Dosing 17.2 17.6 Est GFR ( Amer) 31.8 32.7 Est GFR (Non-Af Amer) 27.4 28.2 BUN/Creatinine Ratio 40.5 H 40.4 H Glucose 160 H 158 H POC Glucose Calcium 8.1 L 8.1 L Phosphorus 2.9 Magnesium 2.0 Total Bilirubin 0.8 Direct Bilirubin 0.4 H AST 341 H ALT 896 H Alkaline Phosphatase 499 H C-Reactive Protein 3.06 H Total Protein 4.4 L Albumin 1.5 L Globulin 2.9 Albumin/Globulin Ratio 0.5 L 12/15/18 12/15/18 08:45 18:04 WBC RBC Hgb Hct MCV MCH MCHC RDW Std Deviation RDW Coeff of Yasmany Plt Count MPV ESR 6 Sodium Potassium Chloride Carbon Dioxide Anion Gap BUN Creatinine Est Cr Clr Drug Dosing Est GFR ( Amer) Est GFR (Non-Af Amer) BUN/Creatinine Ratio Glucose POC Glucose 147 H Calcium Phosphorus Magnesium Total Bilirubin Direct Bilirubin AST ALT Alkaline Phosphatase C-Reactive Protein Total Protein Albumin Globulin Albumin/Globulin Ratio
[2018-12-16] MEDS: PIPERACILLIN/TAZOBACTAM 3.375 GM in DEXTROSE 5% 100 ML IV SCH ×3 (01:36→20:59)
[2018-12-16] MEDS: SUCRALFATE 1 GM/10 ML UDC PO SCH ×3 (07:57→19:38)
[2018-12-16 08:54] LABS: BUN Creatinine Ratio 57.9 (10-20); Calcium 7.9 mg/dl (8.5-10.1); Creatinine Clr Calc Pharmacy 31.5 ml/min; Est GFR (African American) 65.9; Est GFR (Non-African American) 56.8; Phosphorus 2.1 mg/dl (2.5-4.9); Potassium 4.3 mmol/L (3.5-5.1)
[2018-12-16] MEDS: THIAMINE HCL 100 MG in SYRINGE 9 ML IV SCH (09:44)
[2018-12-16] MEDS: methylPREDNISolone 10 MG in SYRINGE 0 ML IV SCH ×2 (09:44→14:18)
[2018-12-16] MEDS: PANTOprazole 40 MG in SYRINGE 0 ML IV SCH ×2 (09:44→21:00)
[2018-12-16] MEDS: HEPARIN SOD 5,000 UNIT/0.5 ML VIAL SQ SCH ×2 (10:02→19:38)
--- NOTE | 2018-12-16 10:30 | Nephrology Progress Note ---
Date of Service December 16, 2018 Assessment & Plan (1) Renal insufficiency: Etiology of RYLEE likely ATN in setting of sepsis. She also got IV contrast exposure. some nsaid use prior to admission 1--2 ibuprofen daily x at least a week. also hx of homeopathic med use prior to admission. Renal function is improved with treatment of cholangitis. Creatinine now back to baseline. -Avoid nephrotoxins. -strict I/0 -recheck bmp daily -Remove Joshi catheter (2) Hypophosphatemia: Patient with a phosphorus of 2.1 today. Recommend Neutra-Phos 40 mEq today. Subjective Patient seen in follow-up. Granddaughter Lucinda was at the bedside who translated Lebanese. Patient feels better today she has been able to ambulate to the bathroom. No shortness of breath or pain. She is starting to eat. She is also on PPN. Review of Systems Review of Systems: All systems reviewed & are unremarkable except as noted in HPI & below Physical Exam Physical Exam: General exam: Appears comfortable, no acute distress HEENT: Pupils are equal and reactive to light Neck: No JVD, neck is supple trachea is midline Respiratory system: Clear breath sounds bilaterally. Gastrointestinal: Abdomen is soft, non distended, non tender, bowel sounds are present CVS: Regular rate and rhythm. No murmurs, rubs or gallops Musculoskeletal: No joint or muscle tenderness Extremities: Non tender, no edema, peripheral pulses are present Neuro: Oriented, no tremors, no focal neurological deficits Skin: No rashes Results & Data Vital Signs (Past 12 Hours) Vital Signs Temp Pulse Pulse Resp BP BP Pulse Ox 12/16/18 07:47 62 12/16/18 07:12 36.5 C 65 16 109/68 93 12/16/18 03:38 36.4 C L 64 18 148/82 H 96 12/15/18 23:45 36.5 C 68 18 135/81 93 12/15/18 23:40 71 Laboratory Results Laboratory Results - last 24 hr 12/15/18 12/15/18 12/15/18 08:45 18:04 23:50 ESR 6 Sodium Potassium Chloride Carbon Dioxide Anion Gap BUN Creatinine Est Cr Clr Drug Dosing Est GFR ( Amer) Est GFR (Non-Af Amer) BUN/Creatinine Ratio Glucose POC Glucose 147 H 173 H Calcium Phosphorus Magnesium 12/16/18 12/16/18 06:08 07:53 ESR Sodium 136 Potassium 4.3 Chloride 105 Carbon Dioxide 25 Anion Gap 6.0 BUN 54 H Creatinine 0.93 D Est Cr Clr Drug Dosing 31.5 Est GFR ( Amer) 65.9 Est GFR (Non-Af Amer) 56.8 BUN/Creatinine Ratio 57.9 H Glucose 141 H POC Glucose 141 H Calcium 7.9 L Phosphorus 2.1 L Magnesium 2.0
[2018-12-16 11:54] LABS: Albumin Level 1.6 gm/dl (3.4-5.0); Bilirubin Direct 0.3 mg/dl (0-0.2); Bilirubin,Total 0.7 mg/dl (0.2-1); Total Protein 4.6 gm/dl (6.4-8.2)
--- NOTE | 2018-12-16 13:20 | Hospitalist Progress Note ---
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 Occurring in the setting of UC flare. Cont steroids. (2) Ulcerative colitis: Cont steroids for flare. IV methylprednisolone changed to PO prednisone tomorrow. Appreciate continued GI recommendations. (3) Cholangitis: Choledocholithiasis on ERCP with pus behind it. She is improved after stent placement and removal of stones and is on Zosyn. Clinically she is more awake and having less pain today. LFTs are improved. Stent exchange in 6 weeks. General surgery to advise on removal of gallbladder for visualized cholelithiasis. (4) Choledocholithiasis: Plan as above (5) Esophagitis: (6) Duodenal ulcer disease: Carafate and PPI BID per GI (7) HAP (hospital-acquired pneumonia): Cont Zosyn, continues to oxygenate well on room air. She has had one week of significant fatigue posing an aspiration risk. Speech path has continued to try and see her but steroids have caused drowsiness. Uncertain recommendations at this time. Cont aspiration precautions. (8) Renal insufficiency: resolved to normal (9) Tachycardia: Episodes of tachycardia have occurred throughout the hospitalization. After informal discussion with cardiology, there is no evidence of atrial fibrillation on chief revenue officer. This is more consistent with a burst of atrial tachycardia in the setting of her illness is appropriate. At this time no need for beta-blockers. (10) Severe malnutrition: PPN will be stopped as patient is eating now. (11) Adnexal mass: She has lost approximately half her body weight over the last 6 months. She was seen to have a dermoid cyst that is 11 cm in diameter on CT imaging in the ER yesterday. Per gynecology we will not pursue any surgical intervention at this time given her age and comorbidities. This was explained to the family were understanding of this. (12) DVT prophylaxis: Heparin Full Code Dispo-cont hospitalization, for now cont telemetry. Bina Spencer DO [facility] Hospitalist Subjective Feeling well today, was able to ambulate to the bathroom with minimal assistance. Tolerating PO, asking for more options for diet. Denies abdominal pain Review of Systems Review of Systems: All systems reviewed & are unremarkable except as noted in HPI & below Physical Exam Physical Exam: CONSTITUTIONAL: elderly frail, vitals as above, generally well-appearing EYES: normal conjunctivae, no scleral icterus ENT: MMM RESPIRATORY: clear to auscultation bilaterally, no crackles, rales or wheezes, normal respiratory effort CARDIOVASCULAR: regular rate and rhythm, S1 and 2 heard without murmurs, gallops or rubs, no JVD, no peripheral edema GASTROINTESTINAL: normal bowel sounds, soft, nontender, nondistended MUSCULOSKELETAL: moves all extremities equally, appears to be 5/5 strength throughout, head is normocephalic and atraumatic SKIN: warm and dry NEUROLOGIC: CN 2-12 grossly intact, normal cognition per daughter who is translating PSYCHIATRIC: alert cooperative and oriented to person, place and time. Results & Data Vital Signs (Past 12 Hours) Vital Signs Temp Pulse Pulse Resp BP Pulse Ox 12/16/18 12:10 36.5 C 57 L 18 103/69 96 12/16/18 07:47 62 12/16/18 07:12 36.5 C 65 16 109/68 93 12/16/18 03:38 36.4 C L 64 18 148/82 H 96
[2018-12-16] MEDS ORDERED: CUSTOM PERIPHERAL PN IV SCH (16:00)
--- NOTE | 2018-12-16 16:49 | Gastroenterology Progress Note ---
Date of Service December 16, 2018 Assessment & Plan (1) Cholangitis: Continue Zosyn. Advance to full liquids po. 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 Decrease steroids to allow healing from viral infection - but will not completely stop due to improvement in diarrhea on the steroids. DC IV, replace with prednisone 20mg po daily. Recommend ID consult for management of CMV infection. Supervising Physician Co-Signing Physician Notes I saw and evaluated the patient. Of note her diarrhea has improved significantly after starting the intravenous steroids however, her pathology did return as evidence of CMV in addition to ulcerative colitis. Recommendations Infectious disease consultation for assistance with CMV colitis Discontinue intravenous steroids Begin prednisone 20 mg daily for 5 days then 15 mg for 5 days then 10 mg for 5 days then 5 mg for 5 days Continue broad-spectrum antibiotics for coverage of cholangitis Biliary stent removal in 6 to 8 weeks Cholecystectomy per general surgery Subjective Mr. Cunningham is an 83 yr old female with previously untreated UC, now on steroids (methylprednisone 10mg IV TID) for UC who had CT and MRCP with CBD stone, underwent ERCP on 12/13 with sphincterotomy and sweeping of the bile duct for removal of stones. Today: Path +for CVM on colon biopsies. 2 BMs on microsoft dynamics ax consultant, 3 on day shift, each loose and brown (no blood BMs today). No leukocytosis or fevers. Very restful. No c/o abdominal pain. Daughter at the bedside. Review of Systems Review of Systems: Unable to obtain as no family at bedisde, refusing translation service Constitutional: + fatigue, + weakness and + weight loss Gastrointestinal: + diarrhea/loose stools; no abdominal pain, no nausea and no vomiting Neurologic: no tremor(s) and no dizziness Hematologic / Lymphatic: + unexplained weight loss Physical Exam Constitutional: WD/WN, vitals as above + thin and + language barrier (Translation by family members) Eyes: PERRL, conjunctivae normal, anicteric sclerae ENMT: external ear and nose normal, oropharynx normal Neck: trachea midline, no thyromegaly Respiratory: normal respiratory effort, lungs clear to auscultation Cardiovascular: RRR, no murmur, no edema Gastrointestinal (Abdomen): Inspection/Auscultation: + hypoactive bowel sounds; abdomen not distended Percussion/Palpation: abdomen soft; abdomen nontender Skin: no rashes, warm and dry Neurologic: PERRL, EOMI, accommodation nl, no face palsy, no dysarthria Psychiatric: Orientation: alert (wakens easily, then alert) Speech: normal rate/rhythm/volume of speech Results & Data Vital Signs (Past 12 Hours) Vital Signs Temp Pulse Pulse Resp BP Pulse Ox 12/16/18 15:18 36.4 C L 65 16 127/62 95 12/16/18 12:10 36.5 C 57 L 18 103/69 96 12/16/18 07:47 62 12/16/18 07:12 36.5 C 65 16 109/68 93
[2018-12-17] MEDS: SUCRALFATE 1 GM/10 ML UDC PO SCH ×5 (00:11→21:22)
[2018-12-17] MEDS: PIPERACILLIN/TAZOBACTAM 3.375 GM in DEXTROSE 5% 100 ML IV SCH ×3 (03:34→21:24)
[2018-12-17] MEDS: THIAMINE HCL 100 MG in SYRINGE 9 ML IV SCH (09:41)
[2018-12-17] MEDS: predniSONE 20 MG TAB PO SCH (09:41)
[2018-12-17] MEDS: HEPARIN SOD 5,000 UNIT/0.5 ML VIAL SQ SCH ×2 (09:44→21:24)
[2018-12-17] MEDS: PANTOprazole 40 MG in SYRINGE 0 ML IV SCH (09:45)
--- NOTE | 2018-12-17 11:21 | Hospitalist Progress Note ---
Date of Service December 17, 2018 Assessment & Plan (1) Choledocholithiasis: (2) Cholangitis: Choledocholithiasis on ERCP with pus behind it. -S/P Stent placement and removal of stones -IV Zosyn - Day 5 -Stent exchange in 6 weeks -General surgery advised on removal of gallbladder for visualized cholelithiasis in few weeks (before stent removal) once overall condition improves. (3) Transaminitis: Secondary to choledocholithiasis/cholangitis Trending down Overall improved Monitor trend (4) Esophagitis: (5) Duodenal ulcer disease: -Carafate and PPI BID per GI (6) Pancolitis: Pancolitis thought secondary to IBD flare with presumed ulcerative colitis /CMV Colitis -Recent flexible sigmoidoscopy status post biopsy with pathology showing CMV +ve /colitis with severe activity and ulceration. -Started on Solu-Medrol IV 12/16/18 AM --> decreased to prednisone 20 mg on 12/16/18 to allow healing from viral infection per GI -ID consulted for CMV colitis (7) CMV colitis: Prior sigmoidoscopy pathology came back positive for CMV colitis -ID consult to assist with antiviral choice. 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 Occurring in the setting of UC flare. -Steroids were reduced from IV to PO per GI (8) Ulcerative colitis: Cont steroids for flare. -IV methylprednisolone changed to PO prednisone today per GI-20 mg for 5 days followed by reduction every 5 days x 5 mg. (9) HAP (hospital-acquired pneumonia): HAP VS ASPIRATION -Cont Zosyn IV- Day 5 -Speech path has continued to try and see her but steroids have caused drowsiness. Uncertain recommendations at this time. -Cont aspiration precautions. (10) Renal insufficiency: RYLEE- Resolved -Normal (11) Tachycardia: RESOLVED Episodes of tachycardia have occurred throughout the hospitalization. After informal discussion with cardiology, there is no evidence of atrial fibrillation on monitoring tech. This is more consistent with a burst of atrial tachycardia in the setting of her illness is appropriate. At this time no need for beta-blockers. (12) Severe malnutrition: -PPN stopped as patient is eating now. -Tolerating PO though appetite continues to be poor (13) Adnexal mass: She has lost approximately half her body weight over the last 6 months. She was seen to have a dermoid cyst that is 11 cm in diameter on CT imaging in the ER . -Per gynecology we will not pursue any surgical intervention at this time given her age and comorbidities. -This was explained to the family were understanding of this. (14) DVT prophylaxis: Heparin SQ Full Code Dispo- Medical mx in progress Updated grand daughter by bedside. OK to transfer to med-surg Subjective Translation by granddaughter- Maldivian Patient is feeling better today. Clinically improving slowly. Tolerating p.o. diet, though appetite continues to be poor. Denies any abdominal pain. Diarrhea frequency has been improving, consistency continues to be liquidy. Denies any fever, chills. Physical Exam Physical Exam: GENERAL- AAOX3, No acute distress, Frail, Malnourished LUNGS- Air entry bilaterally equal. No rales, rhonchi, crackles, wheezes heard. HEART- Regular rate and rhythm. No murmurs ABDOMEN- Soft, non tender, non distended, Bowel sounds heard. EXTREMITIES- Good peripheral pulses, no edema Results & Data Vital Signs (Past 12 Hours) Vital Signs Temp Pulse Pulse Resp BP BP Pulse Ox 12/17/18 07:12 36.5 C 64 16 127/77 98 12/17/18 03:55 37.1 C 71 16 128/69 94 12/17/18 02:39 72
[2018-12-17] MEDS ORDERED: ACETAMINOPHEN 325 MG TAB PO PRN (13:10)
--- NOTE | 2018-12-17 14:02 | Gastroenterology Progress Note ---
Date of Service December 17, 2018 Assessment & Plan (1) Cholangitis: Continue Zosyn. Cont low fiber diet. 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 Cont Prednisone at 20mg/day po for now. Will eventually taper. Awaiting ID consult for management of CMV infection. Supervising Physician Co-Signing Physician Notes I saw and evaluated the patient. She looks much improved today and is sitting at bedside in a chair. Of note her diarrhea has improved significantly after starting the intravenous steroids however, her pathology did return as evidence of CMV in addition to ulcerative colitis. Recommendations Infectious disease consultation for assistance with CMV colitis Continue prednisone 20 mg daily for 5 days then 15 mg for 5 days then 10 mg for 5 days then 5 mg for 5 days Begin Lialda for UC Continue broad-spectrum antibiotics for coverage of cholangitis Biliary stent removal in 6 to 8 weeks Cholecystectomy per general surgery Please obtain a daily metabolic panel and liver function panel Subjective Translation by granddaughter and mother today. Pt answering questions. [place] Today, steroid dose 20mg po. Further improved today: Not as sleepy. Able to see sit up in a bedside chair 2 BMs in the past 24 hr, no blood, still liquid. Eating small amts of low fiber diet. Review of Systems Review of Systems: Unable to obtain as no family at bedisde, refusing translation service Constitutional: + fatigue, + weakness and + weight loss Gastrointestinal: + diarrhea/loose stools; no abdominal pain, no nausea and no vomiting Hematologic / Lymphatic: + unexplained weight loss Physical Exam Constitutional: WD/WN, vitals as above + thin and + language barrier (Translation by family members) Eyes: PERRL, conjunctivae normal, anicteric sclerae ENMT: external ear and nose normal, oropharynx normal Neck: trachea midline, no thyromegaly Respiratory: normal respiratory effort, lungs clear to auscultation Cardiovascular: RRR, no murmur, no edema Gastrointestinal (Abdomen): Inspection/Auscultation: + hypoactive bowel sounds; abdomen not distended Percussion/Palpation: abdomen soft; abdomen nontender Skin: no rashes, warm and dry Neurologic: PERRL, EOMI, accommodation nl, no face palsy, no dysarthria Psychiatric: Orientation: alert (wakens easily, then alert) Speech: normal rate/rhythm/volume of speech Results & Data Vital Signs (Past 12 Hours) Vital Signs Temp Pulse Pulse Resp BP BP Pulse Ox 12/17/18 11:17 36.6 C 81 16 112/78 93 12/17/18 07:12 36.5 C 64 16 127/77 98 12/17/18 03:55 37.1 C 71 16 128/69 94 12/17/18 02:[address], MRI, ERCP and Flex sig results reviewed: Choledocholithiasis, then ERCP with sphincterotomy and stone extrations. CT and Flex sig with colitis. Flex sig path with CMV. Medications Administered Prednisone 20mg daily IV Zosyn.
--- NOTE | 2018-12-17 14:44 | Infectious Disease Consult ---
Date of Consultation December 17, 2018 Assessment & Plan (1) CMV colitis: 83-year-old female with ulcerative colitis now on immunosuppressive therapy with CMV colitis. Would recommend treatment with IV ganciclovir, with transition to oral valganciclovir once discharged if possible. May need to consider chronic suppression and if going to continue significant immunosuppressive therapy. Will discuss with all involved. Case discussed at length with daughter. Will follow. History of Present Illness Reason for Consultation: CMV colitis Attending Physician: Samantha Bal History of Present Illness 83-year-old female with long history of ulcerative colitis, not on any treatment for at least 20 years, who was admitted to the hospital December 09 with 4 to 5 days of abdominal pain and bloody stools. Found to have evidence of severe colitis, and now pathology is returned positive first evidence of CMV infection. Patient has been on high-dose steroids in a tapering schedule, and is now starting to feel better. No reported fever, chills, shortness of breath, cough, visual complaints. Allergies Allergy/AdvReac Type Severity Reaction Status Date / Time lactose AdvReac Unknown Diarrhea Verified 12/16/18 16:13 Home Medications Home Medications Medication Instructions Recorded Confirmed Type ibuprofen 800 mg PO TID PRN 12/09/18 12/09/18 History Patient History Medical History CKD (chronic kidney disease) Low urine output Hypernatremia Renal insufficiency DVT prophylaxis Choledocholithiasis Common bile duct dilatation Adnexal mass Tachycardia Rectal bleeding Pancolitis Colitis (Chronic) Ulcerative colitis (Acute) Abdominal pain (Acute) Dehydration (Acute) Hypokalemia (Acute) Hypocalcemia (Acute) Dermoid tumor (Acute) Ulcerative colitis (Chronic) Surgical History H/O colonoscopy (Chronic) Reported in s in [place] Social History Preferred Language: Albanian Communication Ability: 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 Required: No Beliefs That Will Affect Care: None Current Living Situation: Family Current Living Situation Comment: Lives with her daughter and her daughters - Madeline Other Information That Helps Us Care for You: No Feels Safe at Home: Yes Safety Concerns: Feels Safe At This Time Smoking Status: Never smoker Hx Alcohol Use: No Hx Substance Use: No Review of Systems Review of Systems: All systems reviewed & are unremarkable except as noted in HPI & below Physical Exam Constitutional: WD/WN, vitals as above + thin and comfortable; no acute distress Eyes: PERRL, conjunctivae normal, anicteric sclerae ENMT: external ear and nose normal, oropharynx normal Neck: trachea midline, no thyromegaly neck nontender Respiratory: normal respiratory effort, lungs clear to auscultation normal percussion; does not use accessory muscles Cardiovascular: Rate/Rhythm: regular rate and regular rhythm Heart Sounds: normal S1 and normal S2; no gallop, no murmur and no cardiac rub Vessels: normal peripheral pulses; no JVD Gastrointestinal (Abdomen): Inspection/Auscultation: abdomen normal to inspection and normal bowel sounds Percussion/Palpation: + abdomen tender; no hepatosplenomegaly and no abdominal mass Musculoskeletal: no cyanosis or clubbing, extremities motor strength 5/5 Spine: thoracic spine normal to inspection and lumbar spine normal to inspection; no cervical spinal tenderness Skin: no rashes, warm and dry normal turgor; no lesions Neurologic: patellar DTR's 2+ bilat, sensation intact no focal motor deficits Psychiatric: A+Ox3, euthymic affect Orientation: cooperative Lymphatic: no cervical or axillary lymphadenopathy no inguinal lymphadenopathy Results & Data Vital Signs (Past 12 Hours) Vital Signs Temp Pulse Resp BP BP Pulse Ox 12/17/18 11:17 36.6 C 81 16 112/78 93 12/17/18 07:12 36.5 C 64 16 127/77 98 12/17/18 03:55 37.1 C 71 16 128/69 94 Laboratory Results Laboratory Results - last 48 hr 12/15/18 12/15/18 12/16/18 18:04 23:50 06:08 Sodium Potassium Chloride Carbon Dioxide Anion Gap BUN Creatinine Est Cr Clr Drug Dosing Est GFR ( Amer) Est GFR (Non-Af Amer) BUN/Creatinine Ratio Glucose POC Glucose 147 H 173 H 141 H Calcium Phosphorus Magnesium Total Bilirubin Direct Bilirubin AST ALT Alkaline Phosphatase Total Protein Albumin 12/16/18 12/16/18 12/16/18 07:53 07:53 12:01 Sodium 136 Potassium 4.3 Chloride 105 Carbon Dioxide 25 Anion Gap 6.0 BUN 54 H Creatinine 0.93 D Est Cr Clr Drug Dosing 31.5 Est GFR ( Amer) 65.9 Est GFR (Non-Af Amer) 56.8 BUN/Creatinine Ratio 57.9 H Glucose 141 H POC Glucose 138 H Calcium 7.9 L Phosphorus 2.1 L Magnesium 2.0 Total Bilirubin 0.7 Direct Bilirubin 0.3 H AST 110 H ALT 606 H Alkaline Phosphatase 446 H Total Protein 4.6 L Albumin 1.6 L 12/16/18 17:57 Sodium Potassium Chloride Carbon Dioxide Anion Gap BUN Creatinine Est Cr Clr Drug Dosing Est GFR ( Amer) Est GFR (Non-Af Amer) BUN/Creatinine Ratio Glucose POC Glucose 132 H Calcium Phosphorus Magnesium Total Bilirubin Direct Bilirubin AST ALT Alkaline Phosphatase Total Protein Albumin Diagnostic Findings Microbiology 12/16/18 05:40 Urine,Indwelling Cath Urine Culture - Preliminary Sydni albicans 12/15/18 08:20 Stool Escherichia coli Shiga Toxins Test - Preliminary 12/15/18 08:20 Stool Stool Culture - Preliminary Sydni albicans 12/13/18 09:05 Stool Escherichia coli Shiga Toxins Test - Final 12/13/18 09:05 Stool Stool Culture - Final No Salmonella isolated, No Shigella isolated, No Campylobacter jejuni isolated. 12/10/18 07:32 Blood Aerobic Blood Culture - Final No growth in Aerobic bottle after 5 days. 12/10/18 07:32 Blood Anaerobic Blood Culture - Final No growth in Anaerobic bottle after 5 days. 12/10/18 07:42 Blood Aerobic Blood Culture - Final No growth in Aerobic bottle after 5 days. 12/10/18 07:42 Blood Anaerobic Blood Culture - Final 12/13/18 11:30 Urine,Indwelling Cath Urine Culture - Final No growth - less than 1,000 colonies/mL. 12/13/18 09:05 Stool WBC Smear - Final 12/10/18 06:45 Urine,Clean Catch Urine Culture - Final No growth - less than 1,000 colonies/mL. 12/09/18 14:51 Stool WBC Smear - Final
[2018-12-17] MEDS ORDERED: [UNRECOGNIZED DRUG - REMARK] PRN (15:25)
--- NOTE | 2018-12-17 16:26 | Nephrology Progress Note ---
Date of Service December 17, 2018 Assessment & Plan (1) Renal insufficiency: Etiology of RYLEE likely ATN in setting of sepsis. She also got IV contrast exposure. some nsaid use prior to admission 1--2 ibuprofen daily x at least a week. also hx of homeopathic med use prior to admission. Renal function is improved with treatment of cholangitis. Creatinine now back to baseline. -Avoid nephrotoxins. -strict I/0 -recheck bmp daily -Renal will sign off. Please call if additional questions. (2) Hypophosphatemia: Monitor and replace as needed Subjective Patient seen in f/u this morning. No SOB or pain. Joshi removed yesterday. Patient urinating well. Cr better. Seen with grand daughter Lucinda kimble Review of Systems Review of Systems: All systems reviewed & are unremarkable except as noted in HPI & below Physical Exam Physical Exam: General exam: Appears comfortable, no acute distress HEENT: Pupils are equal and reactive to light Neck: No JVD, neck is supple trachea is midline Respiratory system: Clear breath sounds bilaterally. Gastrointestinal: Abdomen is soft, non distended, non tender, bowel sounds are present CVS: Regular rate and rhythm. No murmurs, rubs or gallops Musculoskeletal: No joint or muscle tenderness Extremities: Non tender, no edema, peripheral pulses are present Neuro: Oriented, no tremors, no focal neurological deficits Skin: No rashes Results & Data Vital Signs (Past 12 Hours) Vital Signs Temp Pulse Resp BP Pulse Ox 12/17/18 15:18 36.4 C L 68 18 116/75 94 12/17/18 11:17 36.6 C 81 16 112/78 93 12/17/18 07:12 36.5 C 64 16 127/77 98 Laboratory Results Laboratory Results - last 24 hr 12/16/18 17:57 POC Glucose 132 H
[2018-12-17 17:34] LABS: Hematocrit (blood only) 34.4 % (37-47); Hemoglobin 12.1 g/dL (12.0-16.0); Mean Corpuscular Hgb Conc 35.2 g/dL (32-36); Mean Corpuscular Volume 85.6 fL (80-100); Platelet Count 225 K/uL (130-400); RDW Coefficient of Variation 14.9 % (11.5-14.5); RDW Standard Deviation 46.2 fL (36.4-46.3); Red Blood Count 4.02 M/uL (4.2-5.4); White Blood Count 7.98 K/uL (4.8-10.8)
[2018-12-17 17:58] LABS: Creatinine Clr Calc Pharmacy 51.3 ml/min; Est GFR (African American) 99.4; Est GFR (Non-African American) 85.7
[2018-12-17 18:02] LABS: Albumin Globulin Ratio 0.5 (0.9-2); Albumin Level 1.5 gm/dl (3.4-5.0); BUN Creatinine Ratio 52.8 (10-20); Bilirubin,Total 0.7 mg/dl (0.2-1); Calcium 7.7 mg/dl (8.5-10.1); Globulin 2.8 gm/dl (2.5-4.0); Magnesium 1.8 mg/dl (1.8-2.4); Phosphorus 2.7 mg/dl (2.5-4.9); Potassium 4.3 mmol/L (3.5-5.1); Total Protein 4.3 gm/dl (6.4-8.2)
[2018-12-17] MEDS: GANCICLOVIR SODIUM IV SCH (18:03)
[2018-12-17] MEDS: SODIUM CHLORIDE 0.9% IV SCH (18:03)
[2018-12-17] MEDS: PANTOprazole 40 MG TAB PO SCH (21:22)
[2018-12-18] MEDS: PIPERACILLIN/TAZOBACTAM 3.375 GM in DEXTROSE 5% 100 ML IV SCH ×2 (03:01→11:26)
[2018-12-18] MEDS: GANCICLOVIR SODIUM IV SCH ×2 (04:18→16:54)
[2018-12-18] MEDS: SODIUM CHLORIDE 0.9% IV SCH ×2 (04:18→16:54)
[2018-12-18] MEDS: SUCRALFATE 1 GM/10 ML UDC PO SCH ×3 (07:40→15:58)
[2018-12-18] MEDS: HEPARIN SOD 5,000 UNIT/0.5 ML VIAL SQ SCH (08:28)
[2018-12-18] MEDS ORDERED: THIAMINE HCL 100 MG TAB PO SCH (09:00)
[2018-12-18] MEDS: PANTOprazole 40 MG TAB PO SCH (09:06)
--- NOTE | 2018-12-18 10:48 | Gastroenterology Progress Note ---
Date of Service December 18, 2018 Assessment & Plan (1) Cholangitis: Continue Zosyn, prednisone, gancyclovir. Will start Lialda on DC Cont low fiber diet. Needs OP GI f/u with Dr. Avalos or Ector in approx 2 weeks. (2) Pancolitis: From CMV and UC. See above. Supervising Physician Co-Signing Physician Notes I saw and evaluated the patient. She looks much improved today and is sitting at bedside in a chair. Of note her diarrhea has improved significantly after starting the intravenous steroids however, her pathology did return as evidence of CMV in addition to ulcerative colitis. Recommendations Appreciate ID assistance with CMV colitis Continue prednisone 20 mg daily for 3 days then 15 mg for 5 days then 10 mg for 5 days then 5 mg for 5 days Begin Lialda for UC as an OP (upon discharge) Continue broad-spectrum antibiotics for coverage of cholangitis for a total of 10 days Biliary stent removal in 6 to 8 weeks Cholecystectomy per general surgery Please call if there are any additional questions or concerns Subjective Granddaughter by bedside doing the translation Patient awake, alert, walking in the room with minimal asistance. 2-3 loose BMs in the past 24 hrs. No abdominal pain. LFts improving Yesterday AST 54, ALt 416, ALk Phos 343, T bili 0.7. Meds: prednisone 20daily, Ganciclover IV, Zosyn Review of Systems Constitutional: no fever and no chills Respiratory: no cough and no dyspnea Cardiovascular: no chest pain, no syncope and no edema Gastrointestinal: as per Subjective / HPI Physical Exam Constitutional: WD/WN, vitals as above + thin and + language barrier (Translation by family members) Eyes: PERRL, conjunctivae normal, anicteric sclerae ENMT: external ear and nose normal, oropharynx normal Neck: trachea midline, no thyromegaly Respiratory: normal respiratory effort, lungs clear to auscultation Cardiovascular: RRR, no murmur, no edema Gastrointestinal (Abdomen): Inspection/Auscultation: + hypoactive bowel sounds; abdomen not distended Percussion/Palpation: abdomen soft; abdomen nontender Skin: no rashes, warm and dry Neurologic: PERRL, EOMI, accommodation nl, no face palsy, no dysarthria Psychiatric: Orientation: alert (wakens easily, then alert) Speech: normal rate/rhythm/volume of speech Results & Data Vital Signs (Past 12 Hours) Vital Signs Temp Pulse Resp BP BP Pulse Ox 12/18/18 08:06 36.6 C 68 16 103/68 97 12/18/18 00:00 36.6 C 77 18 131/76 92 Laboratory Results Labs yesterday at 17:22: LFTs: T Bili 0.7AST 54, ALT 316, ALT 316, WBC 7.98, Hb 12.1, Hct 34.4, platelets 225
[2018-12-18] MEDS: predniSONE 20 MG TAB PO SCH (11:27)
--- NOTE | 2018-12-18 12:52 | Hospitalist Progress Note ---
Date of Service December 18, 2018 Assessment & Plan (1) Cholangitis: (2) Choledocholithiasis: Choledocholithiasis on ERCP with pus behind it. -S/P Stent placement and removal of stones -IV Zosyn - Day 5 -Stent exchange in 6 weeks -General surgery advised on removal of gallbladder for visualized cholelithiasis in few weeks (before stent removal) once overall condition improves. 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 Recent flexible sigmoidoscopy status post biopsy with pathology revealing UC and CMV. -Received IV steroids--> Changed to PO on 12/17/18 as also diagnosed with CMV Colitis -Prednisone 20 m g x 5 days and than reduction by 5 mg q 5 days per GI -CMV Coliltis rx as below (8) CMV colitis: Prior sigmoidoscopy pathology came back positive for CMV colitis -ID consult to assist with antiviral choice. 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 Occurring in the setting of UC flare. -Steroids were reduced from IV to PO per GI as above -IV Gancyclovir q 12 hours started by ID and on discharge - vangancyclovir x 21 days followed by possible need for suppression rx given on steroids (9) HAP (hospital-acquired pneumonia): HAP VS ASPIRATION -Cont Zosyn IV- Day 6 -Speech path has continued to try and see her but steroids have caused drowsiness. Uncertain recommendations at this time. -Cont aspiration precautions. (10) Low urine output: improved (11) Renal insufficiency: RYLEE- Resolved -Normal (12) Tachycardia: RESOLVED Episodes of tachycardia have occurred throughout the hospitalization. After informal discussion with cardiology, there is no evidence of atrial fibrillation on glass sander. This is more consistent with a burst of atrial tachycardia in the setting of her illness is appropriate. At this time no need for beta-blockers. (13) Severe malnutrition: PPN running, continue to advance diet as tolerated. Appreciate Nutrition involvement in the case. (14) Adnexal mass: She has lost approximately half her body weight over the last 6 months. She was seen to have a dermoid cyst that is 11 cm in diameter on CT imaging in the ER . -Per gynecology we will not pursue any surgical intervention at this time given her age and comorbidities. -This was explained to the family were understanding of this. (15) DVT prophylaxis: Heparin SQ Full Code Dispo- Need to work on the coverage for antiviral medications. Would recommend inpatient rehab given physical deconditioning, however patient's family adamant about taking her home. Updated grand daughter by bedside. Ok to discharge once arrangements for antiviral meds made Subjective Granddaughter by bedside doing the translation Patient is a little sleepy today. However arousable and knows where she is unable to communicate. Abdominal pain has almost resolved. No nausea, vomiting, fever, chills. No overnight events. Patient is tolerating p.o. though appetite continues to be poor. Eager to be discharged home Physical Exam Physical Exam: GENERAL-sleepy, but arousable. Oriented x2, No acute distress, Frail, Malnourished LUNGS- Air entry bilaterally equal. No rales, rhonchi, crackles, wheezes heard. HEART- Regular rate and rhythm. No murmurs ABDOMEN- Soft, mild tenderness, non distended, Bowel sounds heard. EXTREMITIES- Good peripheral pulses, no edema Results & Data Vital Signs (Past 12 Hours) Vital Signs Temp Pulse Resp BP Pulse Ox 12/18/18 08:06 36.6 C 68 16 103/68 97
--- NOTE | 2018-12-18 15:43 | Discharge Summary ---
Date of Service December 18, 2018 Admission HPI Per Admitting Provider Pt is 83 y/o F with PMH reported ulcerative colitis presented to ER with c/o abdominal pain x 5 days. 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 Granddaughter is currently acting as pharmacy benefit manager. History obtained from pt's granddaughter and pt's daughter gives history over the phone. Reports pt was diagnosed with ulcerative colitis in 1967 in [place]. States 5 days ago started with lower abdominal pain with associated loose red bloody stools and mucous in stools and "black flecks". Also c/o nausea. Reports past several days pt has not been eating or drinking and has had increased weakness. Denies known vomiting. Reports highest recorded temp was 37.2C. Tried Ibuprofen 400mg a couple of times without abdominal pain. Abdominal pain has continued to worsen prompting ER visit today. Denies CP, SOB, dizziness, urinary symptoms. States pt initially diagnosed with ulcerative colitis by colonoscopy and was treated with medications initially for colitis however hasn't been on treatment for approx 20 years and reports that symptoms are diet controlled. Reports that pt has "flares seasonally" which symptoms are bloody stools for days to weeks and denies abdominal pain with these. States that pt usually manages symptoms with diet and has not needed antibiotics or hospitalization for 15 years. Reports pt been living in [facility] for approx 15 years and does not follow with PCP. States over past 6 months pt with approx 30 pound weight loss. Unknown if any night sweats. Reports known ovarian mass which was dx in 1989' and was reported suspected benign and pt denied any further treatment. Further ROS unable to be obtained. Unable to obtain FH. Pt uncooperative and refuses further history. Pt is denying exam from this provider. Principal Diagnosis 1. Choledocholithiasis 2. Status post ERCP with stent placement and removal of stones 3. Cholangitis 4. Esophagitis/duodenal ulcer disease 5. 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 Possible aspiration pneumonia 8. Severe malnutrition 9. Acute kidney injury 10. Physical deconditioning Discharge Exam GENERAL-sleepy, but arousable. Oriented x2, No acute distress, Frail, Malnourished LUNGS- Air entry bilaterally equal. No rales, rhonchi, crackles, wheezes heard. HEART- Regular rate and rhythm. No murmurs ABDOMEN- Soft, mild tenderness, non distended, Bowel sounds heard. EXTREMITIES- Good peripheral pulses, no edema Discharge Data Allergies Allergy/AdvReac Type Severity Reaction Status Date / Time lactose AdvReac Unknown Diarrhea Verified 12/16/18 16:13 Consultations 12/09/18 18:40 ED Decision to Admit Stat 12/09/18 21:32 Consult Case Management - Discharge Planning Routine 12/10/18 04:01 Consult Gastroenterology Routine 12/10/18 07:00 Consult Gynecology Routine 12/11/18 10:32 Consult Nephrology Routine 12/12/18 14:07 Consult General Surgery Routine 12/16/18 13:19 Consult Infectious Diseases Routine Procedures Performed Operation Date: 12/12/18 08:30 Actual Procedures p Colonoscopy Biopsy Cytology - Matias Avalos Operation Date: 12/13/18 15:55 Actual Procedures p Endoscopic Retrograde Cholangiopancreato with Stent Insertion, Sphincterotomy( Not Applicable) - Stefani Barney s Esophagogastroduodenoscopy(Not Applicable) - Stefani Barney Operation Date: 12/14/18 09:00 <No data on this case meets the specified criteria> Ordered Studies 12/09/18 14:33 CT abd pelvis IV con only Stat 12/13/18 09:00 MR MRCP Urgent 12/13/18 15:54 FL ERCP biliary ductal Routine Hospital Course (1) Cholangitis: (2) Choledocholithiasis: Choledocholithiasis on ERCP with pus behind it. -S/P Stent placement and removal of stones -IV Zosyn - Day 6 --> Change to Ciprofloxacin / Flagyl x 4 more days to complete 10 days of antibiotics -Stent exchange in 6 - 8 weeks by GI. Follow up arrangement made by GI -General surgery advised on removal of gallbladder for visualized cholelithiasis in few weeks (before stent removal) once overall condition improves. 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 Recent flexible sigmoidoscopy status post biopsy with pathology revealing UC and CMV. 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 Recent flexible sigmoidoscopy status post biopsy with pathology revealing UC and CMV. 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 Occurring in the setting of UC flare. -Steroids were reduced from IV to PO per GI as above -IV Gancyclovir q 12 hours started by ID and on discharge - vangancyclovir x 21 days followed by possible need for suppression rx given on steroids/ immunocompromised. Will need another prescription for the same (Co pay: $ 400- acceptable to the family) (9) HAP (hospital-acquired pneumonia): HAP VS ASPIRATION -On Zosyn IV- Day 6--> Change to PO as above -Speech path has continued to try and see her but steroids have caused drowsiness. Uncertain recommendations at this time. -Cont aspiration precautions. (10) Renal insufficiency: RYLEE- Resolved Likely ATN in setting of sepsis, cholangitis -Nephrology signed off (11) Tachycardia: RESOLVED Episodes of tachycardia have occurred throughout the hospitalization. After informal discussion with cardiology, there is no evidence of atrial fibrillation on monitor tech. This is more consistent with a burst of atrial tachycardia in the setting of her illness is appropriate. At this time no need for beta-blockers. -This was per Dr Spencer. No issues noted during my care period (12) Severe malnutrition: S/P PPN -Tolerating PO now, but decreased appetite (13) Adnexal mass: She has lost approximately half her body weight over the last 6 months. She was seen to have a dermoid cyst that is 11 cm in diameter on CT imaging in the ER . -Per gynecology we will not pursue any surgical intervention at this time given her age and comorbidities. -This was explained to the family were understanding of this as per Dr Sepncer. (14) DVT prophylaxis: Heparin SQ Full Code Dispo- Discussed at length with familydaughter, granddaughter by bedside. Answered all the questions. Had a 30-minute long conversation about the discharge planning. They are agreeable to establishing care with primary care physician. Refusing inpatient rehab or home health services/PT/OT. They have contacted pharmacy which will make arrangements for vanganciclovir in 24 hours (physical prescription given). Rolling walker prescription given. Ok to discharge home today after IV Gancyclovir evening dose. Agreeable with discharge plan Total Time Total Time Spent Total Time Spent (In Minutes): 60 minutes Discharge Plan Discharge Items Patient Disposition: Home - Self-Care Reason For Visit: PANCOLITIS Discharge Diagnosis: 1. Choledocholithiasis s/p stent placement and removal of stone 2. Cholangitis 3. Pope colitis - CMV colitis, Ulcerative colitis 4. Physical deconditioning Discharge Goals: Improve disease control Activity: Resume your previous activity Activity Comment: Advance activity as tolerated. Non-emergency contact: Primary Care Provider Call non-emergency contact if: your symptoms worsen, your pain is concerning for you and your temperature is above 101.5 Follow-up/Referrals: Ricardo Pacheco MD [Surgeon] - (Please call for follow up appt Need gall bladder removal surgery prior to stent removal in 6-8 weeks. So need to plan out cholecystectomy surgery timing) Stefani Barney [Physician] - (You will get a call from office for appt date and time) Genoveva Torrez DO [Physician] - 12/23/18 10:15 am Diet: Regular Addtl Provider Instructions: You were admitted to hospital with the diagnosis of 1. Choledocholithiasis 2. Cholangitis 3. Pope colitis - Cytomegalovirus (CMV) colits, Ulcerative colitis You had stent placement and removal of stone on 12/13/[address] Barney. You are supposed to get the stent removal in 6 weeks. Prior to stent removal, general surgeon recommends removal of gallbladder MEDICATION CHANGES 1. New medication- Vangancyclovir 900 mg PO twice a day x 21 days and than may need it once a day for prophylaxis/Virus suppression depending on her immune status ( to be decided by PCP/ ID)- Script given 2. New medication- Lialda 2.4 gram (2 tabs) daily for ulcerative colitis 3. New medication-prednisone 20 mg for 3 days followed by 15 mg for 5 days followed by 10 mg for 5 days and then 5 mg for 5 days 4. New medicationprotonix 40 mg PO twice a day 5. New medication- Sucralfate 1 gram with meals 6. New medication- Ciprofloxacin and Metronidazole as directed for 4 more days to complete course of 10 days for cholangitis (received IV Zosyn for 6 days) Prescriptions: New pantoprazole 40 mg Tablet,Delayed Release (Dr/Ec) 40 mg PO BID 30 Days Qty: 60 RF: 0 prednisone 10 mg tablet 10 mg PO DAILY Qty: 30 RF: 0 sucralfate 1 gram tablet 1 gm PO ACHS Qty: 60 RF: 0 mesalamine [Lialda] 1.2 gram tablet,delayed release (DR/EC) 2.4 gm PO DAILY 30 Days Qty: 60 RF: 0 ciprofloxacin HCl 500 mg tablet 500 mg PO BID Qty: 8 RF: 0 metronidazole 500 mg tablet 500 mg PO Q8H Qty: 12 RF: 0 Discontinued ibuprofen 800 mg Tablet 800 mg PO TID PRN (Reason: Pain) RF: 0 Stand-Alone Forms: [facility] Discharge Orders: Discharge Order (Routine); Ordered 12/18/18 Ordered By: Samantha Bal Admission Data Admit Date/Time: 12/09/18 20:04 Attending Provider: Samantha Bal Admit Provider: Osmin Briseno Primary Care Provider: PCP,NO Other Providers: Matias Avalos ; Ricardo Pacheco ; Eliel Esteves Evan T. ; Radha Negro ; Bina Spencer Service: Medical
== END 2018-12-18 19:48 | disposition home or self-care (01) | DRG 408 ==
LOC: ED 14:19 → SUATTDRO 20:04 → 2S 20:04 → 2N 12-17 13:15

== ENCOUNTER 2021-05-15 13:52 | Inpatient (IN) ==
[2021-05-15] MEDS ORDERED: ONDANSETRON INJ 2 MG/ML 2 ML VIAL IV STA (14:25)
[2021-05-15] MEDS ORDERED: SODIUM CHLORIDE 0.9% 500 ML IV STA (14:25)
[2021-05-15 14:40] LABS: Basophils # (auto) 0.02 K/uL (0-0.2); Basophils % (auto) 0.2 %; Eosinophils # (auto) 0.04 K/uL (0-0.5); Eosinophils % (auto) 0.5 %; Hematocrit (blood only) 36.6 % (37-47); Lymphocytes # (auto) 0.77 K/uL (1.2-3.4); Lymphocytes % (auto) 8.8 %; Mean Corpuscular Hemoglobin 29.5 pg (25-34); Mean Corpuscular Hgb Conc 32.8 g/dL (32-36); Mean Corpuscular Volume 89.9 fL (80-100); Mean Platelet Volume 9.7 fL (7.4-10.4); Monocytes # (auto) 0.55 K/uL (0.11-0.59); Monocytes % (auto) 6.3 %; Neutrophils # (auto) 7.35 K/uL (1.4-6.5); Neutrophils % (auto) 84.2 %; Platelet Count 415 K/uL (130-400); RDW Coefficient of Variation 15.3 % (11.5-14.5); RDW Standard Deviation 50.6 fL (36.4-46.3); Red Blood Count 4.07 M/uL (4.2-5.4); White Blood Count 8.73 K/uL (4.8-10.8)
--- NOTE | 2021-05-15 14:48 | Emergency Department Note ---
Impression & Plan Diffuse abdominal pain, RYLEE (acute kidney injury), Acute urinary retention, Abdominal distension, Ascites, Edema of left lower leg ED Provider Note NAME: LANA BRAR AGE: 85 SEX: F : 1935 ARRIVES VIA: Ambulance INFORMANT: [Patient][daughter] ED PROVIDER(S): [Goran Parsons MD] CHIEF COMPLAINT: Abdominal pain HISTORY OF PRESENT ILLNESS: The patient is an 85-year-old female presents to the ER with about a week of symptoms. Things have markedly worsened though in just the last 3 days. The patient is complaining of abdominal pain and the abdomen is distended. She has not had any urinary output for at least a day. No stool output for 3 days. The patient does have dementia so she is a terrible historian. The daughter who takes care of the patient and lives with the patient provides the history. In addition to the above complaints, the patient has had some increasing edema of her left lower extremity. No fever, no cough or congestion. The patient has a history of cholangitis, she still has her gallbladder though. Given the circumstances, no further history obtainable. REVIEW OF SYSTEMS: No further history obtainable given her dementia. PMHx/PSHx: See Below SOCIAL HISTORY: See Below. PHYSICAL EXAM: GENERAL: Patient is in significant distress from pain. Moaning. Very frail and thin. HEENT: No acute trauma, normocephalic atraumatic, mucous membranes moist, no nasal congestion, no scleral icterus. NECK: No stridor, no adenopathy, no meningismus, trachea is midline. LUNGS: Clear to auscultation bilaterally, no wheeze, no rhonchi, breath sounds equal. HEART: Without murmurs gallops or rubs, regular rate and rhythm. ABDOMEN: Distended, firm, diffusely tender abdomen. EXTREMITIES: No cyanosis. There is some moderate left lower extremity edema. NEUROLOGIC: Awake and alert, no acute motor or sensory deficits, no focal weakness. SKIN: No rash, no jaundice, no diaphoresis. DIFFERENTIAL DIAGNOSIS: Appendicitis, ovarian cyst, ovarian torsion, ectopic , TOA, PID, diverticulitis, UTI, obstruction, urinary retention, mesenteric ischemia, aortic pathology, inflammatory bowel disease, renal colic, PUD, pancreatitis, biliary pathology, hernia, volvulus, constipation, as well as other pathologies. EMERGENCY DEPARTMENT COURSE/PROCEDURES: ECG: Indication was abdominal pain. The ECG shows a normal sinus rhythm with a rate of 84. There are inverted T waves in the anterior and lateral leads. A PAC is present. There are no PVCs. The QTc is 456. Compared to an ECG from 10 December 2018, the anterior and lateral T wave changes are new. Continuous Cardiac Monitoring: An order was placed for continuous cardiac monitoring. The monitor shows a rate of 91 with normal sinus rhythm. Critical Care Note: I have personally spent 47 minutes of critical care time in the direct management of this patient. This includes bedside care, interpretation of diagnostic studies, and testing, discussion with consultants, patient, and family members, and other required patient management activities. This 47 minutes is in excess of all separately billable procedures. MEDICAL DECISION MAKING: There is no leukocytosis or concerning anemia. Platelet count is mildly elevated. Renal panel testing shows some acute kidney injury with a creatinine of 2.29. Sodium somewhat low at 135. Lactic acid level is not elevated making sepsis and bowel ischemia less likely. Alk phos mildly elevated, the remaining liver enzymes were unremarkable. Lipase was not elevated. ECG showed a normal sinus rhythm, no ST elevation. Cardiac enzyme testing x1 is not consistent with acute cardiac injury. Chest x-ray shows an elevated right hemidiaphragm, no pneumonia or free air. Urinalysis does not show evidence for infection. Covid testing returned negative. Abdominal and pelvis CT shows some ascites and a mass in the adnexa. No bowel obstruction. No free air. Bilateral lower e xtremity ultrasound is currently pending. On exam, the patient was quite uncomfortable. There was abdominal distention noted. Patient rapidly had a Joshi catheter placed, a significant amount of urine drained. The nursing staff initially drained around 2500 cc before clamping the Joshi. Since the Joshi was placed, the patient has had significant improvement with regard to her complaints and pain. The patient's blood pressure has improved since her pain is controlled. I did order for IV saline, 500 cc. She received some IV morphine and IV Zofran. I talked to the patient and her daughter, I spoke with case management. Given the acute kidney injury, given the significant urinary retention, given the findings on CT imaging, I do think further work-up in the hospital is warranted. The on-call hospitalist was consulted. Past Med/Surg History Medical History Adnexal mass Choledocholithiasis CKD (chronic kidney disease) Colitis Common bile duct dilatation + stone Dermoid tumor under surveillance Peripheral edema no further details Ulcerative colitis Surgical History H/O colonoscopy Hx of cholecystectomy Hx of endoscopic retrograde cholangiopancreatography with stent Social History Smoking Status: Never smoker Second Hand Exposure: No; Hx Alcohol Use: No Hx Substance Use: No Preferred Language: Citizen Of [place] Communication Ability: Impaired [place] Operator Required: Yes Beliefs That Will Affect Care: None Current Living Situation: Family Current Living Situation Comment: Lives with her daughter and her daughters - Madeline Feels Safe at Home: Yes Assistive Devices: Glasses Allergies Allergies Allergy/AdvReac Type Severity Reaction Status Date / Time lactose AdvReac Unknown Diarrhea Verified 02/13/19 07:35 Home Meds Home Medications Medication Instructions Recorded Confirmed acetaminophen 500 mg tablet 1,000 mg PO Q12H PRN 05/15/21 05/15/21 mesalamine 1.2 gram tablet,delayed 2.4 g PO DAILY 05/15/21 05/15/21 release Results & Data (ED) Vital Signs Vital Signs - 24 hr 05/15/21 14:12 05/15/21 14:40 05/15/21 15:00 Temperature 36.4 C L Temperature Source Oral Pulse Rate 91 H Pulse Rate [Right] 86 Pulse Rhythm Regular Pulse Rhythm [Right] Pulse Strength Normal Pulse Strength [Right] Respiratory Rate 20 24 Respiratory Effort / Characteristics Non-Labored Respiratory Depth Normal Respiratory Pattern Regular Blood Pressure 204/114 H Blood Pressure [Right Arm] 191/105 H Blood Pressure Mean 144 Blood Pressure Mean [Right Arm] 133 Blood Pressure Position [Right Arm] Pulse Oximetry 94 96 97 Oxygen Delivery Method Room Air Room Air Room Air Sepsis Recent Fever Within 48 Hours No Sepsis New/Unexplained Change in Mental Status Yes Sepsis Action Taken by Nursing No Action Required 05/15/21 16:00 05/15/21 16:07 05/15/21 16:30 Temperature Temperature Source Pulse Rate Pulse Rate [Right] 93 H 94 H 83 Pulse Rhythm Pulse Rhythm [Right] Regular Pulse Strength Pulse Strength [Right] Normal Respiratory Rate 20 18 18 Respiratory Effort / Characteristics Non-Labored Respiratory Depth Normal Normal Respiratory Pattern Blood Pressure Blood Pressure [Right Arm] 177/102 H 177/102 H 186/96 H Blood Pressure Mean Blood Pressure Mean [Right Arm] 127 127 126 Blood Pressure Position [Right Arm] Lying Lying Pulse Oximetry 96 97 95 Oxygen Delivery Method Room Air Room Air Room Air Sepsis Recent Fever Within 48 Hours Sepsis New/Unexplained Change in Mental Status Sepsis Action Taken by Nursing 05/15/21 17:00 05/15/21 17:30 Temperature Temperature Source Pulse Rate Pulse Rate [Right] 90 90 Pulse Rhythm Pulse Rhythm [Right] Pulse Strength Pulse Strength [Right] Respiratory Rate 18 20 Respiratory Effort / Characteristics Respiratory Depth Respiratory Pattern Blood Pressure Blood Pressure [Right Arm] 183/98 H 159/92 H Blood Pressure Mean Blood Pressure Mean [Right Arm] 126 114 Blood Pressure Position [Right Arm] Pulse Oximetry 95 95 Oxygen Delivery Method Room Air Room Air Sepsis Recent Fever Within 48 Hours Sepsis New/Unexplained Change in Mental Status Sepsis Action Taken by Residential Medications Current Medication List: was personally reviewed by me Laboratory Data Attestation: I reviewed the patient's lab results. Result diagrams: 05/15/21 14:25 05/15/21 14:25 Lab Results 05/15/21 05/15/21 05/15/21 Range/Units 14:25 14:25 14:49 WBC 8.73 (4.8-10.8) K/uL RBC 4.07 L (4.2-5.4) M/uL Hgb 12.0 (12.0-16.0) g/dL Hct 36.6 L (37-47) % MCV 89.9 (80-100) fL MCH 29.5 (25-34) pg MCHC 32.8 (32-36) g/dL RDW Std Deviation 50.6 H (36.4-46.3) fL RDW Coeff of Yasmany 15.3 H (11.5-14.5) % Plt Count 415 H (130-400) K/uL MPV 9.7 (7.4-10.4) fL Immature Gran % (Auto) 0.0 % Neut % (Auto) 84.2 % Lymph % (Auto) 8.8 % [place] % (Auto) 6.3 % Eos % (Auto) 0.5 % Baso % (Auto) 0.2 % Neut # (Auto) 7.35 H (1.4-6.5) K/uL Lymph # (Auto) 0.77 L (1.2-3.4) K/uL [place] # (Auto) 0.55 (0.11-0.59) K/uL Eos # (Auto) 0.04 (0-0.5) K/uL Baso # (Auto) 0.02 (0-0.2) K/uL Immature Gran # (Auto) 0.00 (0.00-0.02) K/uL Sodium 135 L (136-145) mmol/L Potassium 3.8 (3.5-5.1) mmol/L Chloride 104 (98-107) mmol/L Carbon Dioxide 20 L (21-32) mmol/L Anion Gap 11.0 (3-11) BUN 54 H (7-18) mg/dl Creatinine 2.29 H (0.6-1.2) mg/dl Est Cr Clr Drug Dosing 12.9 ml/min Est GFR ( Amer) 21.8 ml/min Est GFR (Non-Af Amer) 18.9 ml/min BUN/Creatinine Ratio 23.4 H (10-20) Glucose 114 H (70-99) mg/dl Lactate (0.4-2.0) mmol/L Calcium 9.0 (8.5-10.1) mg/dl Total Bilirubin 0.6 (0.2-1) mg/dl AST 32 (15-37) U/L ALT 26 (12-78) Alkaline Phosphatase 140 H D (45-117) U/L Troponin I < 0.015 (0-0.045) ng/ml Total Protein 7.9 (6.4-8.2) gm/dl Albumin 3.4 (3.4-5.0) gm/dl Globulin 4.5 H (2.5-4.0) gm/dl Albumin/Globulin Ratio 0.8 L (0.9-2) Lipase 69 L (73-393) U/L Urine Color Dark Yellow Urine Appearance Clear (Clear) Urine pH 5.5 (4.5-7.5) Ur Specific [place] 1.019 (1.000-1.030) Urine Protein Trace H (Negative) Urine Glucose (UA) Negative (Negative) Urine Ketones Negative (Negative) Urine Blood Negative (Negative) Urine Nitrite Negative (Negative) Urine Bilirubin Negative (Negative) Urine Urobilinogen Negative (Negative) Ur Leukocyte Esterase Negative (Negative) Urine WBC (Auto) 1-5 (0-5) /hpf Urine RBC (Auto) 5-10 H (0-4) /hpf U Hyaline Cast (Auto) 0 (0-5) /lpf U Epithel Cells (Auto) 0-5 (0-5) /lpf Urine Bacteria (Auto) Negative (Negative) SARS-CoV-2, RNA, NAAT (NEGATIVE) 05/15/21 05/15/21 Range/Units 15:08 16:53 WBC (4.8-10.8) K/uL RBC (4.2-5.4) M/uL Hgb (12.0-16.0) g/dL Hct (37-47) % MCV (80-100) fL MCH (25-34) pg MCHC (32-36) g/dL RDW Std Deviation (36.4-46.3) fL RDW Coeff of Yasmany (11.5-14.5) % Plt Count (130-400) K/uL MPV (7.4-10.4) fL Immature Gran % (Auto) % Neut % (Auto) % Lymph % (Auto) % [place] % (Auto) % Eos % (Auto) % Baso % (Auto) % Neut # (Auto) (1.4-6.5) K/uL Lymph # (Auto) (1.2-3.4) K/uL [place] # (Auto) (0.11-0.59) K/uL Eos # (Auto) (0-0.5) K/uL Baso # (Auto) (0-0.2) K/uL Immature Gran # (Auto) (0.00-0.02) K/uL Sodium (136-145) mmol/L Potassium (3.5-5.1) mmol/L Chloride (98-107) mmol/L Carbon Dioxide (21-32) mmol/L Anion Gap (3-11) BUN (7-18) mg/dl Creatinine (0.6-1.2) mg/dl Est Cr Clr Drug Dosing ml/min Est GFR ( Amer) ml/min Est GFR (Non-Af Amer) ml/min BUN/Creatinine Ratio (10-20) Glucose (70-99) mg/dl Lactate 1.5 (0.4-2.0) mmol/L Calcium (8.5-10.1) mg/dl Total Bilirubin (0.2-1) mg/dl AST (15-37) U/L ALT (12-78) Alkaline Phosphatase (45-117) U/L Troponin I (0-0.045) ng/ml Total Protein (6.4-8.2) gm/dl Albumin (3.4-5.0) gm/dl Globulin (2.5-4.0) gm/dl Albumin/Globulin Ratio (0.9-2) Lipase (73-393) U/L Urine Color Urine Appearance (Clear) Urine pH (4.5-7.5) Ur Specific [place] (1.000-1.030) Urine Protein (Negative) Urine Glucose (UA) (Negative) Urine Ketones (Negative) Urine Blood (Negative) Urine Nitrite (Negative) Urine Bilirubin (Negative) Urine Urobilinogen (Negative) Ur Leukocyte Esterase (Negative) Urine WBC (Auto) (0-5) /hpf Urine RBC (Auto) (0-4) /hpf U Hyaline Cast (Auto) (0-5) /lpf U Epithel Cells (Auto) (0-5) /lpf Urine Bacteria (Auto) (Negative) SARS-CoV-2, RNA, NAAT NEGATIVE (NEGATIVE) Administered Medications Morphine Sulfate (Morphine Sulfate 4 Mg/Ml 1 Ml Carp\Vial) 4 mg IV Q15M PRN PRN Reason: Pain Stop: 05/29/21 14:24 Last Admin: 05/15/21 15:16 Dose: 4 mg Documented by: [id number] Discontinued Medications Sodium Chloride (Nss) 500 mls @ 999 mls/hr IV .Q31M STA Stop: 05/15/21 14:55 Last Infusion: 05/15/21 15:47 Dose: 0 mls/hr Documented by: [id number] Admin: 05/15/21 15:16 Dose: 999 mls/hr Documented by: [id number] Ondansetron HCl (Ondansetron Inj 2 Mg/Ml 2 Ml Vial) 4 mg IV NOW STA Stop: 05/15/21 14:26 Last Admin: 12/20/21 15:16 Dose: 4 mg Documented by: [id number] Imaging Data Radiologist's Impression: Abdomen/Pelvis CT 05/15/21 14:25 CT OF THE ABDOMEN AND PELVIS WITHOUT CONTRAST CLINICAL HISTORY: Abdominal pain and distention. COMPARISON STUDY: CT of the abdomen pelvis December 09, 2018. MRCP December 13, 2018. TECHNIQUE: Axial images of the abdomen and pelvis were obtained without IV contrast. Images were reviewed in the axial, sagittal, and coronal planes. Automated exposure control was utilized for the study. A dose lowering technique was utilized adhering to the principles of ALARA. FINDINGS: Moderate cardiomegaly is noted. Groundglass opacities within the lower lungs favor atelectasis. No pneumatosis, free air or portal venous gas is present. This exam is compromised by motion artifact and lack of IV contrast. Unenhanced images of the liver, spleen, adrenal glands and pancreas are unremarkable. There is possible gas within the gallbladder. Alternatively, this could reflect a bowel loop. There is mild bilateral collecting system dilatation. Bladder wall thickening is noted. Joshi balloon within the bladder is noted. There is a 2 mm left renal calculus. There are no ureteral calculi. A small amount of abdominal and pelvic ascites is noted. Fluid measures just above water attenuation. Anasarca is also present. Of note, there is pronounced left thigh edema. In addition, there is mesenteric edema, most pronounced within the right aspect of the mesentery. Associated small bowel wall thickening is likely due to underdistention although an enteritis could appear similar. A large fat-containing pelvic mass, likely arising from the right ovary has increased in size since CT of December 09, 2018. This now measures approximately 15.3 x 9.5 cm. Calcified fibroid is incidentally noted. A small amount of fluid is noted within bilateral inguinal hernias. Prominent left hilar lymph nodes are likely benign. L1 and L2 compression fractures are new since prior exam but probably not acute. IMPRESSION: 1. Increase in size of a large fat-containing right adnexal mass suggestive of right ovarian dermoid cyst, measuring approximately 15.3 x 9.5 cm. Small amount of abdominal and pelvic ascites which measures above water attenuation. This ascites is nonspecific. Although no definite peritoneal fat, spontaneous rupture of the dermoid cannot be excluded. 2. Diffuse mesenteric infiltration, as described above. Wall thickening of adjacent small bowel loops is likely due to underdistention although a nonspecific enteritis could appear similar. A CT of the abdomen and pelvis with IV contrast is recommended for further evaluation. 3. Apparent gas within the gallbladder. Alternatively, this could represent a bowel loop. Underlying fistula to the gallbladder cannot be excluded and this could be assessed on the contrast-enhanced CT. 4. Body wall edema with pronounced left thigh edema. ACT 112: Negative or not required by law. Electronically signed by: Grant Berry M.D. 05/15/2021 4:16 PM Chest X-Ray 05/15/21 14:25 XR chest 1V portable CLINICAL HISTORY: abd pain. Evaluate lung bases COMPARISON STUDY: 12/12/2018 TECHNIQUE: 1 view of the chest FINDINGS: Single frontal view of the chest demonstrates the cardiomediastinal silhouette to be within normal limits. There is now asymmetric elevation of the right hemidiaphragm. The lungs are clear of alveolar opacities. There is no evidence for pleural effusion. There is no evidence for vascular congestion. There is no acute osseous pathology. IMPRESSION: No acute cardiopulmonary disease. Asymmetric elevation of the right hemidiaphragm. ACT 112: Negative or not required by law. Electronically signed by: Joseph Fagan M.D. 05/15/2021 3:09 PM Discharge Plan Visit Data Chief Complaint: Abdominal Pain ED Provider: Goran Parsons Discharge Problem: Diffuse abdominal pain, RYLEE (acute kidney injury), Acute urinary retention, Abdominal distension, Ascites, Edema of left lower leg Patient Disposition: Admitted As Inpatient Condition: Fair Forms Stand Alone Forms: [facility] Prescriptions Prescriptions: No Action mesalamine 1.2 gram tablet,delayed release (DR/EC) 2.4 g PO DAILY RF: 0 acetaminophen [Tylenol Ex Str Rapid Release] 500 mg Tablet 1,000 mg PO Q12H PRN (Reason: Fever Or Pain) RF: 0 Referrals Referrals: Genoveva Torrez DO [Primary Care Provider] -
[2021-05-15 15:02] LABS: Alanine Aminotransferase 26 (12-78); Albumin Level 3.4 gm/dl (3.4-5.0); Aspartate Aminotransferase 32 U/L (15-37); BUN Creatinine Ratio 23.4 (10-20); Blood Urea Nitrogen 54 mg/dl (7-18); Carbon Dioxide 20 mmol/L (21-32); Chloride 104 mmol/L (98-107); Creatinine Clr Calc Pharmacy 12.9 ml/min; Est GFR (African American) 21.8 ml/min; Est GFR (Non-African American) 18.9 ml/min; Glucose 114 mg/dl (70-99); Lipase 69 U/L (73-393); Potassium 3.8 mmol/L (3.5-5.1); Sodium 135 mmol/L (136-145)
[2021-05-15 15:07] LABS: Albumin Globulin Ratio 0.8 (0.9-2); Alkaline Phosphatase 140 U/L (45-117); Bilirubin,Total 0.6 mg/dl (0.2-1); Globulin 4.5 gm/dl (2.5-4.0); Total Protein 7.9 gm/dl (6.4-8.2); Troponin I < 0.015 ng/ml (0-0.045)
--- NOTE | 2021-05-15 15:10 | XRay Report ---
XR chest 1V portable CLINICAL HISTORY: abd pain. Evaluate lung bases COMPARISON STUDY: 12/12/2018 TECHNIQUE: 1 view of the chest FINDINGS: Single frontal view of the chest demonstrates the cardiomediastinal silhouette to be within normal li mits. There is now asymmetric elevation of the right hemidiaphragm. The lungs are clear of alveolar o pacities. There is no evidence for pleural effusion. There is no evidence for vascular congestion. Th ere is no acute osseous pathology. IMPRESSION: No acute cardiopulmonary disease. Asymmetric elevation of the right hemidiaphragm. ACT 112: Negative or not required by law. Electronically signed by: Joseph Fagan M.D. 05/15/2021 3:09 PM
[2021-05-15] MEDS: MoRPHine SULFATE 4 MG/ML 1 ML CARP\\VIAL IV PRN (15:16)
[2021-05-15 15:24] LABS: Appearance Urine Clear (Clear); Bacteria Urine Automated Negative (Negative); Bilirubin Urine Negative (Negative); Blood Urine Negative (Negative); Cast Urine Automated 0 /lpf (0-5); Color Urine Dark Yellow; Epithelial Cell Urine Auto 0-5 /lpf (0-5); Glucose Urine UA Negative (Negative); Ketones Urine Negative (Negative); Leukocyte Esterase Urine Negative (Negative); Nitrite Urine Negative (Negative); Protein Urine Trace (Negative); Specific Gravity Urine 1.019 (1.000-1.030); Urobilinogen Urine Negative (Negative); pH Urine 5.5 (4.5-7.5)
--- NOTE | 2021-05-15 16:17 | CT Scan Report ---
CT OF THE ABDOMEN AND PELVIS WITHOUT CONTRAST CLINICAL HISTORY: Abdominal pain and distention. COMPARISON STUDY: CT of the abdomen pelvis December 09, 2018. MRCP December 13, 2018. TECHNIQUE: Axial images of the abdomen and pelvis were obtained without IV contrast. Images were revi ewed in the axial, sagittal, and coronal planes. Automated exposure control was utilized for the ysabel dy. A dose lowering technique was utilized adhering to the principles of ALARA. FINDINGS: Moderate cardiomegaly is noted. Groundglass opacities within the lower lungs favor atelecta sis. No pneumatosis, free air or portal venous gas is present. This exam is compromised by motion art ifact and lack of IV contrast. Unenhanced images of the liver, spleen, adrenal glands and pancreas ar e unremarkable. There is possible gas within the gallbladder. Alternatively, this could reflect a bow el loop. There is mild bilateral collecting system dilatation. Bladder wall thickening is noted. Fole y balloon within the bladder is noted. There is a 2 mm left renal calculus. There are no ureteral puneet culi. A small amount of abdominal and pelvic ascites is noted. Fluid measures just above water attenu ation. Anasarca is also present. Of note, there is pronounced left thigh edema. In addition, there is mesenteric edema, most pronounced within the right aspect of the mesentery. Associated small bowel w all thickening is likely due to underdistention although an enteritis could appear similar. A large f at-containing pelvic mass, likely arising from the right ovary has increased in size since CT of December 09, 2018. This now measures approximately 15.3 x 9.5 cm. Calcified fibroid is incidentally noted. A small amount of fluid is noted within bilateral inguinal hernias. Prominent left hilar lymph nodes ar e likely benign. L1 and L2 compression fractures are new since prior exam but probably not acute. IMPRESSION: 1. Increase in size of a large fat-containing right adnexal mass suggestive of right ovarian dermoid cyst, measuring approximately 15.3 x 9.5 cm. Small amount of abdominal and pelvic ascites which measu res above water attenuation. This ascites is nonspecific. Although no definite peritoneal fat, sponta neous rupture of the dermoid cannot be excluded. 2. Diffuse mesenteric infiltration, as described above. Wall thickening of adjacent small bowel loops is likely due to underdistention although a nonspecific enteritis could appear similar. A CT of the abdomen and pelvis with IV contrast is recommended for further evaluation. 3. Apparent gas within the gallbladder. Alternatively, this could represent a bowel loop. Underlying fistula to the gallbladder cannot be excluded and this could be assessed on the contrast-enhanced CT. 4. Body wall edema with pronounced left thigh edema. ACT 112: Negative or not required by law. Electronically signed by: Grant Berry M.D. 05/15/2021 4:16 PM
--- NOTE | 2021-05-15 17:18 | History & Physical Report ---
Date of Service May 15, 2021 Assessment & Plan (1) Abdominal pain: (2) Urinary obstruction: (3) Adnexal mass: (4) Acute kidney injury superimposed on CKD: Plan: - Admit to med surg - Will consult urology due to significant bladder obstruction, over 3050 mL ur ine out s/p fagan insertion - Possibly due to increased size of adenexal mass now measuring 15.3 x 9.5 cm, interval increase in size since November 2018 when it was 11 x [address] scan -Consider gynecology consult for adnexal mass -2 years ago patient did not want surgical intervention performed, neither did daughter who was present at bedside - will require further discussion- concern for high risk with comorbidities, age and dementia that she would have poor outcome if underwent surgical procedure. Previous surgical interventions have been difficult on the patient ( ie. previous ERCP and gallbladder CBD stenting/stone removal), and pt daughter notes her dementia significantly worsened after that procedure. - Home health upon discharge - Avoid nephrotoxins and renally reduce medications -UA appears to be clear -Does not require antibiotics at this time as has no white count, afebrile (5) Ulcerative colitis: Plan: - Chronic, no acute flare. last BM 2-3 days ago, monitor - Hold mesalamine for now DVT ppx: - teds, scds, heparin subcu CODE: DNR/DNI Dispo: From home, likely to remain in the hospital x 1-2 days History of Present Illness Chief Complaint: Abdominal pain Primary Care Provider: Genoveva Torrez DO This is a non-Tongan speaking 85 yo F with PMHx of adnexal mass, CKD, ulcerative colitis, transaminitis, who presents with acute abdominal pain over the past 1 week. Last time she had a bowel movement was 2 to 3 days ago, the last time she was able to urinate was over 24 hours ago. Her bladder was significantly distended on imaging of the abdomen and decompression of the bladder occurred in the ER with over 3000 mL out. Pt daughter supplies the entire history due to the patient's dementia, and due to patient only speaking Irish on her "good days". Reports that she has been in pain for approximately the last week, with it worsening over the last 2 to 3 days. Her last bowel movement was 2 to 3 days ago, and therefore the daughter held mesalamine which they typically give her for ulcerative colitis diarrhea. She has not made any urine for the past 24 hours. Patient fairly physically active, motivated if instructed, however does not actively participate in ADLs due to her dementia. For example, it is getting so bad that she is putting her tights on over top of shoes. Daughter is the sole caregiver, and does not have any other help, however would like to know what services are available. She does note her mother dislikes doctors, hospitals and any medical appointment. At times she can be very "colorful" with her temper, body language, and yelling. Pt is currently in RYLEE with creatinine of 2.29, BUN 23. There is an adnexal mass measuring approximately 15.3 x 9.5 cm. Small amount of abdominal and pelvic ascites. There is diffuse mesenteric infiltration, with thickening of small bowel loops, and apparent gas within the gallbladder which could possibly be related to an underlying fistula. Allergies Allergy/AdvReac Type Severity Reaction Status Date / Time lactose AdvReac Mild Diarrhea Verified 05/18/21 19:22 Home Medications Medication Instructions Recorded Confirmed Type acetaminophen 325 mg tablet 650 mg PO Q8H PRN #1 tab 05/22/21 Rx amlodipine 5 mg tablet (Norvasc) 5 mg PO QAM #30 tab 05/22/21 Rx apixaban 5 mg tablet (Eliquis) See Rx Instructions .ROUTE 05/22/21 Rx .COMPLEX #60 tab bisacodyl 10 mg rectal suppository 10 mg HI DAILY PRN #12 ea 05/22/21 Rx lorazepam 0.5 mg tablet 0.5 mg PO Q8H PRN #14 tab 05/22/21 Rx morphine concentrate 100 mg/5 mL 5 mg PO Q6H PRN #30 ml 05/22/21 Rx (20 mg/mL) oral solution ondansetron HCl 4 mg tablet 4 mg PO Q6H PRN #20 tab 05/22/21 Rx (Zofran) polyethylene glycol 3350 17 gram 17 g PO DAILY #1 ea 05/22/21 Rx oral powder packet (Miralax) quetiapine 25 mg tablet 12.5 mg PO HS #30 tab 05/22/21 Rx sennosides 8.6 mg-docusate sodium 1 tab PO HS #1 tab 05/22/21 Rx 50 mg tablet (Senokot-S) Past Med/Surg History Medical History Adnexal mass Choledocholithiasis CKD (chronic kidney disease) Colitis Common bile duct dilatation + stone Dermoid tumor under surveillance Peripheral edema no further details Ulcerative colitis Surgical History H/O colonoscopy Hx of cholecystectomy Hx of endoscopic retrograde cholangiopancreatography with stent Social History Smoking Status: Never smoker Second Hand Exposure: No; Hx Alcohol Use: No Hx Substance Use: No Preferred Language: Irish Communication Ability: Impaired Communication Tools: Other Hedis Nurse Required: Yes Beliefs That Will Affect Care: None Current Living Situation: Family Current Living Situation Comment: Lives with her daughter and her daughters - Madeline Feels Safe at Home: Yes Assistive Devices: Walker Review of Systems Review of Systems: Unobtainable due to cognitive status Physical Exam Physical Exam: General: awake, alert, no apparent distress, + thin, eventually falls asleep during exam and initially being frightened. Head: Normocephalic, atraumatic ENT: PERRL, EOMI, no pharyngeal exudate, mucous membranes moist Chest: Clear to auscultation, on room air, no adventitious breath sounds Cardiac: Regular rate and rhythm, no murmur, no JVD, normal peripheral pulses, good capillary refill Abdominal: NABS x 4 quadrants, soft, nondistended, + guarding with minimal palpation, no rebound or guarding : fagan cath in place draining clear yellow urine Extremities: Normal inspection, no peripheral edema or erythema, calfs nontender to palpation Psych: Normal mood and affect Neuro: AAO x 3, no gross motor deficits, speech is clear, no peripheral sensory deficits Results & Data Results & Data ([facility]) Vital Signs (Past 12 Hours) Vital Signs Temp Pulse Pulse Resp BP BP Pulse Ox 05/15/21 16:30 83 18 186/96 H 95 05/15/21 16:07 94 H 18 177/102 H 97 05/15/21 16:00 93 H 20 177/102 H 96 05/15/21 15:00 86 24 191/105 H 97 05/15/21 14:40 96 12/20/21 14:12 36.4 C L 91 H 20 204/114 H 94 Laboratory Results 05/15/21 05/15/21 05/15/21 16:53 15:08 14:49 WBC RBC Hgb Hct MCV MCH MCHC RDW Std Deviation RDW Coeff of Yasmany Plt Count MPV Immature Gran % (Auto) Neut % (Auto) Lymph % (Auto) [place] % (Auto) Eos % (Auto) Baso % (Auto) Neut # (Auto) Lymph # (Auto) [place] # (Auto) Eos # (Auto) Baso # (Auto) Immature Gran # (Auto) Sodium Potassium Chloride Carbon Dioxide Anion Gap BUN Creatinine Est Cr Clr Drug Dosing Est GFR ( Amer) Est GFR (Non-Af Amer) BUN/Creatinine Ratio Glucose Lactate 1.5 Calcium Total Bilirubin AST ALT Alkaline Phosphatase Troponin I Total Protein Albumin Globulin Albumin/Globulin Ratio Lipase Urine Color Dark Yellow Urine Appearance Clear Urine pH 5.5 Ur Specific [place] 1.019 Urine Protein Trace H Urine Glucose (UA) Negative Urine Ketones Negative Urine Blood Negative Urine Nitrite Negative Urine Bilirubin Negative Urine Urobilinogen Negative Ur Leukocyte Esterase Negative Urine WBC (Auto) 1-5 Urine RBC (Auto) 5-10 H U Hyaline Cast (Auto) 0 U Epithel Cells (Auto) 0-5 Urine Bacteria (Auto) Negative SARS-CoV-2, RNA, NAAT NEGATIVE 05/15/21 05/15/21 14:25 14:25 WBC 8.73 RBC 4.07 L Hgb 12.0 Hct 36.6 L MCV 89.9 MCH 29.5 MCHC 32.8 RDW Std Deviation 50.6 H RDW Coeff of Yasmany 15.3 H Plt Count 415 H MPV 9.7 Immature Gran % (Auto) 0.0 Neut % (Auto) 84.2 Lymph % (Auto) 8.8 [place] % (Auto) 6.3 Eos % (Auto) 0.5 Baso % (Auto) 0.2 Neut # (Auto) 7.35 H Lymph # (Auto) 0.77 L [place] # (Auto) 0.55 Eos # (Auto) 0.04 Baso # (Auto) 0.02 Immature Gran # (Auto) 0.00 Sodium 135 L Potassium 3.8 Chloride 104 Carbon Dioxide 20 L Anion Gap 11.0 BUN 54 H Creatinine 2.29 H Est Cr Clr Drug Dosing 12.9 Est GFR ( Amer) 21.8 Est GFR (Non-Af Amer) 18.9 BUN/Creatinine Ratio 23.4 H Glucose 114 H Lactate Calcium 9.0 Total Bilirubin 0.6 AST 32 ALT 26 Alkaline Phosphatase 140 H D Troponin I < 0.015 Total Protein 7.9 Albumin 3.4 Globulin 4.5 H Albumin/Globulin Ratio 0.8 L Lipase 69 L Urine Color Urine Appearance Urine pH Ur Specific [place] Urine Protein Urine Glucose (UA) Urine Ketones Urine Blood Urine Nitrite Urine Bilirubin Urine Urobilinogen Ur Leukocyte Esterase Urine WBC (Auto) Urine RBC (Auto) U Hyaline Cast (Auto) U Epithel Cells (Auto) Urine Bacteria (Auto) SARS-CoV-2, RNA, NAAT Diagnostic Findings Abdomen/Pelvis CT 05/15/21 14:25 CT OF THE ABDOMEN AND PELVIS WITHOUT CONTRAST CLINICAL HISTORY: Abdominal pain and distention. COMPARISON STUDY: CT of the abdomen pelvis December 09, 2018. MRCP December 13, 2018. TECHNIQUE: Axial images of the abdomen and pelvis were obtained without IV contrast. Images were reviewed in the axial, sagittal, and coronal planes. Automated exposure control was utilized for the study. A dose lowering technique was utilized adhering to the principles of ALARA. FINDINGS: Moderate cardiomegaly is noted. Groundglass opacities within the lower lungs favor atelectasis. No pneumatosis, free air or portal venous gas is present. This exam is compromised by motion artifact and lack of IV contrast. Unenhanced images of the liver, spleen, adrenal glands and pancreas are unremarkable. There is possible gas within the gallbladder. Alternatively, this could reflect a bowel loop. There is mild bilateral collecting system dilatation. Bladder wall thickening is noted. Fagan balloon within the bladder is noted. There is a 2 mm left renal calculus. There are no ureteral calculi. A small amount of abdominal and pelvic ascites is noted. Fluid measures just above water attenuation. Anasarca is also present. Of note, there is pronounced left thigh edema. In addition, there is mesenteric edema, most pronounced within the right aspect of the mesentery. Associated small bowel wall thickening is likely due to underdistention although an enteritis could appear similar. A large fat- containing pelvic mass, likely arising from the right ovary has increased in size since CT of December 09, 2018. This now measures approximately 15.3 x 9.5 cm. Calcified fibroid is incidentally noted. A small amount of fluid is noted within bilateral inguinal hernias. Prominent left hilar lymph nodes are likely benign. L1 and L2 compression fractures are new since prior exam but probably not acute. IMPRESSION: 1. Increase in size of a large fat-containing right adnexal mass suggestive of right ovarian dermoid cyst, measuring approximately 15.3 x 9.5 cm. Small amount of abdominal and pelvic ascites which measures above water attenuation. This ascites is nonspecific. Although no definite peritoneal fat, spontaneous rupture of the dermoid cannot be excluded. 2. Diffuse mesenteric infiltration, as described above. Wall thickening of adjacent small bowel loops is likely due to underdistention although a nonspecific enteritis could appear similar. A CT of the abdomen and pelvis with IV contrast is recommended for further evaluation. 3. Apparent gas within the gallbladder. Alternatively, this could represent a bowel loop. Underlying fistula to the gallbladder cannot be excluded and this could be assessed on the contrast-enhanced CT. 4. Body wall edema with pronounced left thigh edema. ACT 112: Negative or not required by law. Electronically signed by: Grant Berry M.D. 05/15/2021 4:16 PM Chest X-Ray 05/15/21 14:25 XR chest 1V portable CLINICAL HISTORY: abd pain. Evaluate lung bases COMPARISON STUDY: 12/12/2018 TECHNIQUE: 1 view of the chest FINDINGS: Single frontal view of the chest demonstrates the cardiomediastinal silhouette to be within normal limits. There is now asymmetric elevation of the right hemidiaphragm. The lungs are clear of alveolar opacities. There is no evidence for pleural effusion. There is no evidence for vascular congestion. There is no acute osseous pathology. IMPRESSION: No acute cardiopulmonary disease. Asymmetric elevation of the right hemidiaphragm. ACT 112: Negative or not required by law. Electronically signed by: Joseph Fagan M.D. 05/15/2021 3:09 PM ECG Additional Comments: 15-MAY-2021 14:14:55 [facility]-EDSTAT ROUTINE RETRIEVAL Poor data quality, interpretation may be adversely affected Normal sinus rhythm with sinus arrhythmia ST & T wave abnormality, consider anterior ischemia Abnormal ECG When compared with ECG of 10-DEC-2018 06:59, Vent. rate has increased BY [address] now depressed in Inferior leads ST now depressed in Anterolateral leads T wave inversion now evident in Anterior leads 25mm/s 10mm/mV 150Hz 9.0.9 12SL 241 CHRIS: 16 Referred by: REFERRED SELF Unconfirmed Vent. rate 84 BPM HI interval 140 ms QRS duration 84 ms QT/QTc 386/456 ms Code Status & VTE Plan Code Status DNR/ DNI - discussed with daughter, LULU, at bedside VTE Prophylaxis Plan VTE Prophylaxis will be ordered: Yes Supervising Physician Co-Signing Physician Notes Pt was seen and examined. Agreed with Carolin WORLEY exam assessment and plan. 85 yo F non Tongan speaker with PMHx of adnexal mass, CKD, ulcerative colitis, transaminitis presents to the ER with acute abdominal pain for about 1 week. She has not been voided for the last 24 hrs and Last time she had a bowel movement was 2 to 3 days ago. Fagan was placed in the ER where 300ml urinate removed. CT abd/pelvis showed Increase in size of a large fat-containing right adnexal mass suggestive of right ovarian dermoid cyst, measuring approximately 15.3 x 9.5 cm. Small amount of abdominal and pelvic ascites which measures above water attenuation. Continue fagan cath, [employer] consult for the adnexal mass.Continue pain control. Will monitor closely. MD Ish (1) Abdominal pain Abdominal location: lower abdomen, unspecified Qualified Code(s): R10.30 - Lower abdominal pain, unspecified
[2021-05-15] MEDS ORDERED: ONDANSETRON INJ 2 MG/ML 2 ML VIAL IV PRN (18:02)
[2021-05-15] MEDS ORDERED: ACETAMINOPHEN 325 MG TAB PO PRN (18:02)
--- NOTE | 2021-05-15 19:25 | Urology Consultation ---
Date of Consultation May 15, 2021 Assessment & Plan (1) Acute urinary retention: The patient has been admitted on the hospitalist service. We recommend proceeding as follows: I suspect the patient's acute kidney injury may be a combination of decreased oral intake over the past 3 days in combination with urinary retention. Agree with placement of Joshi catheter for bladder decompression. Would recommend keeping bladder catheter in place for several days following which time a voiding trial can be attempted Recommend avoiding medicines that can result in urinary retention. No obvious offending agents were identified on the patient's home medication list It did not appear that the patient had a UTI on her urinalysis. Would recommend following for signs or symptoms of developing urinary tract infection particular with Joshi catheter in place Follow serial labs Remainder of plan as directed by the hospitalist service Additional recommendations will be forthcoming as her clinical course unfolds History of Present Illness Reason for Consultation: Urinary retention History of Present Illness This is an 85-year-old female who was brought to the emergency department by her daughter. It should be noted that the patient has underlying dementia and speaks only Bangladeshi. This consultation was performed in conjunction with a lengthy discussion via phone with the patient's daughter as well as review of records. Patient's daughter notes that she brought her mother to the emergency department due to acute abdominal pain that has been occurring over the past week. She notes that the pain is generalized in the abdomen. She cannot ascertain if there are any palliative or provocative factors and she could also not ascertain if there is any radiation of the pain. She notes that her mom is not had any nausea vomiting. She has not had a bowel movement in approximately 3 days. She also notes that her oral intake has been decreased over the past 3 days. She further relates that over the past 24 hours her mother has been unable to void. She does note in the several days preceding this she was only peeing's very small amounts. To the best of her knowledge there not been any noted fevers. She is unsure if there is been any weight loss. Because of the symptoms she presented to the emergency department as noted above. Upon arrival to the emergency department was felt that the patient's bladder was distended and therefore Joshi catheter was inserted with almost immediate return of approximately 3 L of urine. Today in the emergency department patient had labs and imaging which I independently reviewed. Chest x-ray was performed that showed no evidence of pneumonia or CHF. A CT scan of her abdomen pelvis showed that the patient had a large fat-containing right adnexal mass measuring 15.3 x 9.5 cm. The bladder was decompressed with a Joshi catheter however bladder wall thickening was noted. Mild dilation bilaterally of the renal collecting systems were noted. There is also a 2 mm left renal stone however no ureteral calculi were noted. Labs include a CBC her white blood cell count and hemoglobin were noted to be normal. Her hematocrit was 36.6. Platelet count was 415,000. A chemistry profile showed sodium was 135. Potassium was noted to be normal. Her BUN and creatinine were both elevated at 54 and 2.29. Both of these values represented an increase from her baseline. A urinalysis was not indicative of infection. A Covid test was performed and was noted to be negative. At the time of my exam of the patient she was resting in bed and did not appear to be in any distress. Allergies Allergy/AdvReac Type Severity Reaction Status Date / Time lactose AdvReac Unknown Diarrhea Verified 02/13/19 07:35 Home Medications Medication Instructions Recorded Confirmed Type acetaminophen 500 mg tablet 1,000 mg PO Q12H PRN 05/15/21 05/15/21 History mesalamine 1.2 gram tablet,delayed 2.4 g PO DAILY 05/15/21 05/15/21 History release Patient History Medical History Adnexal mass Choledocholithiasis CKD (chronic kidney disease) Colitis Common bile duct dilatation + stone Dermoid tumor under surveillance Peripheral edema no further details Ulcerative colitis Surgical History H/O colonoscopy Hx of cholecystectomy Hx of endoscopic retrograde cholangiopancreatography with stent Social History Smoking Status: Never smoker Second Hand Exposure: No; Hx Alcohol Use: No Hx Substance Use: No Preferred Language: Bangladeshi Communication Ability: Impaired Automotive Product Specialist Required: Yes Beliefs That Will Affect Care: None Current Living Situation: Family Current Living Situation Comment: Lives with her daughter and her daughters - Madeline Feels Safe at Home: Yes Assistive Devices: Glasses Review of Systems Review of Systems: Full review of systems was attempted however due to underlying dementia and language barrier this was unable to be completed. All information is as stated in the HPI and was obtained from the patient's daughter via phone conversation as well as review of records. Physical Exam Constitutional: well developed and well nourished; no acute distress Eyes: no conjunctival abnormality ENMT: Ears: no external ear abnormality Neck: trachea midline Respiratory: normal respiratory effort; no respiratory distress and no labored breathing Cardiovascular: Rate/Rhythm: regular rate and regular rhythm Gastrointestinal (Abdomen): Patient's abdomen is soft and nondistended. Palpation did not appear to elicit a pain response. Musculoskeletal: No apparent calf tenderness with squeezing Skin: normal turgor Neurologic: moves all extremities Results & Data ([facility]) Vital Signs (Past 12 Hours) Vital Signs Temp Pulse Pulse Resp BP BP Pulse Ox 05/15/21 17:30 90 20 159/92 H 95 05/15/21 17:00 90 18 183/98 H 95 05/15/21 16:30 83 18 186/96 H 95 05/15/21 16:07 94 H 18 177/102 H 97 05/15/21 16:00 93 H 20 177/102 H 96 05/15/21 15:00 86 24 191/105 H 97 05/15/21 14:40 96 05/15/21 14:12 36.4 C L 91 H 20 204/114 H 94 PG Care Time/CCT Total # of Minutes Spent Total Time Spent with Patient: Total time spent is greater than 50% in coordination of care (as documented) at patient's floor/unit and/or counseling patient: Coding Level of Care Code 91942 Inpt Consult Level 4 Diagnoses Acute urinary retention R33.8
[2021-05-15] MEDS: SODIUM CHLORIDE 0.9% 1000ML 1,000 ML IV SCH (19:45)
[2021-05-15] MEDS ORDERED: HEPARIN SOD 5,000 UNIT/0.5 ML VIAL SQ SCH (21:00)
[2021-05-16] MEDS: MoRPHine SULFATE 4 MG/ML 1 ML CARP\\VIAL IV PRN ×2 (04:10→17:48)
[2021-05-16] MEDS: SODIUM CHLORIDE 0.9% 1000ML 1,000 ML IV SCH (04:45)
[2021-05-16 06:30] LABS: Hematocrit (blood only) 32.6 % (37-47); Hemoglobin 10.5 g/dL (12.0-16.0); Mean Corpuscular Hemoglobin 28.7 pg (25-34); Mean Corpuscular Hgb Conc 32.2 g/dL (32-36); Mean Corpuscular Volume 89.1 fL (80-100); Mean Platelet Volume 9.8 fL (7.4-10.4); Platelet Count 360 K/uL (130-400); RDW Coefficient of Variation 15.1 % (11.5-14.5); RDW Standard Deviation 49.5 fL (36.4-46.3); Red Blood Count 3.66 M/uL (4.2-5.4)
--- NOTE | 2021-05-16 06:36 | Ultrasound Report ---
BILATERAL LOWER EXTREMITY VENOUS DOPPLER HISTORY: Acute pain and swelling of the lower extremities edema COMPARISON STUDY: None. FINDINGS: Limited study secondary to patient movement throughout the study. Subcutaneous edema. Left inguinal chain lymph nodes measure up to 3.1 x 0.9 x 2.1 cm. There is normal compressibility, flow, a nd augmentation within the bilateral lower extremity deep venous systems. IMPRESSION: No DVT within the right or left lower extremity. ACT 112: Negative or not required by law. Electronically signed by: Greg Carreon M.D. 05/16/2021 6:34 AM
--- NOTE | 2021-05-16 06:46 | Communication Note ---
Date of Service: May 16, 2021 Made aware of initial LE venous Dopplers read: Suspect deep vein thrombosis of left peroneal vein. No right deep vein thrombosis. There is nonspecific soft tissue edema of the left calf. AP LLE DVT IV heparin for now
[2021-05-16 07:10] LABS: Albumin Level 2.3 gm/dl (3.4-5.0); BUN Creatinine Ratio 38.2 (10-20); Calcium 8.1 mg/dl (8.5-10.1); Creatinine Clr Calc Pharmacy 44.1 ml/min; Est GFR (African American) 92.9 ml/min; Est GFR (Non-African American) 80.2 ml/min; Potassium 3.6 mmol/L (3.5-5.1)
[2021-05-16 07:11] LABS: Partial Thromboplastin Ratio 1.2
[2021-05-16] MEDS ORDERED: HEPARIN 25000 UNIT/500 ML D5W IV ONE (07:18)
[2021-05-16 07:20] LABS: Albumin Globulin Ratio 0.7 (0.9-2); Bilirubin,Total 0.6 mg/dl (0.2-1); Globulin 3.4 gm/dl (2.5-4.0); Total Protein 5.7 gm/dl (6.4-8.2)
[2021-05-16] MEDS: HEPARIN SODIUM/DEXTROSE 25,000 UNITS/500 ML BAG IV SCH (07:30)
[2021-05-16] MEDS: Heparin IV Adult Wt-Based Standard *NO* Bolus Protocol IV SCH ×2 (07:30→12:49)
[2021-05-16 07:43] LABS: Estimated Average Glucose 103 mg/dl; Hemoglobin A1C 5.2 % (4.5-5.6)
--- NOTE | 2021-05-16 10:26 | Hospitalist Progress Note ---
Date of Service May 16, 2021 Assessment & Plan (1) Abdominal pain: (2) Urinary obstruction: (3) Adnexal mass: (4) Acute kidney injury superimposed on CKD: Plan: 85 yr old F with hx of ulcerative colitis and dementia who presents to ED 2/2 to abd pain, unable to urinate and constipation. Pt is estonian speaking. She refuses commissioner of officials and given dementia unable to cooperate with commissioner of officials. Daughter at bedside. Acute urinary retention Admit to med surg urology consulted due to urinary retention and significant outpt s/p fagan insertion Urology recommends continued fagan cath for several days prior to TOV, avoid anticholinergics, no UTI, this is likely source of RYLEE and possibly due to increasing size Adnexal Mass Urine output is adequate R adenexal mass Increase in size of a large fat-containing right adnexal mass suggestive of right ovarian dermoid cyst, measuring approximately 15.3 x 9.5 cm. Small amount of abdominal and pelvic ascites which measures above water attenuation. This ascites is nonspecific. Although no definite peritoneal fat, spontaneous rupture of the dermoid cannot be excluded. SUPERVISOR TREE TRIMMING consulted - discussed with daughter at bedside, pt was seen by SUPERVISOR TREE TRIMMING in 06/28 to similar finding; however now enlarging and possible causing urinary obstruction will await SUPERVISOR TREE TRIMMING input - appreciate their assistance for now keep fagan cath in place RYLEE cr on admit 2.29 now resolved, 0.67 likely 2/2 to obstructive uropathy avoid nephrotoxic agents continue oral intake, off IVF Acute L peroneal DVT pt with LLE edema continue IV Heparin - discussed with daughter at bedside regarding coumadin vs eliquis and she wishes to go with eliquis once appropriate to transition will continue IV heparin until seen by SUPERVISOR TREE TRIMMING - at that time will consider transition to eliquis (5) Ulcerative colitis: Plan: Chronic, no acute flare. last BM 2-3 days ago, monitor Hold mesalamine for now DVT ppx: d/c teds in setting of acute dvt on IV heparin CODE: DNR/DNI PCP: Shan Dispo: Possible rehab/snf, daughter feels uncomfortable caring for pt at home with catheter given dementia Pt was seen and examined in collaboration with Dr. Deng, please see addendum The chart was completed utilizing [employer] voice recognition software. Grammatical errors, random word insertions, pronoun errors, and incomplete sentences are an occasional consequence of this system due to software limitations, ambient noise, and hardware issues. Any formal questions or concerns about the content, text, or information contained within the body of this dictation should be directly addressed to the provider for clarification. Admission and Anticipated Discharge Date Admission Date: May 15, 2021 Supervising Physician Co-Signing Physician Notes Pt was seen and examined. Agreed with Loyda WORLEY exam assessment and plan. 85 yo F non Chinese speaker with PMHx of adnexal mass, CKD, ulcerative colitis, transaminitis presents to the ER with acute abdominal pain for about 1 week. She has not been voided for the last 24 hrs and Last time she had a bowel movement was 2 to 3 days ago. Fagan was placed in the ER where 300ml urinate removed. CT abd/pelvis showed Increase in size of a large fat-containing right adnexal mass suggestive of right ovarian dermoid cyst, measuring approximately 15.3 x 9.5 cm. Small amount of abdominal and pelvic ascites which measures above water attenuation. Urology on board and recommended to discharge home with the fagan cath. Daughter will prefer her not to discharge with the fagan due to dementia that can cause her to pull it. SUPERVISOR TREE TRIMMING on board pending. Continue pain control. Will monitor closely. MD Ish Subjective Seen in C3 Follow up obstructive uropathy/nephropathy and Large Ovarian mass. ROS unobtainable given cognition. Daughter at bedside. Review of Systems Review of Systems: Unobtainable due to cognitive status Physical Exam Physical Exam: Gen: Elderly, F, Alert but not oriented, NAD HEENT: Normocephalic, atraumatic, conjunctivae moist, sclerae anicteric, mucous membranes moist. Lung: Clear to Auscultation bilaterally, no wheezes/rales/rhonchi Heart: Regular rate, regular rhythm, no murmurs, rubs, or gallops Abdomen: Soft, grimaces to palpation throughout abd, ND +BS x 4, no rebound or guarding Extremities:LLE edema, no erythema, or pain to palpation Skin: Warm, no rash, negative turgor. Results & Data Results & Data ([facility]) Vital Signs (Past 12 Hours) Vital Signs Pulse Resp BP Pulse Ox Pulse Ox 05/16/21 10:02 101 H 17 154/99 H 93 95 05/16/21 06:16 87 15 117/68 92 05/16/21 01:51 92 H 19 138/90 94 05/16/21 00:04 94 05/15/21 23:37 86 20 145/83 H 94 Laboratory Results Short CBC 05/15/21 05/16/21 Range/Units 14:25 05:59 WBC 8.73 10.70 (4.8-10.8) K/uL Hgb 12.0 10.5 L (12.0-16.0) g/dL Hct 36.6 L 32.6 L (37-47) % Plt Count 415 H 360 (130-400) K/uL BMP 05/15/21 05/16/21 14:25 05:59 Sodium 135 L 140 Potassium 3.8 3.6 Chloride 104 110 H Carbon Dioxide 20 L 23 BUN 54 H 26 H D Creatinine 2.29 H 0.67 D Glucose 114 H 84 Calcium 9.0 8.1 L Cardiac Enzymes 05/15/21 Range/Units 14:25 Troponin I < 0.015 (0-0.045) ng/ml Liver Function 05/15/21 05/16/21 Range/Units 14:25 05:59 Total Bilirubin 0.6 0.6 (0.2-1) mg/dl AST 32 23 (15-37) U/L ALT 26 20 (12-78) Alkaline Phosphatase 140 H D 98 (45-117) U/L Albumin 3.4 2.3 L (3.4-5.0) gm/dl Urine 05/15/21 Range/Units 14:49 Urine Color Dark Yellow Urine Appearance Clear (Clear) Urine pH 5.5 (4.5-7.5) Ur Specific Galva 1.019 (1.000-1.030) Urine Protein Trace H (Negative) Urine Glucose (UA) Negative (Negative) Diagnostic Findings Abdomen/Pelvis CT 05/15/21 14:25 CT OF THE ABDOMEN AND PELVIS WITHOUT CONTRAST CLINICAL HISTORY: Abdominal pain and distention. COMPARISON STUDY: CT of the abdomen pelvis December 09, 2018. MRCP December 13, 2018. TECHNIQUE: Axial images of the abdomen and pelvis were obtained without IV contrast. Images were reviewed in the axial, sagittal, and coronal planes. Automated exposure control was utilized for the study. A dose lowering techniqu e was utilized adhering to the principles of ALARA. FINDINGS: Moderate cardiomegaly is noted. Groundglass opacities within the lower lungs favor atelectasis. No pneumatosis, free air or portal venous gas is present. This exam is compromised by motion artifact and lack of IV contrast. Unenhanced images of the liver, spleen, adrenal glands and pancreas are unremarkable. There is possible gas within the gallbladder. Alternatively, this could reflect a bowel loop. There is mild bilateral collecting system dilatation. Bladder wall thickening is noted. Fagan balloon within the bladder is noted. There is a 2 mm left renal calculus. There are no ureteral calculi. A small amount of abdominal and pelvic ascites is noted. Fluid measures just above water attenuation. Anasarca is also present. Of note, there is pronounced left thigh edema. In addition, there is mesenteric edema, most pronounced within the right aspect of the mesentery. Associated small bowel wall thickening is likely due to underdistention although an enteritis could appear similar. A large fat- containing pelvic mass, likely arising from the right ovary has increased in size since CT of December 09, 2018. This now measures approximately 15.3 x 9.5 cm. Calcified fibroid is incidentally noted. A small amount of fluid is noted within bilateral inguinal hernias. Prominent left hilar lymph nodes are likely benign. L1 and L2 compression fractures are new since prior exam but probably not acute. IMPRESSION: 1. Increase in size of a large fat-containing right adnexal mass suggestive of right ovarian dermoid cyst, measuring approximately 15.3 x 9.5 cm. Small amount of abdominal and pelvic ascites which measures above water attenuation. This ascites is nonspecific. Although no definite peritoneal fat, spontaneous rupture of the dermoid cannot be excluded. 2. Diffuse mesenteric infiltration, as described above. Wall thickening of adjacent small bowel loops is likely due to underdistention although a nonspecific enteritis could appear similar. A CT of the abdomen and pelvis with IV contrast is recommended for further evaluation. 3. Apparent gas within the gallbladder. Alternatively, this could represent a b owel loop. Underlying fistula to the gallbladder cannot be excluded and this could be assessed on the contrast-enhanced CT. 4. Body wall edema with pronounced left thigh edema. ACT 112: Negative or not required by law. Electronically signed by: Grant Berry M.D. 05/15/2021 4:16 PM Chest X-Ray 05/15/21 14:25 XR chest 1V portable CLINICAL HISTORY: abd pain. Evaluate lung bases COMPARISON STUDY: 12/12/2018 TECHNIQUE: 1 view of the chest FINDINGS: Single frontal view of the chest demonstrates the cardiomediastinal silhouette to be within normal limits. There is now asymmetric elevation of the right hemidiaphragm. The lungs are clear of alveolar opacities. There is no evidence for pleural effusion. There is no evidence for vascular congestion. There is no acute osseous pathology. IMPRESSION: No acute cardiopulmonary disease. Asymmetric elevation of the right hemidiaphragm. ACT 112: Negative or not required by law. Electronically signed by: Joseph Fagan M.D. 05/15/2021 3:09 PM Venous Doppler Study 05/15/21 16:29 BILATERAL LOWER EXTREMITY VENOUS DOPPLER HISTORY: Acute pain and swelling of the lower extremities edema COMPARISON STUDY: None. FINDINGS: Limited study secondary to patient movement throughout the study. Subcutaneous edema. Left inguinal chain lymph nodes measure up to 3.1 x 0.9 x 2.1 cm. There is normal compressibility, flow, and augmentation within the bilateral lower extremity deep venous systems. IMPRESSION: No DVT within the right or left lower extremity. Upon further review of the case, there is a suspected deep venous thrombus within the left peroneal vein. ACT 112: Negative or not required by law. Electronically signed by: Greg Carreon M.D. 05/16/2021 6:34 AM Medications Administered Current Inpatient Medications Acetaminophen (Acetaminophen 325 Mg Tab) 650 mg PO Q4H PRN PRN Reason: Moderate Pain Stop: 06/14/21 18:01 Last Admin: 05/16/21 10:27 Dose: 650 mg Documented by: Heparin Sodium/Dextrose (Heparin Sodium/Dextrose) 25,000 units in 500 mls @ 18 mls/hr IV .Q24H [facility]; Protocol Stop: 06/15/21 07:29 Last Admin: 05/16/21 07:30 Dose: 900 units/hr, 18 mls/hr Documented by: Miscellaneous (Order Awaiting Action [Mesalamine 1.2 Gram Tablet,Delayed Release (Dr/Ec)]) 1 ea N/A QS [facility] Stop: 06/15/21 00:00 Last Admin: 05/16/21 00:12 Dose: Not Given Documented by: Morphine Sulfate (Morphine Sulfate 4 Mg/Ml 1 Ml Carp\Vial) 4 mg IV Q15M PRN PRN Reason: Pain Stop: 05/29/21 14:24 Last Admin: 05/16/21 04:10 Dose: 4 mg Documented by: Ondansetron HCl (Ondansetron Inj 2 Mg/Ml 2 Ml Vial) 4 mg IV Q4H PRN PRN Reason: Nausea And Vomiting Stop: 06/14/21 18:01 (1) Abdominal pain Abdominal location: lower abdomen, unspecified Qualified Code(s): R10.30 - Lower abdominal pain, unspecified
[2021-05-16] MEDS ORDERED: LORazepam 0.5 MG/1 ML VIAL IV STA (11:04)
--- NOTE | 2021-05-16 11:32 | Urology Progress Note ---
Date of Service May 16, 2021 Assessment & Plan (1) Acute urinary retention: (2) RYLEE (acute kidney injury): Plan: 85yo F who presented with abdominal pain and was admitted with RYLEE, urinary retention, and adnexal mass. - Plan of care reviewed with Dr. Og, on-call urologist. - Urology consulted due to urinary retention and significant output s/p Joshi insertion. - Joshi catheter placed on admission with >3L of urine output. - Urinary retention likely secondary to increasing size of adnexal mass causing urinary obstruction. - Pt is afebrile. - Labs reviewed - Wbc normal, Creatinine improved to 0.67 (2.29 on admission) - Will continue to trend - Urinalysis on admission not indicative of infection. - Recommend maintaining Joshi catheter for now until plan for adnexal mass is determined as removing sooner may result in retention of urine again. - Will arrange outpatient follow-up with urology for continued care and voiding trial. - Continue supportive care and management per primary team. - Will continue to follow peripherally. Please contact us with any further questions or concerns. Admission and Anticipated Discharge Date Admission Date: May 15, 2021 Subjective Pt examined at bedside this AM. Awake, resting in bed on arrival. No acute distress. Patient has underlying dementia and speaks only South [place]ese.Daughter at bedside who translates. Joshi intact, draining clear yellow urine. ROS unobtainable due to cognitive status. Review of Systems Review of Systems: Unobtainable due to cognitive status Physical Exam Constitutional: no acute distress Respiratory: no respiratory distress and no labored breathing Gastrointestinal (Abdomen): Soft, generalized abdominal tenderness with palpation. Musculoskeletal: Head/Neck/Chest: normocephalic Skin: No visible rashes or lesions to exposed skin areas Neurologic: moves all extremities and awake Psychiatric: Orientation: alert Genitourinary: Joshi intact and draining clear yellow urine Results & Data ([facility]) Vital Signs (Past 12 Hours) Vital Signs Pulse Resp BP Pulse Ox Pulse Ox 05/16/21 10:02 101 H 17 154/99 H 93 95 05/16/21 06:16 87 15 117/68 92 05/16/21 01:51 92 H 19 138/90 94 05/16/21 00:04 94 05/15/21 23:37 86 20 145/83 H 94 PG Care Time/CCT Total # of Minutes Spent Total Time Spent with Patient: Total time spent is greater than 50% in coordination of care (as documented) at patient's floor/unit and/or counseling patient: Coding Level of Care Code 02252 Subseq Hosp Care Lvl 2 Diagnoses Acute urinary retention R33.8 RYLEE (acute kidney injury) N17.9
[2021-05-16 14:30] LABS: Partial Thromboplastin Ratio 3.1
[2021-05-16 14:44] LABS: Partial Thromboplastin Time 81.7 Seconds (21.0-31.0)
[2021-05-16 21:58] LABS: Partial Thromboplastin Ratio 3.1
[2021-05-16 22:16] LABS: Partial Thromboplastin Time 81.7 Seconds (21.0-31.0)
[2021-05-17 05:17] LABS: Hemoglobin 10.1 g/dL (12.0-16.0); Mean Corpuscular Hemoglobin 28.7 pg (25-34); Mean Corpuscular Hgb Conc 32.6 g/dL (32-36); Mean Corpuscular Volume 88.1 fL (80-100); Mean Platelet Volume 9.6 fL (7.4-10.4); Platelet Count 344 K/uL (130-400); RDW Coefficient of Variation 15.4 % (11.5-14.5); RDW Standard Deviation 49.5 fL (36.4-46.3); Red Blood Count 3.52 M/uL (4.2-5.4); White Blood Count 8.56 K/uL (4.8-10.8)
[2021-05-17 05:36] LABS: Partial Thromboplastin Ratio 2.4
[2021-05-17 05:45] LABS: Albumin Level 1.9 gm/dl (3.4-5.0); BUN Creatinine Ratio 33.1 (10-20); Calcium 8.1 mg/dl (8.5-10.1); Creatinine Clr Calc Pharmacy 61.5 ml/min; Est GFR (African American) 103.7 ml/min; Est GFR (Non-African American) 89.4 ml/min
[2021-05-17 06:08] LABS: Albumin Globulin Ratio 0.5 (0.9-2); Bilirubin,Total 0.4 mg/dl (0.2-1); Globulin 3.6 gm/dl (2.5-4.0); Total Protein 5.5 gm/dl (6.4-8.2)
[2021-05-17 06:12] LABS: Partial Thromboplastin Time 64.1 Seconds (21.0-31.0)
--- NOTE | 2021-05-17 08:11 | Consultation Report ---
DATE OF CONSULTATION: 05/16/2021 REASON FOR ADMISSION: Abdominal discomfort, history of urinary retention. HISTORY OF PRESENT ILLNESS: The patient is an 85-year-old 3, para 1. 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 I saw her in the ICU in the hospital in 2019. At that time, the patient refused operation, it was seen on the sca n to be a benign dermoid. Presently is being admitted with abdominal pain and discomfort and urinary retention with a residual of over 2000 mL. Presently, she has a Joshi inserted and it is draining wel l. Her CAT scan revealed increased size in the right-sided abdominal tumor. It looks like a dermoid and she does have a small amount of abdominal fluid. PAST SURGICAL HISTORY: She had her gallbladder removed about 2 years ago. PAST MEDICAL HISTORY: She has a history of colitis. SOCIAL HISTORY: No smoking, no excessive alcohol intake. 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 FAMILY HISTORY: She has 1 child. Mom at age 72 of an IN. Father at age 73, tuberculosis, heart attack. She had one sister that about 10 years ago of dementia. REVIEW OF SYSTEMS: HEAD: No symptoms of frequent or severe headaches. GASTROINTESTINAL: She does have problems with abdominal pain and discomfort. PHYSICAL EXAMINATION: HEART: Regular rhythm. S1 and S2 are normal. LUNGS: Clear to auscultation and percussion. ABDOMEN: Moderately tender. EXTREMITIES: There was some swelling of her left calf. IMPRESSIONS OF THIS CASE: Status post cholecystectomy, urinary retention, right-sided ovarian tumor increasing in size and moderate amount of abdominal ascites. Job ID: [id number]
[2021-05-17] MEDS: MoRPHine SULFATE 4 MG/ML 1 ML CARP\\VIAL IV PRN ×3 (10:24→22:40)
[2021-05-17] MEDS ORDERED: QUEtiapine FUMARATE 25 MG TABLET PO ONE (10:45)
[2021-05-17] MEDS ORDERED: LORazepam 0.5 MG/1 ML VIAL IV PRN (11:25)
[2021-05-17] MEDS: HEPARIN SODIUM/DEXTROSE 25,000 UNITS/500 ML BAG IV SCH (12:56)
--- NOTE | 2021-05-17 13:36 | Hospitalist Progress Note ---
Date of Service May 17, 2021 Assessment & Plan (1) Abdominal pain: (2) Urinary obstruction: (3) Adnexal mass: (4) Acute kidney injury superimposed on CKD: Plan: 85 yr old F with hx of ulcerative colitis and dementia who presents to ED 06/28 to abd pain, unable to urinate and constipation. Pt is canadian speaking. Daughter at bedside. Acute urinary retention Likely due to increasing right ovarian tumor RYLEE Likely due to urinary retention/obstructive, now resolved Urologist recommendations appreciated. Continue Joshi R adenexal mass Increase in size of a large fat-containing right adnexal mass suggestive of right ovarian dermoid cyst, measuring approximately 15.3 x 9.5 cm. REGULATORY INTERNSHIP consulted - discussed with daughter at bedside, pt was seen by REGULATORY INTERNSHIP in 2019 06/28 to similar finding; Right ovarian tumor increasing in size Gynecology recommendations noted. Daughter reported that account information clerk recommended that patient is not a candidate for surgery. Started the goals of care discussion with daughter. She is interested in possible comfort care on discharge at home but would like to discuss with palliative specialist and case filler about resources. Palliative consult ordered. senior brand manager notified Pain control Acute L peroneal DVT Pt with LLE edema Currently on IV heparin. Discussed with daughter that she may have to consider discontinuing anticoagulation if going home on home hospice. She wants to continue current treatment and make that decision later after further conversations with palliative care team and case filler. Hypokalemia today. Replete and monitor (5) Ulcerative colitis: Plan: Chronic, no acute flare. Monitor Hold mesalamine for now CODE: DNR/DNI PCP: Shan Dispo: Possible home hospice Admission and Anticipated Discharge Date Admission Date: May 15, 2021 Subjective 85 yo Tanzanian speaking woman with PMHx of adnexal mass, CKD, ulcerative colitis, transaminitis, who presents with acute abdominal pain over the past 1 week Being managed for Abdominal pain, acute urinary retention, right ovarian tumor Patient seen and examined today. Was agitated earlier and was pulling lines. Could not give any po meds. Had to get dose of Ativan. Review of systems limited due to mental status./Cognitive impairment Currently calm. Reports pain in the abdomen Daughter was at bedside. Physical Exam Constitutional: + ill appearing, + well hydrated and + thin; no acute distress Eyes: PERRL, conjunctivae normal, anicteric sclerae ENMT: external ear and nose normal, oropharynx normal Respiratory: normal respiratory effort, lungs clear to auscultation Cardiovascular: Rate/Rhythm: regular rate and regular rhythm S1-S2 Gastrointestinal (Abdomen): Mildly distended. Generalized tenderness BS+ Musculoskeletal: no cyanosis or clubbing, extremities motor strength 5/5 Left leg edema Neurologic: Confused. Cooperative with exam Psychiatric: Confused Results & Data Results & Data ([facility]) Vital Signs (Past 12 Hours) Vital Signs Temp Pulse Resp BP Pulse Ox 05/17/21 07:45 37.1 C 89 18 148/76 H 91 Laboratory Results Abnormal lab results 05/16/21 05/17/21 05/17/21 Range/Units 21:20 04:32 04:32 RBC 3.52 L (4.2-5.4) M/uL Hgb 10.1 L (12.0-16.0) g/dL Hct 31.0 L (37-47) % RDW Std Deviation 49.5 H (36.4-46.3) fL RDW Coeff of Yasmany 15.4 H (11.5-14.5) % APTT 81.7 H* 64.1 H* (21.0-31.0) Seconds Potassium (3.5-5.1) mmol/L Chloride (98-107) mmol/L Creatinine (0.6-1.2) mg/dl BUN/Creatinine Ratio (10-20) Calcium (8.5-10.1) mg/dl Total Protein (6.4-8.2) gm/dl Albumin (3.4-5.0) gm/dl Albumin/Globulin Ratio (0.9-2) 05/17/21 Range/Units 04:32 RBC (4.2-5.4) M/uL Hgb (12.0-16.0) g/dL Hct (37-47) % RDW Std Deviation (36.4-46.3) fL RDW Coeff of Yasmany (11.5-14.5) % APTT (21.0-31.0) Seconds Potassium 3.0 L D (3.5-5.1) mmol/L Chloride 110 H (98-107) mmol/L Creatinine 0.48 L (0.6-1.2) mg/dl BUN/Creatinine Ratio 33.1 H (10-20) Calcium 8.1 L (8.5-10.1) mg/dl Total Protein 5.5 L (6.4-8.2) gm/dl Albumin 1.9 L (3.4-5.0) gm/dl Albumin/Globulin Ratio 0.5 L (0.9-2) (1) Abdominal pain Abdominal location: lower abdomen, unspecified Qualified Code(s): R10.30 - Lower abdominal pain, unspecified
[2021-05-17] MEDS ORDERED: POTASSIUM CHLORIDE CRTAB 20 MEQ TABCR PO STA (14:57)
[2021-05-17] MEDS: POTASSIUM ACETATE/NSS 10 MEQ/105 ML BAG IV SCH ×2 (15:32→16:27)
[2021-05-17] MEDS ORDERED: OLANZapine 10 MG/2.1 ML SDV IM STA (23:17)
[2021-05-18] MEDS: MoRPHine SULFATE 4 MG/ML 1 ML CARP\\VIAL IV PRN (05:37)
--- NOTE | 2021-05-18 05:42 | Electrocardiogram Report ---
Test Reason : Blood Pressure : / mmHG Vent. Rate : 084 BPM Atrial Rate : 084 BPM P-R Int : 140 ms QRS Dur : 084 ms QT Int : 386 ms P-R-T Axes : 046 -27 -18 degrees QTc Int : 456 ms Poor data quality, interpretation may be adversely affected Normal sinus rhythm with sinus arrhythmia Abnormal ECG When compared with ECG of 10-DEC-2018 06:59, Vent. rate has increased BY [address] now depressed in Inferior leads ST now depressed in Anterolateral leads T wave inversion now evident in Anterior leads Confirmed by Jaaml Daly ([id number]) on 05/18/2021 5:41:36 AM Referred By: REFERRED SELF Confirmed By:Jamal Daly
[2021-05-18 09:18] LABS: Hematocrit (blood only) 30.5 % (37-47); Mean Corpuscular Hemoglobin 28.9 pg (25-34); Mean Corpuscular Hgb Conc 32.8 g/dL (32-36); Mean Corpuscular Volume 88.2 fL (80-100); Mean Platelet Volume 9.4 fL (7.4-10.4); Platelet Count 335 K/uL (130-400); RDW Coefficient of Variation 15.2 % (11.5-14.5); RDW Standard Deviation 49.2 fL (36.4-46.3); Red Blood Count 3.46 M/uL (4.2-5.4); White Blood Count 5.07 K/uL (4.8-10.8)
[2021-05-18 09:43] LABS: Partial Thromboplastin Ratio 1.9
[2021-05-18 09:45] LABS: BUN Creatinine Ratio 28.9 (10-20); Calcium 8.2 mg/dl (8.5-10.1); Creatinine Clr Calc Pharmacy 67.1 ml/min; Est GFR (African American) 106.7 ml/min; Magnesium 1.6 mg/dl (1.8-2.4)
[2021-05-18 09:48] LABS: Albumin Globulin Ratio 0.6 (0.9-2); Globulin 3.3 gm/dl (2.5-4.0); Phosphorus 2.4 mg/dl (2.5-4.9); Total Protein 5.3 gm/dl (6.4-8.2)
[2021-05-18 09:54] LABS: Partial Thromboplastin Time 48.8 Seconds (21.0-31.0)
[2021-05-18 10:12] LABS: Bilirubin,Total 0.5 mg/dl (0.2-1)
--- NOTE | 2021-05-18 11:44 | Hospitalist Progress Note ---
Date of Service May 18, 2021 Assessment & Plan (1) Abdominal pain: (2) Urinary obstruction: (3) Adnexal mass: (4) Acute kidney injury superimposed on CKD: Plan: 85 yr old F with hx of ulcerative colitis and dementia who presents to ED 06/28 to abd pain, unable to urinate and constipation. Pt is american speaking. Daughter at bedside. Acute urinary retention Likely due to increasing right ovarian tumor RYLEE Likely due to urinary retention/obstructive, now resolved Urologist recommendations appreciated. Continue Joshi R adenexal mass Increase in size of a large fat-containing right adnexal mass suggestive of right ovarian dermoid cyst, measuring approximately 15.3 x 9.5 cm. OIL FIELD RIG BUILDER consulted - discussed with daughter at bedside, pt was seen by OIL FIELD RIG BUILDER in 2019 06/28 to similar finding; Right ovarian tumor increasing in size Gynecology recommendations noted. Daughter reported that manager of project management discussed with her and recommended that patient is not a candidate for surgery. Pain control CM working with daughter on home hospice Patient also has delirium episodes. Daughter reports she believes she has dementia due to memory problems over the years IV morphine changed to po Started on seroquel 12.5mg HS Acute L peroneal DVT Pt with LLE edema Daughter will like to dc on eliquis. Provided education and eliquis ordered Hypokalemia today. Replete and monitor (5) Ulcerative colitis: Plan: Chronic, no acute flare. Monitor Hold mesalamine for now CODE: DNR/DNI PCP: Shan Dispo: Possible home hospice Admission and Anticipated Discharge Date Admission Date: May 15, 2021 Subjective 85 yo Peruvian speaking woman with PMHx of adnexal mass, CKD, ulcerative colitis, transaminitis, who presents with acute abdominal pain over the past 1 week Being managed for Abdominal pain, acute urinary retention, right ovarian tumor Patient seen and examined today. Review of systems limited due to mental status/Cognitive impairment Daughter was at bedside. Physical Exam Constitutional: + ill appearing, + well hydrated and + thin; no acute distress Eyes: PERRL, conjunctivae normal, anicteric sclerae ENMT: external ear and nose normal, oropharynx normal Respiratory: normal respiratory effort, lungs clear to auscultation Cardiovascular: Rate/Rhythm: regular rate and regular rhythm S1 S2 Gastrointestinal (Abdomen): Soft, nondistended, right sided abd tenderness, +BS Musculoskeletal: no cyanosis or clubbing, extremities motor strength 5/5 Neurologic: PERRL, EOMI, accommodation nl, no face palsy, no dysarthria Results & Data Results & Data ([facility]) Vital Signs (Past 12 Hours) Vital Signs Temp Pulse Resp BP Pulse Ox 05/18/21 07:18 36.4 C L 87 16 187/82 H 91 Laboratory Results Abnormal lab results 05/18/21 05/18/21 05/18/21 Range/Units 09:03 09:03 09:03 RBC 3.46 L (4.2-5.4) M/uL Hgb 10.0 L (12.0-16.0) g/dL Hct 30.5 L (37-47) % RDW Std Deviation 49.2 H (36.4-46.3) fL RDW Coeff of Yasmany 15.2 H (11.5-14.5) % APTT 48.8 H* (21.0-31.0) Seconds Potassium 3.0 L (3.5-5.1) mmol/L Chloride 108 H (98-107) mmol/L Creatinine 0.44 L (0.6-1.2) mg/dl BUN/Creatinine Ratio 28.9 H (10-20) Calcium 8.2 L (8.5-10.1) mg/dl Phosphorus 2.4 L (2.5-4.9) mg/dl Magnesium 1.6 L (1.8-2.4) mg/dl Total Protein 5.3 L (6.4-8.2) gm/dl Albumin 2.0 L (3.4-5.0) gm/dl Albumin/Globulin Ratio 0.6 L (0.9-2) (1) Abdominal pain Abdominal location: lower abdomen, unspecified Qualified Code(s): R10.30 - Lower abdominal pain, unspecified
[2021-05-18] MEDS ORDERED: POTASSIUM CHLORIDE CRTAB 20 MEQ TABCR PO STA (12:35)
[2021-05-18] MEDS ORDERED: POTASSIUM PHOS 3 MMOL/1 ML INFUSION IV STA (12:35)
[2021-05-18] MEDS ORDERED: POTASSIUM PHOSPHATE 21 MMOL in SODIUM CHLORIDE 0.9% 500 ML IV ONE (12:45)
[2021-05-18] MEDS: MAGNESIUM SULFATE / D5W 1 GM/100 ML BAG IV SCH ×2 (13:08→14:57)
[2021-05-18] MEDS: HEPARIN SODIUM/DEXTROSE 25,000 UNITS/500 ML BAG IV SCH (13:18)
[2021-05-18] MEDS: MoRPHine SULFATE 5 MG/0.25 ML UDP PO PRN (14:52)
[2021-05-18] MEDS ORDERED: OLANZapine 10 MG/2.1 ML SDV IM STA ×2 (15:22→19:19)
[2021-05-18] MEDS ORDERED: OLANZapine 10 MG/2.1 ML SDV IM PRN (18:23)
[2021-05-18] MEDS: APIXABAN 5 MG TABLET PO SCH (19:51)
[2021-05-18] MEDS: QUEtiapine FUMARATE 25 MG TABLET PO SCH (19:51)
[2021-05-19 06:07] LABS: Mean Corpuscular Hemoglobin 28.3 pg (25-34); Mean Corpuscular Hgb Conc 32.3 g/dL (32-36); Mean Corpuscular Volume 87.8 fL (80-100); Mean Platelet Volume 9.5 fL (7.4-10.4); Platelet Count 394 K/uL (130-400); RDW Standard Deviation 48.5 fL (36.4-46.3); Red Blood Count 3.53 M/uL (4.2-5.4); White Blood Count 4.45 K/uL (4.8-10.8)
[2021-05-19 06:39] LABS: BUN Creatinine Ratio 21.5 (10-20); Calcium 7.9 mg/dl (8.5-10.1); Creatinine Clr Calc Pharmacy 72.1 ml/min; Est GFR (African American) 109.2 ml/min; Est GFR (Non-African American) 94.2 ml/min; Potassium 3.3 mmol/L (3.5-5.1)
[2021-05-19] MEDS: MoRPHine SULFATE 5 MG/0.25 ML UDP PO PRN ×2 (07:26→16:14)
[2021-05-19] MEDS: APIXABAN 5 MG TABLET PO SCH ×2 (09:17→19:45)
--- NOTE | 2021-05-19 10:23 | Electrocardiogram Report ---
Test Reason : Blood Pressure : / mmHG Vent. Rate : 093 BPM Atrial Rate : 093 BPM P-R Int : 136 ms QRS Dur : 088 ms QT Int : 388 ms P-R-T Axes : 002 -18 023 degrees QTc Int : 482 ms Sinus rhythm with Premature atrial complexes Poor R wave progression, consider anterior CO vs. lead placement vs. LVH Abnormal ECG When compared with ECG of 15-MAY-2021 14:14, Premature atrial complexes are now Present Nonspecific T wave abnormality, improved in Inferior leads Confirmed by Elias Rich ([id number]) on 05/19/2021 10:22:23 AM Referred By: REFERRED SELF Confirmed By:Elias Rich
[2021-05-19] MEDS ORDERED: DOCUSATE SODIUM 100 MG CAP PO ONE (11:15)
[2021-05-19] MEDS: POLYETHYLENE (MIRALAX) 17 GM PACK PO SCH (12:35)
--- NOTE | 2021-05-19 14:53 | Hospitalist Progress Note ---
Date of Service May 19, 2021 Assessment & Plan (1) Abdominal pain: (2) Urinary obstruction: (3) Adnexal mass: (4) Acute kidney injury superimposed on CKD: Plan: 85 yr old F with hx of ulcerative colitis and dementia who presents to ED / to abd pain, unable to urinate and constipation. Pt is somali speaking. Daughter at bedside. Acute urinary retention Likely due to increasing right ovarian tumor RYLEE Likely due to urinary retention/obstructive. RYLEE now resolved Urologist recommendations appreciated. Daughter asking if we can do voiding trial. Will do voiding trial as if successful will avoid continous fagan which will help daughter take care of patient at home R adenexal mass Increase in size of a large fat-containing right adnexal mass suggestive of right ovarian dermoid cyst, measuring approximately 15.3 x 9.5 cm. HEALTH AND SAFETY COORDINATOR consulted - discussed with daughter at bedside, pt was seen by HEALTH AND SAFETY COORDINATOR in 06/28 to similar finding; Right ovarian tumor increasing in size Gynecology recommendations noted. Daughter reported that remedial reading teacher discussed with her and recommended that patient is not a candidate for surgery. Continue Pain control CM working with daughter on home hospice. Plan for possible dc on saturday Confusion likely due to delirium/ metabolic encephalopathy in the setting of possible dementia (based on daughter's hx) + medication effects Continue seroquel 12.5mg HS Acute L peroneal DVT Currently on eliquis Daughter will like to dc on eliquis. Hypokalemia today. Replete and monitor Constipation. Has not had a BM. Started on bowel regimen (5) Ulcerative colitis: Plan: Chronic, no acute flare. Monitor Hold mesalamine for now CODE: DNR/DNI PCP: Shan Dispo: Possible home hospice on Saturday Admission and Anticipated Discharge Date Admission Date: May 15, 2021 Subjective 85 yo Swiss speaking woman with PMHx of adnexal mass, CKD, ulcerative colitis, transaminitis, who presents with acute abdominal pain over the past 1 week Being managed for Abdominal pain, acute urinary retention, right ovarian tumor Patient seen and examined today. Review of systems limited due to mental status/Cognitive impairment Patient currently confused Daughter was at bedside. Physical Exam Constitutional: + ill appearing, + well hydrated and + thin; no acute distress Eyes: PERRL, conjunctivae normal, anicteric sclerae ENMT: external ear and nose normal, oropharynx normal Respiratory: normal respiratory effort, lungs clear to auscultation Cardiovascular: Rate/Rhythm: regular rate and regular rhythm S1 S2 Gastrointestinal (Abdomen): Soft, not distended, tenderness mostly on RUQ/RLQ, +BS Musculoskeletal: no cyanosis or clubbing, extremities motor strength 5/5 Neurologic: PERRL, EOMI, accommodation nl, no face palsy, no dysarthria Genitourinary: Fagan in situ Results & Data Results & Data ([facility]) Vital Signs (Past 12 Hours) Vital Signs Temp Pulse Resp BP Pulse Ox 05/19/21 07:18 36.5 C 90 18 91 05/19/21 05:31 36.6 C 84 18 164/84 H 92 Laboratory Results Abnormal lab results 05/19/21 05/19/21 Range/Units 05:34 05:34 WBC 4.45 L (4.8-10.8) K/uL RBC 3.53 L (4.2-5.4) M/uL Hgb 10.0 L (12.0-16.0) g/dL Hct 31.0 L (37-47) % RDW Std Deviation 48.5 H (36.4-46.3) fL RDW Coeff of Yasmany 15.0 H (11.5-14.5) % Potassium 3.3 L (3.5-5.1) mmol/L Creatinine 0.41 L (0.6-1.2) mg/dl BUN/Creatinine Ratio 21.5 H (10-20) Calcium 7.9 L (8.5-10.1) mg/dl (1) Abdominal pain Abdominal location: lower abdomen, unspecified Qualified Code(s): R10.30 - Lower abdominal pain, unspecified
--- NOTE | 2021-05-19 15:10 | CT Scan Report ---
CT head/brain wo con CLINICAL HISTORY: AMS COMPARISON STUDY: No previous studies for comparison. CT DOSE: 655.73 mGy.cm TECHNIQUE: Standard CT of the Brain was performed without IV contrast. A dose lowering technique was utilized adhering to the principles of ALARA. FINDINGS: Extraaxial space: There is no evidence for subdural hematoma. There are no extra-axial fluid collecti ons. Ventricles and cisterns: The ventricles are mildly dilated bilaterally. There is no evidence for mid line shift or mass effect. Parenchyma: There is no subarachnoid or intraparenchymal hemorrhage. There is no evidence for an acu te infarct or cerebral edema. There is mild cerebral cortical atrophy and decreased attenuation in th e periventricular white matter representing remote small vessel disease. There are no gross mass lesi ons. Osseous structures: There is no evidence for an acute fracture. There is prominent mucosal thickening involving the left maxillary antrum and multiple left ethmoid air cells. The remaining visualized pa ranasal sinuses are clear. The mastoid air cells are clear bilaterally. Soft tissues: There is no evidence for focal soft tissue swelling. Vasculature: There is significant atherosclerotic calcification of the vertebral arteries and basilar artery. IMPRESSION: No acute intracerebral pathology. Mild cerebral cortical atrophy and remote small vessel disease. Vascular calcification. Chronic left maxillary and ethmoid sinusitis. ACT 112: Negative or not required by law. Electronically signed by: Joseph Fagan M.D. 05/19/2021 3:09 PM
[2021-05-19] MEDS: POTASSIUM CHLORIDE / WTR 10 MEQ/100 ML PLCT IV SCH ×3 (18:28→21:40)
[2021-05-19] MEDS ORDERED: OLANZapine 10 MG/2.1 ML SDV IM STA (19:33)
[2021-05-19] MEDS: QUEtiapine FUMARATE 25 MG TABLET PO SCH (19:45)
[2021-05-19] MEDS ORDERED: OLANZapine 10 MG/2.1 ML SDV IM ONE (23:00)
[2021-05-20 08:44] LABS: Hematocrit (blood only) 35.8 % (37-47); Hemoglobin 11.7 g/dL (12.0-16.0); Mean Corpuscular Hgb Conc 32.7 g/dL (32-36); Mean Corpuscular Volume 88.8 fL (80-100); Mean Platelet Volume 9.7 fL (7.4-10.4); Platelet Count 463 K/uL (130-400); RDW Standard Deviation 48.7 fL (36.4-46.3); Red Blood Count 4.03 M/uL (4.2-5.4); White Blood Count 5.56 K/uL (4.8-10.8)
[2021-05-20] MEDS: APIXABAN 5 MG TABLET PO SCH ×2 (08:44→20:58)
[2021-05-20] MEDS: POLYETHYLENE (MIRALAX) 17 GM PACK PO SCH (08:44)
[2021-05-20] MEDS: MoRPHine SULFATE 5 MG/0.25 ML UDP PO PRN ×2 (08:50→16:35)
[2021-05-20 09:06] LABS: BUN Creatinine Ratio 20.3 (10-20); Creatinine Clr Calc Pharmacy 64.2 ml/min; Est GFR (African American) 105.1 ml/min; Est GFR (Non-African American) 90.7 ml/min; Potassium 3.8 mmol/L (3.5-5.1)
[2021-05-20] MEDS: amLODIPine BESYLATE 5 MG TAB PO SCH (09:24)
[2021-05-20] MEDS ORDERED: bisacodyL 10 MG SUPP PR PRN (11:11)
--- NOTE | 2021-05-20 11:15 | Hospitalist Progress Note ---
Date of Service May 20, 2021 Assessment & Plan (1) Abdominal pain: (2) Urinary obstruction: (3) Adnexal mass: (4) Acute kidney injury superimposed on CKD: Plan: 85 yr old F with hx of ulcerative colitis and dementia who presents to ED / to abd pain, unable to urinate and constipation. Pt is anguillan speaking. Daughter at bedside. Acute urinary retention Likely due to increasing right ovarian tumor RYLEE Likely due to urinary retention/obstructive. RYLEE now resolved Urologist recommendations appreciated. Will attempt voiding trial as if successful will avoid continuos fagan which will help daughter take care of patient at home. RN notified R adenexal mass Increase in size of a large fat-containing right adnexal mass suggestive of right ovarian dermoid cyst, measuring approximately 15.3 x 9.5 cm. WOODWORKING SHOP HAND consulted - discussed with daughter at bedside, pt was seen by WOODWORKING SHOP HAND in 06/28 to similar finding; Right ovarian tumor increasing in size Gynecology recommendations noted. Daughter reported that plant director discussed with her and recommended that patient is not a candidate for surgery. Continue Pain control CM working with daughter on home hospice. Plan for possible dc on saturday Confusion likely due to delirium/ metabolic encephalopathy in the setting of possible dementia (based on daughter's hx) + medication effects Continue seroquel 12.5mg HS Daughter had a lot of questions which were answered to her satisfaction Acute L peroneal DVT Currently on eliquis Daughter will like to dc on eliquis. Continue bowel regime (5) Ulcerative colitis: Plan: Chronic, no acute flare. Monitor Hold mesalamine for now CODE: DNR/DNI PCP: Shan Dispo: Possible home hospice on Saturday Admission and Anticipated Discharge Date Admission Date: May 15, 2021 Subjective 85 yo Puerto Rican speaking woman with PMHx of adnexal mass, CKD, ulcerative colitis, transaminitis, who presents with acute abdominal pain over the past 1 week Being managed for Abdominal pain, acute urinary retention, right ovarian tumor Patient seen and examined today. Review of systems limited due to mental status/Cognitive impairment Patient currently sleeping but awakes to call and during exam Daughter was at bedside. Physical Exam Constitutional: + ill appearing, + well hydrated and + thin; no acute distress Eyes: PERRL, conjunctivae normal, anicteric sclerae ENMT: external ear and nose normal, oropharynx normal Respiratory: normal respiratory effort, lungs clear to auscultation Cardiovascular: Rate/Rhythm: regular rate and regular rhythm S1 S2 Gastrointestinal (Abdomen): Soft not distended, tenderness, BS+ Musculoskeletal: no cyanosis or clubbing, extremities motor strength 5/5 Neurologic: PERRL, EOMI, accommodation nl, no face palsy, no dysarthria Results & Data Results & Data ([facility]) Vital Signs (Past 12 Hours) Vital Signs Temp Pulse Resp BP Pulse Ox 05/20/21 10:20 144/90 H 05/20/21 08:17 36.7 C 92 H 16 176/91 H 92 Laboratory Results Abnormal lab results 05/20/21 05/20/21 Range/Units 07:59 07:59 RBC 4.03 L (4.2-5.4) M/uL Hgb 11.7 L (12.0-16.0) g/dL Hct 35.8 L (37-47) % RDW Std Deviation 48.7 H (36.4-46.3) fL RDW Coeff of Yasmany 15.0 H (11.5-14.5) % Plt Count 463 H (130-400) K/uL Creatinine 0.46 L (0.6-1.2) mg/dl BUN/Creatinine Ratio 20.3 H (10-20) Calcium 8.0 L (8.5-10.1) mg/dl (1) Abdominal pain Abdominal location: lower abdomen, unspecified Qualified Code(s): R10.30 - Lower abdominal pain, unspecified
[2021-05-20] MEDS: QUEtiapine FUMARATE 25 MG TABLET PO SCH (20:58)
[2021-05-20] MEDS: DOCUSATE SODIUM/SENNA 50/8.6MG TAB PO SCH (21:02)
[2021-05-20] MEDS ORDERED: OLANZapine 10 MG/2.1 ML SDV IM STA (23:26)
[2021-05-21] MEDS: APIXABAN 5 MG TABLET PO SCH ×2 (08:24→20:20)
[2021-05-21] MEDS: MoRPHine SULFATE 5 MG/0.25 ML UDP PO PRN (08:24)
[2021-05-21] MEDS: POLYETHYLENE (MIRALAX) 17 GM PACK PO SCH (08:24)
[2021-05-21] MEDS: amLODIPine BESYLATE 5 MG TAB PO SCH (08:28)
[2021-05-21 09:14] LABS: BUN Creatinine Ratio 22.3 (10-20); Calcium 8.6 mg/dl (8.5-10.1); Creatinine Clr Calc Pharmacy 50.9 ml/min; Est GFR (African American) 97.4 ml/min; Potassium 4.7 mmol/L (3.5-5.1)
[2021-05-21] MEDS ORDERED: SOD PHOSPHATE/SOD BIPHOSPHATE ENEMA 132 ML BTL PR STA (09:59)
--- NOTE | 2021-05-21 10:38 | Hospitalist Progress Note ---
Date of Service May 21, 2021 Assessment & Plan (1) Abdominal pain: (2) Urinary obstruction: (3) Adnexal mass: (4) Acute kidney injury superimposed on CKD: Plan: 85 yr old F with hx of ulcerative colitis and dementia who presents to ED 2/ to abd pain, unable to urinate and constipation. Pt is english speaking. Daughter at bedside. Acute urinary retention Likely due to increasing right ovarian tumor RYLEE Likely due to urinary retention/obstructive. RYLEE now resolved Urologist recommendations appreciated. Failed voiding trial yesterday Will discharge on fagan R adenexal mass Increase in size of a large fat-containing right adnexal mass suggestive of right ovarian dermoid cyst, measuring approximately 15.3 x 9.5 cm. PLANNING MANAGER consulted - discussed with daughter at bedside, pt was seen by PLANNING MANAGER in 06/28 to similar finding; Right ovarian tumor increasing in size Gynecology recommendations noted. Daughter reported that physiatrist discussed with her and recommended that patient is not a candidate for surgery. Continue Pain control CM working with daughter on home hospice. Plan for possible dc tomorrow on home hospice Confusion likely due to delirium/ metabolic encephalopathy in the setting of possible dementia (based on daughter's hx) + medication effects Continue seroquel 12.5mg HS Constipation likely due to medication effect and not moving around much. Continue bowel regimen. Will try enema if patient is agreeable Acute L peroneal DVT Currently on eliquis Daughter will like to dc on eliquis. Continue bowel regime (5) Ulcerative colitis: Plan: Chronic, no acute flare. Monitor Hold mesalamine for now CODE: DNR/DNI PCP: Shan Dispo: Possible home hospice tomorrow Admission and Anticipated Discharge Date Admission Date: May 15, 2021 Subjective 85 yo Namibian speaking woman with PMHx of adnexal mass, CKD, ulcerative colitis, transaminitis, who presents with acute abdominal pain over the past 1 week Being managed for Abdominal pain, acute urinary retention, right ovarian tumor Patient seen today Review of systems limited due to mental status/Cognitive impairment Daughter was at bedside. Physical Exam Physical Exam: Patient laying calmly She is confused. She declined to be examined. Exam deferred for now Results & Data Results & Data ([facility]) Vital Signs (Past 12 Hours) Vital Signs Temp Pulse Resp BP Pulse Ox 05/21/21 08:28 36.4 C L 80 18 166/84 H 93 Laboratory Results Abnormal lab results 05/21/21 Range/Units 08:02 Creatinine 0.58 L (0.6-1.2) mg/dl BUN/Creatinine Ratio 22.3 H (10-20) (1) Abdominal pain Abdominal location: lower abdomen, unspecified Qualified Code(s): R10.30 - Lower abdominal pain, unspecified
[2021-05-21] MEDS: QUEtiapine FUMARATE 25 MG TABLET PO SCH (20:19)
[2021-05-21] MEDS: DOCUSATE SODIUM/SENNA 50/8.6MG TAB PO SCH (20:20)
[2021-05-22] MEDS ORDERED: OLANZapine 10 MG/2.1 ML SDV IM STA (00:42)
[2021-05-22] MEDS ORDERED: OLANZapine 10 MG/2.1 ML SDV IM ONE (00:47)
[2021-05-22] MEDS: POLYETHYLENE (MIRALAX) 17 GM PACK PO SCH (08:28)
[2021-05-22] MEDS: APIXABAN 5 MG TABLET PO SCH (08:28)
[2021-05-22] MEDS: amLODIPine BESYLATE 5 MG TAB PO SCH (08:29)
[2021-05-22] MEDS ORDERED: LORazepam 0.5 MG/1 ML VIAL IV STA (11:03)
--- NOTE | 2021-05-22 15:30 | Discharge Summary ---
Date of Service May 22, 2021 Admission HPI Per Admitting Provider This is a non-Cambodian speaking 85 yo F with PMHx of adnexal mass, CKD, ulcerative colitis, transaminitis, who presents with acute abdominal pain over the past 1 week. Last time she had a bowel movement was 2 to 3 days ago, the last time she was able to urinate was over 24 hours ago. Her bladder was significantly distended on imaging of the abdomen and decompression of the bladder occurred in the ER with over 3000 mL out. Pt daughter supplies the entire history due to the patient's dementia, and due to patient only speaking Andorran on her "good days". Reports that she has been in pain for approximately the last week, with it worsening over the last 2 to 3 days. Her last bowel movement was 2 to 3 days ago, and therefore the daughter held mesalamine which they typically give her for ulcerative colitis diarrhea. She has not made any urine for the past 24 hours. Patient fairly physically active, motivated if instructed, however does not actively participate in ADLs due to her dementia. For example, it is getting so bad that she is putting her tights on over top of shoes. Daughter is the sole caregiver, and does not have any other help, however would like to know what services are available. She does note her mother dislikes doctors, hospitals and any medical appointment. At times she can be very "colorful" with her temper, body language, and yelling. Pt is currently in RYLEE with creatinine of 2.29, BUN 23. There is an adnexal mass measuring approximately 15.3 x 9.5 cm. Small amount of abdominal and pelvic ascites. There is diffuse mesenteric infiltration, with thickening of small bowel loops, and apparent gas within the gallbladder which could possibly be related to an underlying fistula. Admission Exam Per Admitting Provider General: awake, alert, no apparent distress, + thin, eventually falls asleep during exam and initially being frightened. Head: Normocephalic, atraumatic ENT: PERRL, EOMI, no pharyngeal exudate, mucous membranes moist Chest: Clear to auscultation, on room air, no adventitious breath sounds Cardiac: Regular rate and rhythm, no murmur, no JVD, normal peripheral pulses, good capillary refill Abdominal: NABS x 4 quadrants, soft, nondistended, + guarding with minimal palpation, no rebound or guarding : fagan cath in place draining clear yellow urine Extremities: Normal inspection, no peripheral edema or erythema, calfs nontender to palpation Psych: Normal mood and affect Neuro: AAO x 3, no gross motor deficits, speech is clear, no peripheral sensory deficits Principal Diagnosis 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 Discharge Data Allergies Allergy/AdvReac Type Severity Reaction Status Date / Time lactose AdvReac Mild Diarrhea Verified 05/18/21 19:22 Consultations Urology SUPERVISOR ROLLING ROOM Palliative care Ordered Studies 05/15/2021 CT ABD/pelvis IMPRESSION: 1. Increase in size of a large fat-containing right adnexal mass suggestive of right ovarian dermoid cyst, measuring approximately 15.3 x 9.5 cm. Small amount of abdominal and pelvic ascites which measures above water attenuation. This ascites is nonspecific. Although no definite peritoneal fat, spontaneous rupture of the dermoid cannot be excluded. 2. Diffuse mesenteric infiltration, as described above. Wall thickening of adjacent small bowel loops is likely due to underdistention although a nonspecific enteritis could appear similar. A CT of the abdomen and pelvis with IV contrast is recommended for further evaluation. 3. Apparent gas within the gallbladder. Alternatively, this could represent a bowel loop. Underlying fistula to the gallbladder cannot be excluded and this could be assessed on the contrast-enhanced CT. 4. Body wall edema with pronounced left thigh edema. 05/15/2021 CXR IMPRESSION: No acute cardiopulmonary disease. Asymmetric elevation of the right hemidiaphragm. 05/15/2021 BL LE venous Doppler impression: suspected deep venous thrombus within the left peroneal vein. 05/19/[address] IMPRESSION: No acute intracerebral pathology. Mild cerebral cortical atrophy and remote small vessel disease. Vascular calcification. Chronic left maxillary and ethmoid sinusitis. Hospital Course (1) Abdominal pain: (2) Urinary obstruction: (3) Adnexal mass: (4) Acute kidney injury superimposed on CKD: 85 yr old F with hx of ulcerative colitis and dementia who presented to ED 2/ to abd pain, unable to urinate and constipation. 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 SUPERVISOR ROLLING ROOM consulted - discussed with daughter at bedside, pt was seen by SUPERVISOR ROLLING ROOM in 2019 06/28 to similar finding Daughter reported that screwdown operator discussed with her and recommended that patient is not a candidate for surgery. Continue Pain control Discharge home on hospice Confusion Likely due to delirium/ metabolic encephalopathy in the setting of possible dementia (based on daughter's hx) + medication effects Seroquel 12.5mg HS started Acute L peroneal DVT Started on Eliquis. Daughter will like to dc on eliquis. HTN Patient started on amlodipine 5 mg Daughter wishes to continue medication even though going home on hospice Constipation Pain medicines likely contributing, continue bowel regimen Ulcerative colitis No acute issues Mesalamine discontinued in the setting of hospice Total Time Total Time Spent Total Time Spent (In Minutes): 45 Total Time Includes: Examination of the Patient, Discharge Planning and Medication Reconciliation Discharge Plan Discharge Items Patient Disposition: Hospice - Home Reason For Visit: Abdominal Pain Discharge Diagnosis: Urinary Retention due to Ovarian Mass DVT (blood clot in leg) Condition on Discharge: Fair Activity: As commented below Activity Comment: as tolerated Non-emergency contact: Primary Care Provider and Furnace Attendant Call non-emergency contact if: you have any medication questions and your pain is not controlled Follow-up/Referrals: Genoveva Torrez DO [Primary Care Provider] - Diet: Regular Addtl Attending Provider Instructions: You are doing to be discharged home on hospice. A urinary catheter has been placed to help drain urine. Please keep the catheter in place. Care instructions have been provided. Medicines for pain and nausea have been prescribed. You may also use Tylenol 650mg every 8 hours as needed. For the blood clot in your leg, a blood thinner (apixiban (Eliquis)) has been prescribed as well. Take Eliquis 10mg (two 5mg tablets) twice daily until 05/25. Then on 05/26, start Eliquis 5mg (one 5mg tablet) twice daily. You were started on a blood pressure medicine as well called amlodipine (Norva sc). To help with mood, quetiapine (Seroquel) has been started. Pending Studies at Discharge: No Stand-Alone Forms: [facility] Medications and DC Order Prescriptions: New quetiapine 25 mg Tablet 12.5 mg PO HS Qty: 30 RF: 0 acetaminophen 325 mg Tablet 650 mg PO Q8H PRN (Reason: pain) Qty: 1 RF: 0 polyethylene glycol 3350 [Miralax] 17 gram Powder In Packet 17 g PO DAILY Qty: 1 RF: 0 sennosides-docusate sodium [Senokot-S] 8.6-50 mg Tablet 1 tab PO HS Qty: 1 RF: 0 amlodipine [Norvasc] 5 mg Tablet 5 mg PO QAM Qty: 30 RF: 0 bisacodyl 10 mg Suppository 10 mg UT DAILY PRN (Reason: constipation) Qty: 12 RF: 0 ondansetron HCl [Zofran] 4 mg tablet 4 mg PO Q6H PRN (Reason: nausea and vomiting) Qty: 20 RF: 0 morphine concentrate 100 mg/5 mL (20 mg/mL) solution 5 mg PO Q6H PRN (Reason: pain) Qty: 30 RF: 0 lorazepam 0.5 mg tablet 0.5 mg PO Q8H PRN (Reason: anxiety) Qty: 14 RF: 0 Eliquis 5 mg tablet See Rx Instructions .ROUTE .COMPLEX Qty: 60 RF: 0 Discontinued mesalamine 1.2 gram tablet,delayed release (DR/EC) 2.4 g PO DAILY RF: 0 acetaminophen [Tylenol Ex Str Rapid Release] 500 mg Tablet 1,000 mg PO Q12H PRN (Reason: Fever Or Pain) RF: 0 Discharge Orders: Discharge Order (Routine); Ordered 05/22/21 Ordered By: Bambi Schilling/Other Patient Handouts: Indwelling Urinary Catheter Dc Admission Data Admit Date/Time: 05/15/21 17:06 Attending Provider: Milagros Ochoa I. Admit Provider: Yamileth Deng Primary Care Provider: Genoveva Torrez Other Providers: Samy Caldwell ; Loyda Brown ; [place] ; Carmenza Cole ; [facility] ; Eliel Esteves ; Nicholas Larkin Other Interventions: Discharge Summary Assessment (RN) Last Done: 12/27/21 11:40 Supervising Physician Co-Signing Physician Notes Patient seen She declined exam at the time Agree with findings and plans as detailed by Bambi SANDS Counseled daughter about discharge plans/medication education. Also called her pharm to clarify meds Spent 40mins on discharge
== END 2021-05-22 15:58 | disposition hospice, home (50) | DRG 693 ==
LOC: ED 13:52 → SUATTDRO 17:06 → EDINP 17:06 → 3E 05-16 17:16